=== PATIENT | female | born 1945 | race Caucasian/White ===

== ENCOUNTER 2016-02-25 13:24 | Inpatient (IN) | payer MEDICARE ==
[2016-02-25] MEDS ORDERED: ASPIRIN 81 MG TABLET, CHEWABLE PO ONE (13:35)
--- NOTE | 2016-02-25 13:37 | ER Document Report ---
ED Medical Screen (RME) - General Chief Complaint: Breathing Difficulty Stated Complaint: ABNORMAL LABS Time seen by provider: 13:33 Mode of Arrival: Ambulatory Information source: Patient Notes: 70 yo female presents to ed for abnormal labs and elevated bp and chest congestion with wheezing. She also has edema in both legs TRAVEL OUTSIDE OF THE [place] IN LAST 30 DAYS: No - HPI Onset: This morning Onset/Duration: Gradual Quality of pain: No pain Severity: None Pain Level: Denies Associated Symptoms: Leg swelling, Shortness of breath, Other - wheezing congestion Exacerbated by: Denies Relieved by: Denies Similar symptoms previously: Yes Recently seen / treated by doctor: Yes - Related Data Smoking: Non-smoker, Quit greater than 1 year Frequency of alcohol use: None Drug Abuse: None Allergies/Adverse Reactions: Sulfa (Sulfonamide Antibiotics) Allergy (Intermediate, Verified 05/08/13 10:53) Hives Past Medical History - Past Medical History Cardiac Medical History: Reports: Hx Hypertension Denies: Hx Heart Attack Pulmonary Medical History: Reports: Hx Asthma, Hx COPD Neurological Medical History: Reports: Hx Cerebrovascular Accident - X 3 RESIDULE EFFECTS RESOLVED, DIFFICULTY WALKING. Denies: Hx Seizures Endocrine Medical History: Reports: Hx Diabetes Mellitus Type 2 - with neuropathy GI Medical History: Denies: Hx Hepatitis, Hx Hiatal Hernia, Hx Ulcer Musculoskeltal Medical History: Reports Hx Arthritis Infectious Medical History: Denies: Hx Hepatitis Past Surgical History: Reports: Hx Cholecystectomy, Hx Hysterectomy, Hx Tubal Ligation. Denies: Hx Mastectomy, Hx Open Heart Surgery, Hx Pacemaker - Immunizations Hx Diphtheria, Pertussis, Tetanus Vaccination: No
--- NOTE | 2016-02-25 13:46 | EKG REPORT ---
SEVERITY:- ABNORMAL ECG - SINUS TACHYCARDIA ATRIAL PREMATURE COMPLEX NONSPECIFIC REPOL ABNORMALITY, DIFFUSE LEADS : Confirmed by: Jere Ryan 25-Feb-2016 13:21:57
[2016-02-25 14:01] LABS: ABSOLUTE BASOPHILS # (AUTO) 0.1 10^3/uL (0.0-0.2); ABSOLUTE EOSINOPHILS # (AUTO) 0.2 10^3/uL (0.0-0.6); ABSOLUTE LYMPHOCYTES (AUTO) 1.4 10^3/uL (0.5-4.7); ABSOLUTE MONOCYTES (AUTO) 0.4 10^3/uL (0.1-1.4); ABSOLUTE NEUT (AUTO) 5.5 10^3/uL (1.7-8.2); BASOPHILS % (AUTO) 0.9 % (0-2); EOSINOPHILS % (AUTO) 2.3 % (0-6); HEMATOCRIT 34.9 % (36.0-47.0); HEMOGLOBIN 11.8 g/dL (12.0-15.5); HGB HCT DIFFERENCE 0.5; MEAN CORPUSCULAR HEMOGLOBIN 29.8 pg (27.0-33.4); MEAN CORPUSCULAR HGB CONC 33.8 g/dL (32.0-36.0); MEAN CORPUSCULAR VOLUME 88 fl (80-97); MONOCYTES % (AUTO) 5.8 % (3-13); RED BLOOD COUNT 3.95 10^6/uL (3.72-5.28); RED CELL DISTRIBUTION WIDTH 15.1 % (11.5-14.0); WHITE BLOOD COUNT 7.6 10^3/uL (4.0-10.5)
[2016-02-25 14:20] LABS: ALANINE AMINOTRANSFERASE 40 U/L (9-52); ALBUMIN 3.7 g/dL (3.5-5.0); ALKALINE PHOSPHATASE 139 U/L (38-126); ANION GAP 10 (5-19); ASPARTATE AMINO TRANSFERASE 27 U/L (14-36); BILIRUBIN,TOTAL 0.5 mg/dL (0.2-1.3); BLOOD UREA NITROGEN 13 mg/dL (7-20); CALCIUM 9.2 mg/dL (8.4-10.2); CARBON DIOXIDE 25 mmol/L (22-30); CHLORIDE 107 mmol/L (98-107); CREATINE KINASE 202 U/L (30-135); CREATININE RESULT 1.11 mg/dL (0.52-1.25); GLUCOSE 190 mg/dL (75-110); MAGNESIUM 2.1 mg/dL (1.6-2.3); POTASSIUM 4.8 mmol/L (3.6-5.0)
[2016-02-25 14:32] LABS: CREATINE KINASE MB 0.99 ng/mL (<4.55)
[2016-02-25 14:38] LABS: TROPONIN I 0.046 ng/mL
[2016-02-25] MEDS ORDERED: LISINOPRIL 10 MG TABLET PO ONE (14:52)
--- NOTE | 2016-02-25 16:10 | ER Document Report ---
ED General - General Chief Complaint: Breathing Difficulty Stated Complaint: ABNORMAL LABS Mode of Arrival: Ambulatory Notes: The patient is a 70-year-old female presents from her primary care physician after her blood pressure was 190s over 90s. She had an EKG performed and it was concerning and she was sent to the ER. She is only having mild shortness of breath with a wet cough and mild B/L LE swelling. She has never been diagnosed with hypertension. She denies chest pain, nausea, vomiting, fevers, cough, sputum, rash, back pain, abdominal pain or headache. TRAVEL OUTSIDE OF THE [place] IN LAST 30 DAYS: No - Related Data Allergies/Adverse Reactions: Sulfa (Sulfonamide Antibiotics) Allergy (Intermediate, Verified 05/08/13 10:53) Hives Past Medical History - General Information source: Patient - Social History Smoking Status: Never Smoker Frequency of alcohol use: None Drug Abuse: None Family History: Reviewed & Not Pertinent Patient has suicidal ideation: No Patient has homicidal ideation: No - Past Medical History Cardiac Medical History: Reports: Hx Hypertension Denies: Hx Heart Attack Pulmonary Medical History: Reports: Hx Asthma, Hx COPD Neurological Medical History: Reports: Hx Cerebrovascular Accident - X 3 RESIDULE EFFECTS RESOLVED, DIFFICULTY WALKING. Denies: Hx Seizures Endocrine Medical History: Reports: Hx Diabetes Mellitus Type 2 - with neuropathy GI Medical History: Denies: Hx Hepatitis, Hx Hiatal Hernia, Hx Ulcer Musculoskeltal Medical History: Reports Hx Arthritis Infectious Medical History: Denies: Hx Hepatitis Past Surgical History: Reports: Hx Cholecystectomy, Hx Hysterectomy, Hx Tubal Ligation. Denies: Hx Mastectomy, Hx Open Heart Surgery, Hx Pacemaker - Immunizations Hx Diphtheria, Pertussis, Tetanus Vaccination: No Review of Systems - Review of Systems Notes: REVIEW OF SYSTEMS: CONSTITUTIONAL: Denies fever, chills, or sweats. Denies recent illness. EENT: Denies eye, ear, throat, or mouth pain or symptoms. Denies nasal or sinus congestion. CARDIOVASCULAR: Denies chest pain, syncope. RESPIRATORY: Denies cough, cold, or chest congestion. +SOB. Denies difficulty breathing, or wheezing. GASTROINTESTINAL: Denies abdominal pain. Denies nausea, vomiting, or diarrhea. Denies constipation. GENITOURINARY: Denies difficulty urinating, painful urination, burning, frequency, or blood in urine. MUSCULOSKELETAL: Denies neck or back pain or joint pain. +B/L LE edema SKIN: Denies rash or skin lesions. HEMATOLOGIC: Denies easy bruising or bleeding. LYMPHATIC: Denies swollen, enlarged glands. NEUROLOGICAL: Denies altered mental status or loss of consciousness. Denies headache. Denies weakness or paralysis or loss of use of either side. Denies problems with gait or speech. Denies sensory or motor loss. PSYCHIATRIC: Denies anxiety or stress or depression. ALL OTHER SYSTEMS REVIEWED AND NEGATIVE. Physical Exam - Vital signs Vitals: Temp Pulse Resp BP Pulse Ox 97.9 F 104 H 18 217/106 H 96 02/25/16 13:31 02/25/16 13:31 02/25/16 13:31 02/25/16 13:31 02/25/16 13:31 - Notes Notes: PHYSICAL EXAMINATION: GENERAL: Well-appearing, well-nourished and in no acute distress. HEAD: Atraumatic, normocephalic. EYES: Pupils equal round and reactive to light, extraocular movements intact, sclera anicteric, conjunctiva are normal. ENT: nares patent, oropharynx clear without exudates. Moist mucous membranes. NECK: Normal range of motion, supple without lymphadenopathy LUNGS: Mild rhonchi. No increased work of breathing. HEART: Tachycardia. No peripheral edema. ABDOMEN: Soft, nontender, normoactive bowel sounds. No guarding, no rebound. No masses appreciated. EXTREMITIES: Normal range of motion. Mild B/L LE edema. No cyanosis. NEUROLOGICAL: Cranial nerves grossly intact. Normal speech, normal gait. Normal sensory, motor, and reflex exams. PSYCH: Normal mood, normal affect. SKIN: Warm, Dry, normal turgor, no rashes or lesions noted. Course - Re-evaluation Re-evalutation: Patient without chest pain. EKG does not show acute ischemia. HEART score 2. Patient has tachycardia and is low to moderate risk per well's. D-dimer is elevated and CTA chest obtained. 02/25/16 17:31 CTA does not show evidence of pulmonary embolism, but does show evidence of pulmonary edema. Patient has no history of hypertension or CHF. Will provide IV Lasix and admit as Inpatient for further evaluation and treatment of new onset pulmonary edema. Spoke to Dr. Polanco and she has accepted patient at 17:30. - Vital Signs Vital signs: Temp Pulse Resp BP Pulse Ox 97.9 F 104 H 27 H 217/106 H 95 02/25/16 13:31 02/25/16 13:31 02/25/16 15:03 02/25/16 13:31 02/25/16 15:03 - Laboratory Result Diagrams: 02/25/16 13:40 02/25/16 13:40 Laboratory results interpreted by me: 02/25/16 02/25/16 02/25/16 13:40 13:40 13:40 Hgb 11.8 L Hct 34.9 L RDW 15.1 H D-Dimer 1.24 H Est GFR ( Amer) 59 L Est GFR (Non-Af Amer) 49 L Glucose 190 H Alkaline Phosphatase 139 H Creatine Kinase 202 H - Diagnostic Test Radiology reviewed: Image reviewed Radiology results interpreted by me: CTA: Evidence of pulmonary edema. No PE. - EKG Interpretation by Me EKG shows normal: Sinus rhythm, Intervals, QRS Complexes, ST-T Waves Rate: Tachycardia Rhythm: NSR Critical Care Note - Critical Care Note Total time excluding time spent on procedures (mins): 40 Discharge - Discharge Clinical Impression: Shortness of breath Pulmonary edema Qualifiers: Chronicity: acute Qualified Code(s): J81.0 - Acute pulmonary edema Condition: Stable Disposition: ADMITTED INPATIENT Admitting Provider: Hospitalist - [facility] Admitted: Telemetry
[2016-02-25] MEDS ORDERED: FUROSEMIDE INJ/PF 40 MG/4 ML SDV IV ONE (17:28)
[2016-02-25] MEDS ORDERED: DEXTROSE 50%-WATER 25 GM/50 ML DISP.SYRIN IV PRN ×2 (18:27)
[2016-02-25] MEDS ORDERED: GLUCAGON,HUMAN RECOMB 1 MG INJ IM PRN (18:27)
[2016-02-25] MEDS ORDERED: DEXTROSE 40% GEL 15 GM TUBE PO PRN ×2 (18:27)
[2016-02-25] MEDS ORDERED: CARVEDILOL 6.25 MG TABLET ONE (18:42)
--- NOTE | 2016-02-25 18:55 | PDOC H&P ---
History of Present Illness Admission Date/PCP: 02/25/2016 [facility] History of Present Illness: VAMSHI LYN is a 70 year old female who was sent from Urgent Care for evaluation of an abnormal EKG and Hypertension Patient gave a history of increasing dyspnea on exertion , pedal edema ; no crushing chest pains she also gives a history of intermittent claudication both lower extremities when she walks 300 feet In ED on arival BP was 217/106, a chest xray was consistent with CHF and bilateral effusions; She was admitted with a diagnosis of new onset CHF and accelerated HTN under Hospitalist's service Past Medical History Cardiac Medical History: Reports: Hypertension Denies: Myocardial Infarction Pulmonary Medical History: Reports: Asthma, Chronic Obstructive Pulmonary Disease (COPD) Neurological Medical History: Denies: Seizures Endocrine Medical History: Reports: Diabetes Mellitus Type 2 - with neuropathy GI Medical History: Denies: Hepatitis, Hiatal Hernia Musculoskeltal Medical History: Reports: Arthritis Hematology: Denies: Anemia, Sickle Cell Disease Past Surgical History Past Surgical History: Reports: Cholecystectomy, Hysterectomy, Tubal Ligation, Other - cataract surgery Denies: Amputation, Mastectomy, Pacemaker Social History Information Source: Patient Lives with: Family Smoking Status: Never Smoker Frequency of Alcohol Use: None Drugs: None Hx Prescription Drug Abuse: No - Advance Directive Resuscitation Status: Full Code Surrogate healthcare decision maker:: Simon Lyn Family History Parental Family History Reviewed: Yes - father mother heart disease Children Family History Reviewed: Yes - 2 sons in good health Sibling(s) Family History Reviewed.: Yes - brother unknown cause Medication/Allergy Home Medications: Gabapentin [Neurontin 300 Mg Capsule] 600 mg PO TID 06/29/12 Glipizide [Glucotrol Xl] 10 mg PO BID 06/29/12 Naproxen 500 mg PO BID 02/05/14 Naproxen [Naprosyn 250 mg Tablet] 500 mg PO DAILY PRN #30 tablet 02/05/14 Omeprazole [Prilosec] 20 mg PO DAILY #30 capsule. 02/05/14 Tramadol HCl [Ultram 50 mg Tablet] 50 mg PO TID 02/05/14 Diazepam [Valium 5 Mg Tablet] 5 mg PO Q8HP PRN #20 tablet 09/14/15 Diclofenac Sodium [Voltaren] 75 mg PO BIDP PRN #20 tablet. 09/14/15 Docusate Sodium [Colace 100 mg Capsule] 100 mg PO BID #60 capsule 12/27/15 Lansoprazole 30 mg PO DAILY #30 capsule. 12/27/15 Sennosides [Senna] 8.6 mg PO QHS #30 tablet 12/27/15 Sucralfate [Carafate 1 gm Tablet] 1 gm PO ACHS #30 tablet 12/27/15 Allergies/Adverse Reactions: Sulfa (Sulfonamide Antibiotics) Allergy (Intermediate, Verified 05/08/13 10:53) Hives Review of Systems Constitutional: ABSENT: chills, fever(s), headache(s), weight gain, weight loss Eyes: ABSENT: visual disturbances Ears: ABSENT: hearing changes Cardiovascular: PRESENT: chest pain - under right breast at times non exertional. ABSENT: dyspnea on exertion, edema, orthropnea, palpitations Respiratory: PRESENT: as per HPI, dyspnea. ABSENT: cough, hemoptysis, sputum Gastrointestinal: ABSENT: abdominal pain, constipation, diarrhea, hematemesis, hematochezia, nausea, vomiting Genitourinary: ABSENT: dysuria, hematuria Musculoskeletal: PRESENT: other - pain legs(calves ) if she ambulates 300 feet cramps resolve at rest. ABSENT: joint swelling Integumentary: ABSENT: rash, wounds Neurological: ABSENT: abnormal gait, abnormal speech, confusion, dizziness, focal weakness, syncope Psychiatric: ABSENT: anxiety, depression, homidical ideation, suicidal ideation Endocrine: ABSENT: cold intolerance, heat intolerance, polydipsia, polyuria Hematologic/Lymphatic: ABSENT: easy bleeding, easy bruising Physical Exam Vital Signs: Temp Pulse Resp BP Pulse Ox 97.9 F 104 H 23 H 161/100 H 99 02/25/16 13:31 02/25/16 13:31 02/25/16 17:23 02/25/16 17:23 02/25/16 17:23 Intake & Output 02/24/16 02/25/16 02/26/16 00:59 00:59 00:59 Weight 69.717 kg General appearance: PRESENT: no acute distress, well-developed, well-nourished Head exam: PRESENT: atraumatic, normocephalic Eye exam: PRESENT: conjunctiva pink, EOMI, PERRLA. ABSENT: scleral icterus Ear exam: PRESENT: normal external ear exam Mouth exam: PRESENT: moist, tongue midline Neck exam: ABSENT: carotid bruit, JVD, lymphadenopathy, thyromegaly Respiratory exam: PRESENT: clear to auscultation gita. ABSENT: rales, rhonchi, wheezes Cardiovascular exam: PRESENT: RRR. ABSENT: diastolic murmur, rubs, systolic murmur Pulses: PRESENT: normal dorsalis pedis pul Vascular exam: PRESENT: normal capillary refill GI/Abdominal exam: PRESENT: normal bowel sounds, soft. ABSENT: distended, guarding, mass, organolmegaly, rebound, tenderness Rectal exam: PRESENT: deferred Extremities exam: PRESENT: full ROM. ABSENT: calf tenderness, clubbing, pedal edema Neurological exam: PRESENT: alert, awake, oriented to person, oriented to place , oriented to time, oriented to situation, CN II-XII grossly intact. ABSENT: motor sensory deficit Psychiatric exam: PRESENT: appropriate affect, normal mood. ABSENT: homicidal ideation, suicidal ideation Skin exam: PRESENT: dry, intact, warm. ABSENT: cyanosis, rash Results Laboratory Results: 02/25/16 13:40 02/25/16 13:40 02/25/16 02/25/16 13:40 13:40 WBC 7.6 RBC 3.95 Hgb 11.8 L Hct 34.9 L MCV 88 MCH 29.8 MCHC 33.8 RDW 15.1 H Plt Count 296 Seg Neutrophils % 73.0 Lymphocytes % 18.0 Monocytes % 5.8 Eosinophils % 2.3 Basophils % 0.9 Absolute Neutrophils 5.5 Absolute Lymphocytes 1.4 Absolute Monocytes 0.4 Absolute Eosinophils 0.2 Absolute Basophils 0.1 Sodium 142.0 Potassium 4.8 Chloride 107 Carbon Dioxide 25 Anion Gap 10 BUN 13 Creatinine 1.11 Est GFR ( Amer) 59 L Est GFR (Non-Af Amer) 49 L Glucose 190 H Calcium 9.2 Magnesium 2.1 Total Bilirubin 0.5 AST 27 ALT 40 Alkaline Phosphatase 139 H Total Protein 7.0 Albumin 3.7 02/25/16 02/25/16 02/25/16 13:40 13:40 16:28 Creatine Kinase 202 H CK-MB (CK-2) 0.99 Troponin I 0.046 0.045 EKG Comments: sinus tachycardia ST-T changes on precordial leads no previous EKG to compare with Impressions: Chest X-Ray 02/25/16 13:35 IMPRESSION: There is some blunting of the right costophrenic angle suggesting a tiny pleural effusion. Visualized lung leija are otherwise clear. Other findings as noted above Chest/Abdomen CTA 02/25/16 16:09 IMPRESSION: Bilateral pleural effusions and mild interstitial prominence, suggest pulmonary edema. NO PULMONARY EMBOLI. Assessment & Plan - Diagnosis (1) CHF (congestive heart failure) Qualifiers: Congestive heart failure type: unspecified congestive heart failure type Is this a current diagnosis for this admission?: YesPlan: initiate lasix coreg ASA lipitor echo in am (2) Accelerated essential hypertension Is this a current diagnosis for this admission?: YesPlan: reevaluate BP in am BP improved with diuresis (3) Claudication of both lower extremities Is this a current diagnosis for this admission?: YesPlan: likely PVD arterial doppler lower extrmities ordered ASA (4) Abnormal EKG Is this a current diagnosis for this admission?: YesPlan: initial troponin intermediate range serial troponins and EKG (5) Diabetes Qualifiers: Diabetes mellitus type: type 2 Diabetes mellitus complication status: with unspecified complications Diabetes mellitus custodial insulin use: without terminal operations manager use Qualified Code(s): E11.8 - Type 2 diabetes mellitus with unspecified complications Is this a current diagnosis for this admission?: YesPlan: obtain Hemoglobin A1C accuchecks TERESO HS lispro coverage - Time Time Spent: Greater than 70 Minutes
[2016-02-25] MEDS ORDERED: CARVEDILOL 6.25 MG TABLET PO ONE (19:00)
[2016-02-25] MEDS ORDERED: ATORVASTATIN CALCIUM 40 MG TABLET PO SCH (22:00)
[2016-02-25] MEDS: CARVEDILOL 6.25 MG TABLET PO SCH (22:25)
[2016-02-25] MEDS: INSULIN LISPRO 100 UNIT/ML 3 ML VIAL SUBCUT PRN (22:26)
[2016-02-25] MEDS: FAMOTIDINE INJ/PF 20 MG/2 ML SDV IV SCH (22:27)
[2016-02-25] MEDS: FUROSEMIDE INJ/PF 40 MG/4 ML SDV IV SCH (22:27)
[2016-02-26] MEDS: INSULIN LISPRO 100 UNIT/ML 3 ML VIAL SUBCUT PRN ×2 (07:48→11:25)
[2016-02-26 07:50] LABS: ABSOLUTE EOSINOPHILS # (AUTO) 0.1 10^3/uL (0.0-0.6); ABSOLUTE LYMPHOCYTES (AUTO) 1.3 10^3/uL (0.5-4.7); ABSOLUTE MONOCYTES (AUTO) 0.5 10^3/uL (0.1-1.4); ABSOLUTE NEUT (AUTO) 5.5 10^3/uL (1.7-8.2); BASOPHILS % (AUTO) 0.6 % (0-2); EOSINOPHILS % (AUTO) 0.9 % (0-6); HEMATOCRIT 34.6 % (36.0-47.0); HEMOGLOBIN 11.4 g/dL (12.0-15.5); HGB HCT DIFFERENCE -0.4; MEAN CORPUSCULAR HEMOGLOBIN 28.9 pg (27.0-33.4); MEAN CORPUSCULAR HGB CONC 33.1 g/dL (32.0-36.0); MEAN CORPUSCULAR VOLUME 87 fl (80-97); MONOCYTES % (AUTO) 6.3 % (3-13); RED BLOOD COUNT 3.96 10^6/uL (3.72-5.28); RED CELL DISTRIBUTION WIDTH 14.5 % (11.5-14.0); SEGMENTED NEUTROPHILS % (AUTO) 74.2 % (42-78); WHITE BLOOD COUNT 7.4 10^3/uL (4.0-10.5)
[2016-02-26 08:00] LABS: ALANINE AMINOTRANSFERASE 32 U/L (9-52); ALBUMIN 3.6 g/dL (3.5-5.0); ALKALINE PHOSPHATASE 132 U/L (38-126); ANION GAP 14 (5-19); ASPARTATE AMINO TRANSFERASE 28 U/L (14-36); BILIRUBIN,TOTAL 0.8 mg/dL (0.2-1.3); BLOOD UREA NITROGEN 17 mg/dL (7-20); CALCIUM 9.4 mg/dL (8.4-10.2); CARBON DIOXIDE 22 mmol/L (22-30); CHLORIDE 107 mmol/L (98-107); CHOLESTEROL 321.02 mg/dL (0-200); CREATININE RESULT 1.34 mg/dL (0.52-1.25); Direct HDL 64 mg/dL (>40); GLUCOSE 142 mg/dL (75-110); POTASSIUM 4.4 mmol/L (3.6-5.0); SODIUM 142.7 mmol/L (137-145); TRIGLYCERIDES 135 mg/dL (<150)
[2016-02-26] MEDS ORDERED: ENOXAPARIN SODIUM INJ 40 MG/0.4 ML DISP.SYRIN SUBCUT SCH (08:00)
[2016-02-26 08:21] LABS: DIRECT LDL 247 mg/dL (<100)
[2016-02-26] MEDS: FAMOTIDINE INJ/PF 20 MG/2 ML SDV IV SCH (09:14)
[2016-02-26] MEDS: FUROSEMIDE INJ/PF 40 MG/4 ML SDV IV SCH (09:15)
[2016-02-26] MEDS: CARVEDILOL 6.25 MG TABLET PO SCH (09:15)
[2016-02-26] MEDS ORDERED: ASPIRIN 325 MG TABLET, ENT COATED PO SCH (10:00)
--- NOTE | 2016-02-26 10:19 | EKG REPORT ---
SEVERITY:- ABNORMAL ECG - SINUS RHYTHM ANTERIOR INFARCT, OLD BORDERLINE PROLONGED QT INTERVAL : Confirmed by: Jere Ryan 26-Feb-2016 10:18:28
--- NOTE | 2016-02-26 12:52 | XCELERA REPORT ---
[address] [address] Lower Extremity Arterial Evaluation Name: VAMSHI DOUGHERTY Age: 70 yrs Gender: Female : 1945 Patient Status: Inpatient Patient Location: [id number]\S\314\S\A Study Date: 02/26/2016 09:55 AM Procedure: A color flow and duplex scan of the lower extremity arteries was performed bilaterally with velocity and waveform anaylsis. Ankle brachial indicies performed. 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 Biphasic in the Infrageniculate vessels. The ankle-brachial index is not obtainable, non compressible. 20-49 % stenosis is noted at the Infrageniculate level. Left Side Arterial Evaluation Normal velocity, waveform and triphasic flow are present, from the Common Femoral artery down to the Popliteal artery. Monophasic in the Infrageniculate vessels. Occluded Posterior Tibial artery The ankle-brachial index is not obtainable, non compressible. 50-99 % stenosis is noted at the Infrageniculate level. sequential disease as noted. Interpretation Summary Moderate hemodynamically significant lesions in the right lower extremity only, on duplex imaging, at rest. Severe hemodynamically significant lesions in the left lower extremity only, on duplex imaging, at rest. : IRVING RODRIGUEZ > Srinivasa Razo
--- NOTE | 2016-02-26 13:22 | XCELERA REPORT ---
[address] [address] Transthoracic Echocardiogram Report Name: VAMSHI DOUGHERTY Age: 70 yrs Gender: Female : 1945 Patient Status: Inpatient Patient Location: 3W\S\314\[id number]\A Study Date: 02/26/2016 09:28 AM Height: 63 in Weight: 152 lb BSA: 1.7 m2 Procedure: A two-dimensional transthoracic echocardiogram with color flow and Doppler was performed. The study was technically adequate with some images being suboptimal in quality. Reason For Study: SOB History: Shortness of breath. Ordering Physician: IRVING RODRIGUEZ Performed By: Aruna Feliciano Interpretation Summary The left ventricle is normal in size. There is normal left ventricular wall thickness. LV EF is 60% Left ventricular systolic function is normal. Doppler measurements suggest impaired left ventricular relaxation, which is associated with grade I/IV or mild diastolic dysfunction The left ventricular wall motion is normal. There is no thrombus. The right ventricle is normal in size and function. The left atrial size is normal. There is no evidence of mitral valve prolapse. There is no mitral valve stenosis. There is a mild amount of mitral regurgitation There is no aortic valve stenosis There is no LVOT obstruction. No aortic regurgitation is present. There is no tricuspid stenosis. There is a trace to mild amount of tricuspid regurgitation There is mild pulmonary hypertension by echo RVSP is 36 mm of Hg , with RA mean of 5. There is no pericardial effusion. MMode/2D Measurements \T\ Calculations RVDd: 2.3 cm LVIDd: 4.4 cm FS: 26.6 % Ao root diam: 2.4 cm IVSd: 1.1 cm LVIDs: 3.2 cm EDV(Teich): 85.5 ml LVPWd: 1.1 cm ESV(Teich): 40.8 ml Ao root area: 4.5 cm2 EF(Teich): 52.3 % LA dimension: 3.5 cm Doppler Measurements \T\ Calculations MV E max mansi: MV P1/2t max mansi: Ao V2 max: LV V1 max P.4 cm/sec 83.4 cm/sec 126.1 cm/sec 4.2 mmHg MV A max mansi: MV P1/2t: 48.8 msec Ao max PG: LV V1 max: 108.6 cm/sec 6.4 mmHg 102.7 cm/sec MV E/A: 0.78 MVA(P1/2t): 4.5 cm2 MV dec slope: 500.4 cm/sec2 MV dec time: 0.15 sec PA V2 max: TR max mansi: 109.1 cm/sec 278.3 cm/sec PA max P.8 mmHgTR max P.0 mmHg Left Ventricle The left ventricle is normal in size. There is normal left ventricular wall thickness. LV EF is 60%. Left ventricular systolic function is normal. Doppler measurements suggest impaired left ventricular relaxation, which is associated with grade I/IV or mild diastolic dysfunction. The left ventricular wall motion is normal. There is no thrombus. There is no ventricular septal defect visualized. Right Ventricle The right ventricle is normal in size and function. Atria The right atrium is normal. The left atrial size is normal. The interatrial septum is intact with no evidence for an atrial septal defect. Mitral Valve There is no evidence of mitral valve prolapse. There is no vegetation seen on the mitral valve. There is no mitral valve stenosis. There is a mild amount of mitral regurgitation. Aortic Valve The aortic valve is trileaflet. The aortic valve opens well. There is no aortic valvular vegetation. There is no aortic valve stenosis. There is no LVOT obstruction. No aortic regurgitation is present. Tricuspid Valve There is no tricuspid stenosis. There is a trace to mild amount of tricuspid regurgitation. There is mild pulmonary hypertension by echo. RVSP is 36 mm of Hg , with RA mean of 5. Pulmonic Valve There is no pulmonic valvular stenosis. There is no pulmonic valvular regurgitation. Great Vessels The aortic root is normal size. Effusions There is no pericardial effusion. : IRVING RODRIGUEZ > Natasha Holcomb
[2016-02-26] MEDS ORDERED: TRAMADOL HCL 50 MG TABLET PO PRN (13:45)
[2016-02-26] MEDS ORDERED: ALBUTEROL SULFATE HFA (90 MCG/PUFF) 200 PUFF/8.5 GM MDI IH PRN (14:59)
[2016-02-26] MEDS ORDERED: CLOPIDOGREL BISULFATE 75 MG TABLET PO ONE (15:00)
[2016-02-26] MEDS ORDERED: FUROSEMIDE INJ/PF 20 MG/2 ML SDV IV ONE (15:00)
[2016-02-26 15:51] VITALS: BP 133/82
--- NOTE | 2016-02-26 15:58 | PDOC DISCHARGE SUMMARY ---
General - Admit/Disc Date/PCP Admission Date/Primary Care Provider: 02/25/16 18:13 PMD at [facility] Discharge Date: 02/26/16 - Discharge Diagnosis (1) CHF (congestive heart failure) Is this a current diagnosis for this admission?: YesSummary: CXR showed fluid overload CTA chest : no PE small pleural effusions echo showed preserved LVF mild diastolic dysfunction ; mild pulmonary hypertension Patient was treated with lasix IV , lisinopril, coreg (2) Accelerated essential hypertension Is this a current diagnosis for this admission?: YesSummary: adolfo presented with a BP of 217/106 she responded to lasix, lisinopril , coreg at discharge BP is 160/90 (3) Claudication of both lower extremities Is this a current diagnosis for this admission?: YesSummary: claudication both lower extremities after walking 300 feet arterial doppler showed severe PVD 20-49% stenosis on Right, 50-69% stenosis on Left paatient was discharged on plavix and lipitor and referred to Outpatient Vascular Surgeon (4) Abnormal EKG Is this a current diagnosis for this admission?: YesSummary: EKG with ST-T changes precaordiallaeds troponins intermediate range outpatient stress test recommended patient was discharged on lipitor and plavix (5) Diabetes Is this a current diagnosis for this admission?: YesSummary: hemoglobin A1C was 6 patient was discharged on prior med regimen (6) Hyperlipidemia Is this a current diagnosis for this admission?: Yes (7) COPD (chronic obstructive pulmonary disease) with acute bronchitis Is this a current diagnosis for this admission?: YesSummary: mild no purulent sputum added albuterol inhaler to med list - Additional Information Resuscitation Status: Do Not Resuscitate Discharge Diet: Cardiac, Diabetic Home Medications: Gabapentin [Neurontin 300 Mg Capsule] 800 mg PO DAILY 06/29/12 Glipizide [Glucotrol Xl] 10 mg PO BID 06/29/12 Tramadol HCl [Ultram 50 mg Tablet] 50 mg PO TID 02/05/14 Albuterol Sulfate [Proair HFA Inhalation Aerosol 8.5 gm MDI] 2 puff IH Q4HP PRN #1 hfa.aer.ad 02/26/16 Atorvastatin Calcium [Lipitor 40 mg Tablet] 40 mg PO QHS #30 tablet 02/26/16 Carvedilol [Coreg 12.5 mg Tablet] 12.5 mg PO Q12 #60 tablet 02/26/16 Clopidogrel Bisulfate [Plavix 75 mg Tablet] 75 mg PO DAILY #30 tablet 02/26/16 Furosemide [Lasix 20 mg Tablet] 20 mg PO QAM #30 tablet 02/26/16 Lisinopril [Prinivil] 20 mg PO DAILY #30 tablet 02/26/16 Sitagliptin Phos/Metformin HCl [Janumet 50-1,000 mg Tablet] 50 mg PO DAILY 02/25 History of Present Illness Patient complains of: shortness of breath History of Present Illness: VAMSHI DOUGHERTY is a 70 year old female who was sent from Urgent Care for evaluation of an abnormal EKG and Hypertension Patient gave a history of increasing dyspnea on exertion , pedal edema ; no crushing chest pains she also gives a history of intermittent claudication both lower extremities when she walks 300 feet In ED on arival BP was 217/106, a chest xray was consistent with CHF and bilateral effusions; She was admitted with a diagnosis of new onset CHF and accelerated HTN under Hospitalist's service Hospital Course Hospital Course: see above Physical Exam Vital Signs: Temp Pulse Resp BP Pulse Ox 98.1 F 92 20 160/90 H 98 02/26/16 11:31 02/26/16 14:00 02/26/16 11:31 02/26/16 11:31 02/26/16 11:31 Intake & Output 02/25/16 02/26/16 02/27/16 00:59 00:59 00:59 Intake Total 636 Balance 636 Weight 69.3 kg 69.3 kg General appearance: PRESENT: no acute distress, well-developed, well-nourished Head exam: PRESENT: atraumatic, normocephalic Eye exam: PRESENT: conjunctiva pink, EOMI, PERRLA. ABSENT: scleral icterus Ear exam: PRESENT: normal external ear exam Mouth exam: PRESENT: moist, tongue midline Neck exam: ABSENT: carotid bruit, JVD, lymphadenopathy, thyromegaly Respiratory exam: PRESENT: clear to auscultation gita. ABSENT: rales, rhonchi, wheezes Cardiovascular exam: PRESENT: RRR. ABSENT: diastolic murmur, rubs, systolic murmur Pulses: PRESENT: normal dorsalis pedis pul Vascular exam: PRESENT: normal capillary refill GI/Abdominal exam: PRESENT: normal bowel sounds, soft. ABSENT: distended, guarding, mass, organolmegaly, rebound, tenderness Rectal exam: PRESENT: deferred Extremities exam: PRESENT: full ROM. ABSENT: calf tenderness, clubbing, pedal edema Neurological exam: PRESENT: alert, awake, oriented to person, oriented to place , oriented to time, oriented to situation, CN II-XII grossly intact. ABSENT: motor sensory deficit Psychiatric exam: PRESENT: appropriate affect, normal mood. ABSENT: homicidal ideation, suicidal ideation Skin exam: PRESENT: dry, intact, warm. ABSENT: cyanosis, rash Results Laboratory Results: 02/26/16 06:53 02/26/16 06:53 02/26/16 02/26/16 02/26/16 06:53 06:53 06:53 WBC 7.4 RBC 3.96 Hgb 11.4 L Hct 34.6 L MCV 87 MCH 28.9 MCHC 33.1 RDW 14.5 H Plt Count 300 Seg Neutrophils % 74.2 Lymphocytes % 18.0 Monocytes % 6.3 Eosinophils % 0.9 Basophils % 0.6 Absolute Neutrophils 5.5 Absolute Lymphocytes 1.3 Absolute Monocytes 0.5 Absolute Eosinophils 0.1 Absolute Basophils 0.0 Sodium 142.7 Potassium 4.4 Chloride 107 Carbon Dioxide 22 Anion Gap 14 BUN 17 Creatinine 1.34 H Est GFR ( Amer) 47 L Est GFR (Non-Af Amer) 39 L Glucose 142 H Calcium 9.4 Magnesium 2.0 Total Bilirubin 0.8 AST 28 ALT 32 Alkaline Phosphatase 132 H Total Protein 7.0 Albumin 3.6 Triglycerides 135 Cholesterol 321.02 H LDL Cholesterol Direct 247 H VLDL Cholesterol 27.0 HDL Cholesterol 64 TSH 0.94 02/25/16 02/26/16 02/26/16 19:53 01:58 06:53 Troponin I 0.047 0.053 NT-Pro-B Natriuret Pep 7120 H Impressions: Chest X-Ray 02/25/16 13:35 IMPRESSION: There is some blunting of the right costophrenic angle suggesting a tiny pleural effusion. Visualized lung leija are otherwise clear. Other findings as noted above Chest/Abdomen CTA 02/25/16 16:09 IMPRESSION: Bilateral pleural effusions and mild interstitial prominence, suggest pulmonary edema. NO PULMONARY EMBOLI. Plan Discharge Plan: discharge home to follow up with PMD as outpatient Time Spent: Greater than 30 Minutes
[2016-02-26] MEDS ORDERED: FUROSEMIDE INJ/PF 20 MG/2 ML SDV IV SCH (22:00)
[2016-02-27] MEDS ORDERED: LISINOPRIL 10 MG TABLET PO SCH ×2 (10:00)
[2016-02-27] MEDS ORDERED: CLOPIDOGREL BISULFATE 75 MG TABLET PO SCH (10:00)
--- NOTE | 2016-02-29 10:48 | CONSULTATION REPORT E ---
Consultation Report NAME: VAMSHI DOUGHERTY : 1945 AGE: 70Y DATE: 02/26/2016 314 A TO: JAVIER GREEN M.D. FROM: Requesting Physician REASON FOR CONSULTATION: Congestive heart failure. HISTORY: The patient is a 70-year-old female with known history of hypertension and diabetes mellitus with diabetic nephropathy and neuropathy who states that since has been having some runny nose and symptoms of upper respiratory tract infection and subsequently has been having shortness of breath with wheezing and orthopnea and cough productive of whitish sputum. Yesterday she went to primary care physician who saw that she had abnormal labs and also uncontrolled blood pressure and sent to the ER. It was reported on the chest x-ray there might be some mild prominence of flash congestive heart failure on the primary CTA. On the primary CTA, there was no pulmonary emboli seen. The patient denies any chest pain or discomfort. There is no PND. There is some mild leg edema which has now come down to trace edema after she was diuresed in the ER. She has had some mild lower extremity edema. There is no recurrent TIA or CVA symptom. PAST MEDICAL HISTORY: Positive for: 1. Hypertension. 2. History of diabetes mellitus type 2, noninsulin dependent. 3. The patient has diabetic neuropathy. The patient has also some degree of nephropathy with the patient's GFR being 36 in March 2015. 4. She has significant pain in her legs. It is not clear whether the patient has claudication because she says she always hurts in her lower extremities due to neuropathy. 5. The patient states she has had 3 episodes of CVA from which she has fully recovered except that her gait is not very steady and has to use a walker occasionally. She states that the last CVA was more than 11 years ago. She in the past has had some episodes of rapid beating of the heart but that has not recurred in a long time. She has no syncope. There is no history of ND or coronary artery disease or anginal symptoms. 6. The patient also has a history of asthma and COPD. There is no history of seizures. PAST SURGICAL HISTORY: 1. Cholecystectomy. 2. Hysterectomy. 3. Tubal ligation. FAMILY HISTORY: Negative for coronary artery disease. Positive for hypertension and diabetes. CODE STATUS: This patient is a FULL CODE. Her is her surrogate healthcare decision maker. SOCIAL HISTORY: The patient does not smoke. There is no history of ETOH abuse. MEDICATIONS: As per the MAR which is: 1. Aspirin 325 mg p.o. now and 81 mg p.o. daily. 2. Lisinopril 10 mg p.o. daily along with 20 mg of lisinopril p.o. daily, a total of 30 mg per day. 3. Plavix 75 mg p.o. daily. 4. Lasix 20 mg IM x1. 5. Albuterol sulfate 2 puffs inhalation q.4 hours p.r.n. 6. Tramadol 50 mg p.o. t.i.d. 7. Aspirin 325 mg p.o. daily. 8. Lovenox 40 mg subcutaneously. 9. Atorvastatin 40 mg p.o. daily at bedtime. 10. Coreg 6.25 mg p.o. q.12 hours. 11. Sliding scale insulin coverage of t.i.d. and at bedtime. 12. Hypoglycemic precautions with glucose 15 g p.o. p.r.n. and 30 g p.o. p.r.n. She is also on hypoglycemic precautions with Dextrose 50% at 25 g IV and 12.5 g IV p.r.n. hypoglycemia. She is on Glucagon 1 mg IM p.r.n. PHYSICAL EXAMINATION: GENERAL: On examination, the patient is well built and well nourished in no acute distress. VITAL SIGNS: She is afebrile with temperature of 98.1 degrees Fahrenheit orally. Pulse is 97 beats per minute. Blood pressure 160/90. Respirations of 20 per minute. O2 saturations are 98% on room air. HEENT: Head is atraumatic, normocephalic. Eyes: Pupils are equal, round, regular, reactive to light and accommodation. Extraocular movements are normal. There is no conjunctival pallor. There is no scleral icterus. Ears: Tympanic membranes are intact. External auditory canals are clear. Nose: There is no deviated nasal septum. There is no inflammation of the nasal mucous membranes. Mouth: Mucous membranes of the mouth are moist. Tongue is moist. There are no ulcers. There is no bleeding from the gums. Throat: There is no redness of the oropharynx. There are no exudates. SKIN: There are no skin rashes. There is no petechiae or ecchymosis. There are no skin lesions. NECK: Supple. There is no JVD. Carotids are equal; there is no bruit. There is no goiter. There is no lymphadenopathy. Trachea is central. LUNGS: There is diminished air entry and prolonged expiration. There is scattered rhonchi and wheezing present bilaterally. There are no rales or CHF. On percussion, there is hyperresonance. CARDIOVASCULAR: S1, S2 are heard. There is no S3 gallop. There is no S4 gallop. There is systolic murmur of mitral regurgitation present. There is no rub. ABDOMEN: Soft, nontender. There is no hepatosplenomegaly. Bowel sounds are well heard. EXTREMITIES: Femorals are diminished. There are no femoral bruits. Leg pulses are diminished. There is no present history of pedal edema. There is no DVT or cellulitis. There is no calf tenderness. CENTRAL NERVOUS SYSTEM: The patient is conscious, awake, alert, oriented x3 with no focal deficits. PSYCHIATRIC: The patient's judgement and insight are intact. Her affect is normal. REVIEW OF SYSTEMS: CONSTITUTIONAL: Denies any fevers, chills, or rigors. There are no sweats. She has a runny nose as mentioned earlier. EYES: No history of diplopia or amblyopia. No history of amaurosis fugax. HEAD: No history of headaches or head injury. EARS: No history of tinnitus. No history of hearing loss. No history of vertigo. NOSE: No history of hay fever. No history of nosebleeds. No history of nasal polyps. MOUTH: No histo of altered taste sensation. No ulcers in the mouth. No bleeding from the gums. THROAT: There is no odynophagia or dysphagia. There is recurrent sore throats. SKIN: There is no skin rash. There is no psoriasis. There is no skin cancer. There is pruritus. There is no yellowish discoloration of the skin. NECK: There is no painful or painless swelling of the neck. There is no goiter. LUNGS: The patient recently has been having sneezing and orthopnea and cough productive of white sputum. She has a history of asthma and COPD. There is no history of sleep apnea. No history of pulmonary embolism. No history of hemoptysis. CARDIAC: No prior history of congestive heart failure. No history of coronary artery disease. Past history of 1 episode of rapid beating of the heart that did not require any treatments by itself. The patient has no PND. She has mild pedal edema. There is no history of congestive heart failure in the past. There are no palpitations or syncope. There is no rheumatic heart fever. There is no coronary heart disease. GASTROINTESTINAL: No history of GI bleed. No history of peptic ulcer disease. No history of GI bleed. No history of jaundice. No history of fatty food intolerance. No altered bowel movements. No abdominal pain. ENDOCRINE: History of diabetes mellitus type 2 noninsulin dependent. No history of polydipsia, polyuria. No history of heat or cold intolerance. No history of thyroid disorder. There is no hirsutism. There is no excess sweating. RENAL: Looks like the patient has since March acute kidney disease stage III which she continues to have. There are no symptoms of UTI. There is no history of pyuria or dysuria. MUSCULOSKELETAL: History of osteoarthritis present. No collagen vascular disease. CENTRAL NERVOUS SYSTEM: Past history of previous CVA with no recurrence. The last one was more than 11 years ago. There is no residual effect. There is no sleep apnea. There are no headaches, migraines, or seizures. PSYCHIATRIC: There is no anxiety or depression. There is no suicidal ideation. VASCULAR: The patient had a lower extremity artery Doppler study which showed moderately significant hemodynamic lesion on the right lower extremity and severe hemodynamic lesion on the left side. It is not clear whether the patient has claudication since she has constant leg pain due to neuropathy. There is no history of DVT. HEMATOLOGIC: No history of bleeding diathesis. No history of clotting disorder. LABORATORY DATA: The patient's laboratory data shows a sodium of 142, potassium 4.6, chloride 107, CO2 is 25. The patient's BUN is 18, creatinine is 1.12, GFR is reduced at 48 due to chronic kidney disease stage III. The patient's glucose is 134. The patient's calcium is 9.2. The patient's liver function tests are normal except for mildly elevated alkaline phosphatase of 128. The patient's total protein is 7.8. Albumin is 4.1. The patient's lipase is 99.1 which is normal. The patient's white count is 7400, hemoglobin 11.4, hematocrit 34.6, platelet count is 300,000. The patient's D-dimer is 1.24. The patient's chest x-ray does not show any congestive heart failure. The patient's CTA shows no pulmonary embolism. There is some mild interstitial prominence and some pleural effusions. The chest x-ray shows some pleural effusions on both sides. Note that the patient was first seen by the hospitalist. Her blood pressure in the emergency room was 217/106. IMPRESSION: 1. Clinically, no congestive heart failure at present, most likely if at all there was it has resolved. It could be secondary to patient's accelerated hypertension. 2. Accelerated hypertension. 3. COPD acute exacerbation. 4. Diabetes mellitus type 2 noninsulin dependent. 5. Diabetic neuropathy and nephropathy. 6. CKD stage III. 7. Anemia. 8. Peripheral arterial disease. 9. History of CVA in the past with no recurrence in a long time. RECOMMENDATIONS: Would control the patient's blood pressure. Would stop the patient's Lasix. Continue her antidiabetic medication and also continue her lisinopril and her Coreg. Continue Plavix. Continue albuterol treatment. Would recommend an antibiotic prior to discharge. Continue glipizide. The patient patient of mine. The patient wants to follow up with me. Will have the patient call the office when she is ready to see me. I have asked the patient to call back in a week so that I can follow up with the patient. Note the patient needs her renal function checked again to make sure it is not going up. Will follow with you. DICTATING PHYSICIAN: JAVIER GREEN M.D. [id number] PHY#: [id number] 2017 ID: [id number] JOB#: [id number] ACCT: [id number] cc:JAVIER GREEN M.D. >
== END 2016-02-26 15:59 | disposition home or self-care (01) | DRG 291 ==
LOC: ER 13:24 → EH 18:13 → UNDOADMIN 18:48 → EH 18:48 → 3W 21:20
PROVIDERS: ADMIT Emergency Medicine; ATTEND Emergency Medicine
DX: I13.0 Hypertensive heart and chronic kidney disease with heart failure and stage 1 through stage 4 chronic kidney disease, or unspecified chronic kidney disease (principal); I50.31 Acute diastolic (congestive) heart failure; J44.0 Chronic obstructive pulmonary disease with (acute) lower respiratory infection; J44.1 Chronic obstructive pulmonary disease with (acute) exacerbation; N17.9 Acute kidney failure, unspecified; I27.2 Other secondary pulmonary hypertension; I70.213 Atherosclerosis of native arteries of extremities with intermittent claudication, bilateral legs; E78.5 Hyperlipidemia, unspecified; J20.9 Acute bronchitis, unspecified; E11.21 Type 2 diabetes mellitus with diabetic nephropathy; E11.40 Type 2 diabetes mellitus with diabetic neuropathy, unspecified; J45.909 Unspecified asthma, uncomplicated; M19.90 Unspecified osteoarthritis, unspecified site; Z66 Do not resuscitate; E11.51 Type 2 diabetes mellitus with diabetic peripheral angiopathy without gangrene; E11.22 Type 2 diabetes mellitus with diabetic chronic kidney disease; N18.3 Chronic kidney disease, stage 3 (moderate); D63.1 Anemia in chronic kidney disease; Z98.49 Cataract extraction status, unspecified eye; Z86.73 Personal history of transient ischemic attack (TIA), and cerebral infarction without residual deficits; Z79.82 Long term (current) use of aspirin; Z79.4 Long term (current) use of insulin; Z79.02 Long term (current) use of antithrombotics/antiplatelets; Z79.899 Other long term (current) drug therapy; Z90.49 Acquired absence of other specified parts of digestive tract; Z90.710 Acquired absence of both cervix and uterus; Z82.49 Family history of ischemic heart disease and other diseases of the circulatory system; Z83.3 Family history of diabetes mellitus
CPT/HCPCS: 36415; 71020; 71275; 80053; 80061; 82550; 82553; 82962; 83036; 83735; 83880; 84443; 84484; 85025; 85379; 93005; 93010; 93306; 93925; 96374; 99291; J1650; J1815; J1940; J3490; S0028

== ENCOUNTER 2016-06-20 14:47 | Observation (INO) | payer SELFPAY ==
--- NOTE | 2016-06-20 15:38 | ER Document Report ---
ED Dizziness/Weakness - General Chief Complaint: Weakness Stated Complaint: WEAKNESS Notes: Patient had an episode this afternoon when she couldn't walk or talk correctly. She's actually been having spells like this over the last week. Today, however, was different in that she had a shaking episode and slipped out of her 's arms onto the floor, although were not sure whether she actually went unconscious. While she was shaking, she was noted to be awake and not unconscious so I don't think it was a seizure. Patient says that she felt her whole body was shaking and her seems to confirm that. She's had slurring of her speech for the past couple of days as well as a headache. Patient reports that she has a history of having had 3 strokes about 12 years ago, but none since then. She's currently on aspirin daily and Plavix. TRAVEL OUTSIDE OF THE [place] IN LAST 30 DAYS: No - Related Data Allergies/Adverse Reactions: Sulfa (Sulfonamide Antibiotics) Allergy (Intermediate, Verified 06/20/16 17:24) Hives Past Medical History - Social History Smoking Status: Unknown if Ever Smoked Cigarette use (# per day): No Frequency of alcohol use: None Family History: Reviewed & Not Pertinent - Past Medical History Cardiac Medical History: Reports: Hx Hypertension Denies: Hx Heart Attack Pulmonary Medical History: Reports: Hx Asthma, Hx COPD Neurological Medical History: Reports: Hx Cerebrovascular Accident - X 3 RESIDULE EFFECTS RESOLVED, DIFFICULTY WALKING. Denies: Hx Seizures Endocrine Medical History: Reports: Hx Diabetes Mellitus Type 2 - with neuropathy GI Medical History: Denies: Hx Hepatitis, Hx Hiatal Hernia, Hx Ulcer Musculoskeltal Medical History: Reports Hx Arthritis Infectious Medical History: Denies: Hx Hepatitis Past Surgical History: Reports: Hx Cholecystectomy, Hx Hysterectomy, Hx Tubal Ligation, Other - cataract surgery - Immunizations Hx Diphtheria, Pertussis, Tetanus Vaccination: No Review of Systems - Review of Systems Notes: REVIEW OF SYSTEMS: CONSTITUTIONAL : Denies fever. EENT: Denies eye, ear, nose or mouth or throat pain or other symptoms. CARDIOVASCULAR: Denies chest pain. RESPIRATORY: Denies cough, chest congestion, or shortness of breath. GASTROINTESTINAL: Denies abdominal pain or nausea, vomiting, but has had some diarrhea. GENITOURINARY: Denies difficulty or painful urinating, urinary frequency, blood in urine. MUSCULOSKELETAL: Denies back or neck pain. Denies joint pain or swelling. Says she has carpal tunnel syndrome. SKIN: Denies rash or skin lesions. NEUROLOGICAL: Denies LOC or altered mental status. See history of present illness. Acknowledges headache. Denies sensory loss. ALL OTHER SYSTEMS REVIEWED AND NEGATIVE. Physical Exam - Vital signs Vitals: Resp 22 H 06/20/16 15:11 Interpretation: Normal - Notes Notes: PHYSICAL EXAMINATION: GENERAL: Well-appearing, in no acute distress. Vital signs essentially normal. HEAD: Atraumatic, normocephalic. EYES: Pupils equal round and reactive to light, extraocular movements intact. 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 ENT: oropharynx clear without exudates. Moist mucous membranes. NECK: Normal range of motion, supple. LUNGS: Breath sounds clear and equal bilaterally. HEART: Regular rate and rhythm without murmurs. ABDOMEN: Soft, nontender. No guarding or rebound. BACK: No tenderness throughout entire back. EXTREMITIES: Normal range of motion without pain. NEUROLOGICAL: and patient say patient's speech is slurred. However, it doesn't sound slurred, but rather, just missed pronunciation of words. Almost sounds factitial. Normal sensory, motor, and reflex exams. Awake, alert , and oriented x3. We are able to get the patient to stand up and walk around her bed. She is a slight bit unsteady on her feet, but can walk without assistance. PSYCH: Normal mood, normal affect. Anxious SKIN: Warm, dry, no rashes. Course - Re-evaluation Re-evalutation: 06/20/16 18:21 Patient's condition has improved. Her speech is much more audible and understandable. I'm not sure how much of this is real medical disease versus a functional disorder. I've contacted the hospitalist to admit the patient for further evaluation. 06/20/16 18:22 Patient's labs show some renal insufficiency with an elevated potassium and other renal function studies. A couple of her liver enzymes are very slightly elevated, as well. - Vital Signs Vital signs: Temp Pulse Resp BP Pulse Ox 12 142/88 H 97 06/20/16 17:01 06/20/16 17:01 06/20/16 17:01 - Laboratory Result Diagrams: 06/20/16 15:26 05/01/17 15:26 Laboratory results interpreted by me: 06/20/16 06/20/16 15:26 15:26 RDW 14.8 H Potassium 5.9 H Carbon Dioxide 21 L BUN 30 H Creatinine 1.89 H Est GFR ( Amer) 32 L Est GFR (Non-Af Amer) 26 L Glucose 306 H Direct Bilirubin 0.5 H AST 48 H Alkaline Phosphatase 148 H Creatine Kinase 218 H - Diagnostic Test Radiology reviewed: Image reviewed, Reports reviewed - CT scan of the patient's brain reveals findings of decreased attenuation in the inferior aspect of each hemisphere of the cerebellum. These findings could be consistent with old strokes. Otherwise, no specific findings on the CT scan. Radiology results interpreted by sc: 06/20/16 18:26 Chest x-ray shows no acute infiltrates or disease. - EKG Interpretation by De EKG shows normal: Sinus rhythm Rate: Normal Rhythm: NSR - Rate of 80 Additional EKG results interpreted by sc: 06/20/16 18:27 EKG is normal. Discharge - Discharge Clinical Impression: TIA (transient ischemic attack) Qualifiers: Transient cerebral ischemia type: unspecified Qualified Code(s): G45.9 - Transient cerebral ischemic attack, unspecified Disposition: ADMITTED OBSERVATION Admitting Provider: Hospitalist Unit Admitted: IMCU Referrals: RANJIT JUAREZ MD [Primary Care Provider] - Follow up as needed
[2016-06-20 15:39] LABS: ABSOLUTE EOSINOPHILS # (AUTO) 0.1 10^3/uL (0.0-0.6); ABSOLUTE LYMPHOCYTES (AUTO) 1.6 10^3/uL (0.5-4.7); ABSOLUTE MONOCYTES (AUTO) 0.5 10^3/uL (0.1-1.4); ABSOLUTE NEUT (AUTO) 4.7 10^3/uL (1.7-8.2); BASOPHILS % (AUTO) 0.5 % (0-2); EOSINOPHILS % (AUTO) 1.3 % (0-6); HEMATOCRIT 37.3 % (36.0-47.0); HEMOGLOBIN 12.2 g/dL (12.0-15.5); HGB HCT DIFFERENCE -0.7; LYMPHOCYTES % (AUTO) 23.3 % (13-45); MEAN CORPUSCULAR HEMOGLOBIN 28.3 pg (27.0-33.4); MEAN CORPUSCULAR HGB CONC 32.8 g/dL (32.0-36.0); MEAN CORPUSCULAR VOLUME 86 fl (80-97); MONOCYTES % (AUTO) 6.6 % (3-13); RED BLOOD COUNT 4.33 10^6/uL (3.72-5.28); RED CELL DISTRIBUTION WIDTH 14.8 % (11.5-14.0); SEGMENTED NEUTROPHILS % (AUTO) 68.3 % (42-78); WHITE BLOOD COUNT 6.9 10^3/uL (4.0-10.5)
[2016-06-20 15:45] LABS: PROTHROMBIN TIME 13.5 SEC (11.4-15.4)
[2016-06-20 15:46] LABS: PARTIAL THROMBOPLASTIN TIME 28.7 SEC (23.5-35.8)
[2016-06-20 16:00] LABS: ALANINE AMINOTRANSFERASE 31 U/L (9-52); ALBUMIN 4.1 g/dL (3.5-5.0); ALKALINE PHOSPHATASE 148 U/L (38-126); ANION GAP 14 (5-19); ASPARTATE AMINO TRANSFERASE 48 U/L (14-36); BILIRUBIN,DIRECT 0.5 mg/dL (0.0-0.4); BILIRUBIN,TOTAL 0.9 mg/dL (0.2-1.3); BLOOD UREA NITROGEN 30 mg/dL (7-20); CALCIUM 9.4 mg/dL (8.4-10.2); CARBON DIOXIDE 21 mmol/L (22-30); CHLORIDE 106 mmol/L (98-107); CREATINE KINASE 218 U/L (30-135); CREATININE RESULT 1.89 mg/dL (0.52-1.25); GLUCOSE 306 mg/dL (75-110); POTASSIUM 5.9 mmol/L (3.6-5.0); SODIUM 141.1 mmol/L (137-145); TOTAL PROTEIN 7.9 g/dL (6.3-8.2)
[2016-06-20 16:12] LABS: CREATINE KINASE MB 0.75 ng/mL (<4.55)
[2016-06-20 16:17] LABS: TROPONIN I < 0.012 ng/mL
--- NOTE | 2016-06-20 18:20 | EKG REPORT ---
SEVERITY:- ABNORMAL ECG - SINUS RHYTHM BORDERLINE R WAVE PROGRESSION, ANTERIOR LEADS NONSPECIFIC ST CHANGES, DIFFUSE. : Confirmed by: Shabbir Sy MD 20-Jun-2016 18:19:04
[2016-06-20] MEDS ORDERED: ACETAMINOPHEN 325 MG TABLET PO PRN (18:46)
[2016-06-20] MEDS ORDERED: IPRATROPIUM/ALBUTEROL 0.5-2.5 MG/3 ML AMPUL NEB PRN (18:46)
[2016-06-20] MEDS ORDERED: DEXTROSE 50%-WATER 25 GM/50 ML DISP.SYRIN IV PRN ×2 (18:50)
[2016-06-20] MEDS ORDERED: GLUCAGON,HUMAN RECOMB 1 MG INJ IM PRN (18:50)
[2016-06-20] MEDS ORDERED: INSULIN LISPRO 100 UNIT/ML 3 ML VIAL SUBCUT PRN (18:50)
[2016-06-20] MEDS ORDERED: DEXTROSE 40% GEL 15 GM TUBE PO PRN ×2 (18:50)
[2016-06-20] MEDS ORDERED: ALBUTEROL SULFATE HFA (90 MCG/PUFF) 200 PUFF/8.5 GM MDI IH PRN (18:51)
--- NOTE | 2016-06-20 19:08 | PDOC H&P ---
History of Present Illness Admission Date/PCP: RANJIT JUAREZ MD Patient complains of: Difficulty walking secondary to weakness. History of Present Illness: VAMSHI DOUGHERTY is a 70 year old female who presents with a two-week history of intermittent problems with imbalance. She's had problems walking and reports she walked about 15 feet and begins to feel lightheaded and wobbly. She has actually stopped the ground and lost consciousness and had slurred speech at that time. The patient denies having any seizure activity. These have been witnessed by her who is at the bedside. She has a history of having CVA in the past however the time my exam I checked orthostatic blood pressures and her blood pressure went from 115 systolic lying down to 62 standing up. This did reproduce some of her symptoms. She is on multiple antihypertensives and she is also diabetic and has no evidence for autonomic insufficiency in the form of peripheral neuropathy. Patient's head CT shows no acute event. 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 Neurological Medical History: Denies: Seizures Endocrine Medical History: Reports: Diabetes Mellitus Type 2 - with neuropathy Renal/ Medical History: Reports: None Malignancy Medical History: Reports: None GI Medical History: Reports: None Musculoskeltal Medical History: Reports: Arthritis Skin Medical History: Reports: None Psychiatric Medical History: Reports: None Hematology: Denies: Anemia Past Surgical History Past Surgical History: Reports: Cholecystectomy, Hysterectomy, Tubal Ligation, Other - cataract surgery Social History Information Source: Patient Lives with: Spouse/Significant other Smoking Status: Never Smoker Frequency of Alcohol Use: None Hx Recreational Drug Use: No Drugs: None Hx Prescription Drug Abuse: No - Advance Directive Resuscitation Status: Full Code Surrogate healthcare decision maker:: Her Family History Family History: Mother at age 73 with coronary artery disease. Father at age 53 with coronary artery disease. Parental Family History Reviewed: Yes Children Family History Reviewed: No Sibling(s) Family History Reviewed.: No Medication/Allergy Home Medications: Gabapentin [Neurontin 300 mg Capsule] 800 mg PO DAILY 06/29/12 Glipizide [Glucotrol Xl] 10 mg PO BID 06/29/12 Tramadol HCl [Ultram 50 mg Tablet] 50 mg PO TID 02/05/14 Albuterol Sulfate [Proair HFA Inhalation Aerosol 8.5 gm MDI] 2 puff IH Q4HP PRN #1 hfa.aer.ad 02/26/16 Atorvastatin Calcium [Lipitor 40 mg Tablet] 40 mg PO QHS #30 tablet 02/26/16 Carvedilol [Coreg 12.5 mg Tablet] 12.5 mg PO Q12 #60 tablet 02/26/16 Clopidogrel Bisulfate [Plavix 75 mg Tablet] 75 mg PO DAILY #30 tablet 02/26/16 Furosemide [Lasix 20 mg Tablet] 20 mg PO QAM #30 tablet 02/26/16 Lisinopril [Prinivil] 20 mg PO DAILY #30 tablet 02/26/16 Sitagliptin Phos/Metformin HCl [Janumet 50-1,000 mg Tablet] 50 mg PO DAILY 02/25 Allergies/Adverse Reactions: Sulfa (Sulfonamide Antibiotics) Allergy (Intermediate, Verified 06/20/16 17:24) Hives Review of Systems Constitutional: ABSENT: chills, fever(s), headache(s), weight gain, weight loss Eyes: ABSENT: visual disturbances Cardiovascular: ABSENT: chest pain, dyspnea on exertion, edema, orthropnea, palpitations Respiratory: ABSENT: cough, hemoptysis Gastrointestinal: ABSENT: abdominal pain, constipation, diarrhea, hematemesis, hematochezia, nausea, vomiting Genitourinary: ABSENT: dysuria, hematuria Musculoskeletal: ABSENT: joint swelling Integumentary: ABSENT: rash, wounds Neurological: PRESENT: abnormal speech, dizziness, lack of coordination, syncope - Patient has felt dizziness had some near syncopal episodes.. ABSENT: focal weakness Psychiatric: ABSENT: anxiety, depression Endocrine: ABSENT: cold intolerance, heat intolerance, polydipsia, polyuria Physical Exam Vital Signs: Temp Pulse Resp BP Pulse Ox 12 142/88 H 97 06/20/16 17:01 06/20/16 17:01 06/20/16 17:01 General appearance: PRESENT: no acute distress, well-developed, well-nourished Head exam: PRESENT: atraumatic, normocephalic Eye exam: PRESENT: conjunctiva pink, EOMI, PERRLA. ABSENT: scleral icterus Ear exam: PRESENT: normal external ear exam Mouth exam: PRESENT: moist, tongue midline Neck exam: ABSENT: carotid bruit, JVD, lymphadenopathy, thyromegaly Respiratory exam: PRESENT: clear to auscultation gita. ABSENT: rales, rhonchi, wheezes Cardiovascular exam: PRESENT: RRR. ABSENT: diastolic murmur, rubs, systolic murmur Pulses: PRESENT: normal dorsalis pedis pul Vascular exam: PRESENT: normal capillary refill GI/Abdominal exam: PRESENT: normal bowel sounds, soft. ABSENT: distended, guarding, mass, organolmegaly, rebound, tenderness Rectal exam: PRESENT: deferred Extremities exam: ABSENT: calf tenderness, clubbing, pedal edema Neurological exam: PRESENT: alert, awake, oriented to person, oriented to place , oriented to time, oriented to situation, CN II-XII grossly intact. ABSENT: motor sensory deficit Psychiatric exam: PRESENT: appropriate affect, normal mood Skin exam: PRESENT: dry, intact, warm. ABSENT: cyanosis, rash Results Laboratory Results: 06/20/16 15:26 06/20/16 15:26 06/20/16 06/20/16 15:26 15:26 WBC 6.9 RBC 4.33 Hgb 12.2 Hct 37.3 MCV 86 MCH 28.3 MCHC 32.8 RDW 14.8 H Plt Count 225 Seg Neutrophils % 68.3 Lymphocytes % 23.3 Monocytes % 6.6 Eosinophils % 1.3 Basophils % 0.5 Absolute Neutrophils 4.7 Absolute Lymphocytes 1.6 Absolute Monocytes 0.5 Absolute Eosinophils 0.1 Absolute Basophils 0.0 Sodium 141.1 Potassium 5.9 H Chloride 106 Carbon Dioxide 21 L Anion Gap 14 BUN 30 H Creatinine 1.89 H Est GFR ( Amer) 32 L Est GFR (Non-Af Amer) 26 L Glucose 306 H Calcium 9.4 Total Bilirubin 0.9 AST 48 H ALT 31 Alkaline Phosphatase 148 H Total Protein 7.9 Albumin 4.1 06/20/16 06/20/16 15:26 15:26 Creatine Kinase 218 H CK-MB (CK-2) 0.75 Troponin I < 0.012 Impressions: Chest X-Ray 06/20/16 14:49 IMPRESSION: Chronic lung changes with no acute cardiopulmonary disease. Head CT 06/20/16 14:49 IMPRESSION: 1. There is no hemorrhage. 2. There is no evidence of acute cerebral stroke. 3. There are areas of decreased attenuation each cerebellar hemisphere suggesting the possibility of prior infarcts. Clinical and historical correlation recommended. MRI is recommended. Assessment & Plan - Diagnosis (1) Orthostatic hypotension Is this a current diagnosis for this admission?: YesPlan: The patient was initially thought to possibly have a TIA given her problems with balance. I checked her blood pressures and her systolic went from 1:15 down to 60 when standing. She is on multiple agents including lisinopril, Norvasc, Coreg. I have held all of her antihypertensives and would consider starting back on her Coreg if orthostatics improved. Patient most likely has autonomic insufficiency given her history of diabetes. (2) Accelerated essential hypertension Is this a current diagnosis for this admission?: YesPlan: The patient needs to have standing blood pressures and she is instructed to always get this checked standing when she is an outpatient. (3) CHF (congestive heart failure) Qualifiers: Congestive heart failure type: unspecified congestive heart failure type Is this a current diagnosis for this admission?: YesPlan: Patient has a history of diastolic dysfunction related to uncontrolled hypertension previously. She is euvolemic. (4) Claudication of both lower extremities Is this a current diagnosis for this admission?: YesPlan: Patient has a history of peripheral last disease has minimal claudication symptoms. Her difficulty walking most likely his blood pressure related and is not related to claudication. 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 (6) Hyperlipidemia Is this a current diagnosis for this admission?: Yes - Time Time Spent: 50 to 70 Minutes - Inpatient Certification Medical Necessity: Need Close Monitoring Due to Risk of Patient Decompensation - Plan Summary Plan Summary: Patient has orthostatic hypotension does not have any evidence for TIA or CVA. We'll hold off on giving IV fluids now she is on multiple blood pressure medications. She does have a history of diastolic dysfunction. Would restart Coreg of her blood pressure will tolerate it.
[2016-06-20] MEDS: ATORVASTATIN CALCIUM 40 MG TABLET PO SCH (23:23)
[2016-06-20] MEDS: CARVEDILOL 12.5 MG TABLET PO SCH (23:23)
[2016-06-21 07:31] LABS: HEMOGLOBIN 11.4 g/dL (12.0-15.5); HGB HCT DIFFERENCE 0.2; MEAN CORPUSCULAR HEMOGLOBIN 28.6 pg (27.0-33.4); MEAN CORPUSCULAR HGB CONC 33.6 g/dL (32.0-36.0); MEAN CORPUSCULAR VOLUME 85 fl (80-97); RED BLOOD COUNT 3.98 10^6/uL (3.72-5.28); RED CELL DISTRIBUTION WIDTH 15.1 % (11.5-14.0); WHITE BLOOD COUNT 8.6 10^3/uL (4.0-10.5)
[2016-06-21 07:53] LABS: ANION GAP 12 (5-19); BLOOD UREA NITROGEN 31 mg/dL (7-20); CALCIUM 9.2 mg/dL (8.4-10.2); CARBON DIOXIDE 21 mmol/L (22-30); CHLORIDE 112 mmol/L (98-107); CREATININE RESULT 1.83 mg/dL (0.52-1.25); GLUCOSE 83 mg/dL (75-110); POTASSIUM 5.1 mmol/L (3.6-5.0); SODIUM 145.3 mmol/L (137-145)
[2016-06-21] MEDS ORDERED: ENOXAPARIN SODIUM INJ 40 MG/0.4 ML DISP.SYRIN SUBCUT SCH (08:00)
[2016-06-21] MEDS: CLOPIDOGREL BISULFATE 75 MG TABLET PO SCH (09:17)
[2016-06-21] MEDS: ENOXAPARIN SODIUM INJ 30 MG/0.3 ML DISP.SYRIN SUBCUT SCH (09:18)
[2016-06-21] MEDS ORDERED: SODIUM POLYSTYRENE SULFONATE 15 GM/60 ML PO ONE (11:01)
[2016-06-21] MEDS ORDERED: TRAMADOL HCL 50 MG TABLET PO PRN (11:02)
--- NOTE | 2016-06-21 11:07 | PDOC PROGRESS REPORT ---
Subjective Progress Note for:: 06/21/16 Physical Exam Vital Signs: Temp Pulse Resp BP Pulse Ox 97.8 F 77 20 79/35 L 100 06/21/16 08:24 06/21/16 08:24 06/21/16 08:24 06/21/16 08:28 06/21/16 08:24 Intake & Output 06/20/16 06/21/16 06/22/16 06:59 06:59 06:59 Intake Total 20 Balance 20 Weight 65.6 kg General appearance: PRESENT: no acute distress, cooperative Head exam: PRESENT: normocephalic Eye exam: PRESENT: EOMI Mouth exam: PRESENT: moist, neck supple Neck exam: ABSENT: JVD Respiratory exam: PRESENT: clear to auscultation gita. ABSENT: rhonchi, wheezes Cardiovascular exam: PRESENT: RRR. ABSENT: gallop GI/Abdominal exam: PRESENT: normal bowel sounds, soft. ABSENT: distended, tenderness Extremities exam: ABSENT: pedal edema Neurological exam: PRESENT: alert, awake, oriented to situation Skin exam: PRESENT: dry, warm. ABSENT: cyanosis Results Laboratory Results: 06/21/16 06:57 06/21/16 06:57 06/20/16 06/21/16 06/21/16 22:38 06:57 06:57 WBC 8.6 RBC 3.98 Hgb 11.4 L Hct 34.0 L MCV 85 MCH 28.6 MCHC 33.6 RDW 15.1 H Plt Count 209 Sodium 145.3 H Potassium 5.5 H 5.1 H Chloride 112 H Carbon Dioxide 21 L Anion Gap 12 BUN 31 H Creatinine 1.83 H Est GFR ( Amer) 33 L Est GFR (Non-Af Amer) 27 L Glucose 83 Calcium 9.2 Magnesium 2.0 Impressions: Chest X-Ray 06/20/16 14:49 IMPRESSION: Chronic lung changes with no acute cardiopulmonary disease. Head CT 06/20/16 14:49 IMPRESSION: 1. There is no hemorrhage. 2. There is no evidence of acute cerebral stroke. 3. There are areas of decreased attenuation each cerebellar hemisphere suggesting the possibility of prior infarcts. Clinical and historical correlation recommended. MRI is recommended. Assessment & Plan - Diagnosis (1) Acute renal failure Qualifiers: Acute renal failure type: unspecified Qualified Code(s): N17.9 - Acute kidney failure, unspecified Is this a current diagnosis for this admission?: Yes (2) Hyperkalemia Is this a current diagnosis for this admission?: Yes (3) Orthostatic hypotension Is this a current diagnosis for this admission?: Yes (4) Accelerated essential hypertension Is this a current diagnosis for this admission?: Yes (5) CHF (congestive heart failure) Qualifiers: Congestive heart failure type: unspecified congestive heart failure type Congestive heart failure chronicity: chronic Qualified Code(s): I50.9 - Heart failure, unspecified Is this a current diagnosis for this admission?: Yes (6) COPD (chronic obstructive pulmonary disease) with acute bronchitis Is this a current diagnosis for this admission?: Yes (7) Diabetes Qualifiers: Diabetes mellitus type: type 2 Diabetes mellitus complication status: with unspecified complications Diabetes mellitus superintendent terminal insulin use: without superintendent terminal use Qualified Code(s): E11.8 - Type 2 diabetes mellitus with unspecified complications; Z79.4 - senior care (current) use of insulin Is this a current diagnosis for this admission?: Yes (8) Hyperlipidemia Qualifiers: Hyperlipidemia type: unspecified Qualified Code(s): E78.5 - Hyperlipidemia, unspecified Is this a current diagnosis for this admission?: Yes (9) History of stroke Is this a current diagnosis for this admission?: Yes - Time Time Spent with patient: 25-34 minutes - Plan Summary Plan Summary: We will re-start hydrating the patient. We will continue Coreg and hold other antihypertensive medication at this time. Give Kayexalate. Recheck potassium and creatinine in the morning. Begin physical therapy.
[2016-06-21] MEDS: 1/2 NORMAL SALINE 1,000 ML IV PRN ×2 (11:29→20:57)
[2016-06-21] MEDS: CARVEDILOL 12.5 MG TABLET PO SCH ×2 (11:30→21:32)
[2016-06-21] MEDS: GABAPENTIN 400 MG CAPSULE PO SCH ×2 (13:29→21:32)
[2016-06-21] MEDS: ATORVASTATIN CALCIUM 40 MG TABLET PO SCH (21:32)
[2016-06-22] MEDS: GABAPENTIN 400 MG CAPSULE PO SCH (05:23)
[2016-06-22 05:52] LABS: ANION GAP 15 (5-19); BLOOD UREA NITROGEN 25 mg/dL (7-20); CARBON DIOXIDE 20 mmol/L (22-30); CHLORIDE 110 mmol/L (98-107); CREATININE RESULT 1.48 mg/dL (0.52-1.25); GLUCOSE 122 mg/dL (75-110); SODIUM 144.8 mmol/L (137-145)
[2016-06-22 08:42] VITALS: BP 102/62
[2016-06-22] MEDS: CLOPIDOGREL BISULFATE 75 MG TABLET PO SCH (09:05)
[2016-06-22] MEDS: CARVEDILOL 12.5 MG TABLET PO SCH (09:05)
[2016-06-22] MEDS: ENOXAPARIN SODIUM INJ 30 MG/0.3 ML DISP.SYRIN SUBCUT SCH (09:05)
[2016-06-22] MEDS: 1/2 NORMAL SALINE 1,000 ML IV PRN (09:05)
--- NOTE | 2016-06-22 11:39 | PDOC DISCHARGE SUMMARY ---
General - Admit/Disc Date/PCP Admission Date/Primary Care Provider: 06/20/16 18:46 RANJIT JUAREZ MD Discharge Date: 06/22/16 - Discharge Diagnosis (1) Acute renal failure Is this a current diagnosis for this admission?: Yes (2) Hyperkalemia Is this a current diagnosis for this admission?: Yes (3) Orthostatic hypotension Is this a current diagnosis for this admission?: Yes (4) Accelerated essential hypertension Is this a current diagnosis for this admission?: Yes (5) CHF (congestive heart failure) Is this a current diagnosis for this admission?: Yes (6) COPD (chronic obstructive pulmonary disease) with acute bronchitis Is this a current diagnosis for this admission?: Yes (7) Diabetes Is this a current diagnosis for this admission?: Yes (8) Hyperlipidemia Is this a current diagnosis for this admission?: Yes (9) History of stroke Is this a current diagnosis for this admission?: Yes - Additional Information Resuscitation Status: Full Code Discharge Diet: Diabetic - low-fat, no concentrated sweets Discharge Activity: Activity As Tolerated, Balance Activity w/Rest, Slowly Increase Activity Home Medications: Albuterol Sulfate [Proair Respiclick] 1 puff IH Q4HP PRN 06/20/16 Aspirin [Aspirin EC] 81 mg PO DAILY 06/20/16 Atorvastatin Calcium [Lipitor 40 mg Tablet] 40 mg PO QHS 06/20/16 Carvedilol [Coreg 25 mg Tablet] 25 mg PO Q12 06/20/16 Clopidogrel Bisulfate [Plavix 75 mg Tablet] 75 mg PO DAILY 06/20/16 Gabapentin [Neurontin] 800 mg PO Q8 06/20/16 Glipizide [Glucotrol 10 mg Tablet] 10 mg PO Q12 06/20/16 Meclizine HCl [Antivert 25 mg Tablet] 25 mg PO Q8HP PRN 06/20/16 Nitroglycerin [Nitrostat 0.4 mg (1/150 Gr) Tabs 25/Bottle] 1 tab SL Q5MP PRN MDD 3 TABS 06/20/16 Tramadol HCl [Ultram 50 mg Tablet] 50 mg PO Q8HP PRN 06/20/16 Midodrine HCl [Proamatine 5 Mg Tablet] 5 mg PO TID #90 tablet 06/22/16 Additional Information: 1. Wear compression stockings. Increase oral fluid intake. History of Present Illness Patient complains of: Syncopal episode History of Present Illness: VAMSHI DOUGHERTY is a 70 year old female, with history of diabetes and hypertension as well as CHF and COPD brought to the hospital because of lightheadedness and dizziness especially on standing. It was reported likewise that on ambulation the patient was having imbalance and feeling like passing out. The patient presents with the emergency room, found to be orthostatic with an elevated creatinine. Patient reports this occurred when she was started on cardiac medications and was recently decreased but the symptoms persist. She was referred for admission for questionable TIA symptoms. For details please refer to history and physical examination performed by the admitting physician. Hospital Course Hospital Course: The patient was admitted to the stepdown unit. The patient was found to be orthostatic. Her antihypertensive medications were held including diuretics, MONIQUE inhibitor, and calcium channel cece. She was maintained on her beta cece Coreg. Patient was found to have elevated potassium and likewise elevated creatinine. Her potassium eventually normalized with Kayexalate, and creatinine improved with hydration. Despite holding her medications and creatinine improving she remains orthostatic. She however felt significantly improved compared to her baseline admission in terms of weakness. She was to be discharged and continue hydration at home. Patient likely has underlying autonomic neuropathy, she was educated about positional maneuvers, wearing compression stockings, and likewise trial of midodrine see if her symptoms would improve. She was advised to hold her Norvasc and diuretics, as well as the MONIQUE inhibitor pending reevaluation outpatient by her primary care physician or radio dispatcher. The rest of the hospital stay is unremarkable. vacation planner was consulted for home health services as well. Physical Exam Vital Signs: Temp Pulse Resp BP Pulse Ox 97.8 F 73 18 185/85 H 100 06/22/16 07:47 06/22/16 07:47 06/22/16 07:47 06/22/16 07:47 06/22/16 07:47 Intake & Output 06/21/16 06/22/16 06/23/16 06:59 06:59 06:59 Intake Total 20 3690 Balance 20 3690 Weight 65.6 kg 66.9 kg General appearance: PRESENT: no acute distress, cooperative Eye exam: PRESENT: EOMI Mouth exam: PRESENT: moist, neck supple Neck exam: ABSENT: JVD Respiratory exam: PRESENT: clear to auscultation gita. ABSENT: rhonchi, wheezes Cardiovascular exam: PRESENT: RRR. ABSENT: gallop GI/Abdominal exam: PRESENT: normal bowel sounds, soft. ABSENT: distended, tenderness Extremities exam: ABSENT: pedal edema Neurological exam: PRESENT: alert, awake, oriented to person, oriented to place , oriented to time, oriented to situation Skin exam: PRESENT: dry, warm. ABSENT: cyanosis Results Laboratory Results: 06/21/16 06:57 06/22/16 04:20 06/22/16 04:20 Sodium 144.8 Potassium 4.0 D Chloride 110 H Carbon Dioxide 20 L Anion Gap 15 BUN 25 H Creatinine 1.48 H Est GFR ( Amer) 42 L Est GFR (Non-Af Amer) 35 L Glucose 122 H Calcium 9.0 Impressions: Chest X-Ray 06/20/16 14:49 IMPRESSION: Chronic lung changes with no acute cardiopulmonary disease. Head CT 06/20/16 14:49 IMPRESSION: 1. There is no hemorrhage. 2. There is no evidence of acute cerebral stroke. 3. There are areas of decreased attenuation each cerebellar hemisphere suggesting the possibility of prior infarcts. Clinical and historical correlation recommended. MRI is recommended. Qualifiers PATEINT BEING DISCHARGED WITH ANY OF THE FOLLOWING DIAGNOSIS?: No Plan Discharge Plan: Follow-up with primary care physician in one week. Follow-up with primary radio dispatcher in 3-5 days. Time Spent: Less than 30 Minutes
[2016-06-22] MEDS ORDERED: CARVEDILOL 12.5 MG TABLET PO SCH (22:00)
== END 2016-06-22 13:31 | disposition home health service (06) ==
LOC: ER 14:47 → EH 18:46 → 3N 06-21 01:30
PROVIDERS: ADMIT Internal Medicine; ATTEND Internal Medicine
DX: N17.9 Acute kidney failure, unspecified (principal); E87.5 Hyperkalemia; I95.1 Orthostatic hypotension; I11.0 Hypertensive heart disease with heart failure; I50.9 Heart failure, unspecified; J44.9 Chronic obstructive pulmonary disease, unspecified; J20.9 Acute bronchitis, unspecified; E11.8 Type 2 diabetes mellitus with unspecified complications; E78.5 Hyperlipidemia, unspecified; I73.9 Peripheral vascular disease, unspecified; I69.398 Other sequelae of cerebral infarction; R26.2 Difficulty in walking, not elsewhere classified; R51 Headache; H54.40 Blindness, one eye, unspecified eye; R47.89 Other speech disturbances; R74.8 Abnormal levels of other serum enzymes; R19.7 Diarrhea, unspecified; G56.00 Carpal tunnel syndrome, unspecified upper limb; Z79.82 Long term (current) use of aspirin; Z79.02 Long term (current) use of antithrombotics/antiplatelets; Z79.84 Long term (current) use of oral hypoglycemic drugs; Z79.899 Other long term (current) drug therapy; Z90.49 Acquired absence of other specified parts of digestive tract; Z82.49 Family history of ischemic heart disease and other diseases of the circulatory system
CPT/HCPCS: 93005; 99285; 36415 ×3; 82553; 82962 ×2; 82550; 83735; 84132; 85025; 85027; 85610; 85730; 80048 ×2; 80053; 84484; 71010; 70450; 93010; G0378 ×4; J1815; J3490; J1650 ×2

== ENCOUNTER 2016-07-10 20:51 | Emergency (ER) | payer SELFPAY ==
[2016-07-10] MEDS ORDERED: MAG HYDROX/AL HYDROX/SIMETH SUSP 30 ML UDCUP PO ONE (21:33)
[2016-07-10] MEDS ORDERED: METOCLOPRAMIDE HCL ORAL SOLN 10 MG/10 ML UDCUP PO ONE (21:33)
[2016-07-10] MEDS ORDERED: LIDOCAINE 2% VISCOUS SOLN 20 ML UDCUP PO ONE (21:33)
[2016-07-10 21:46] LABS: ALANINE AMINOTRANSFERASE 31 U/L (9-52); ALBUMIN 3.2 g/dL (3.5-5.0); ALKALINE PHOSPHATASE 132 U/L (38-126); ANION GAP 10 (5-19); ASPARTATE AMINO TRANSFERASE 22 U/L (14-36); BILIRUBIN,DIRECT 0.3 mg/dL (0.0-0.4); BILIRUBIN,TOTAL 0.5 mg/dL (0.2-1.3); BLOOD UREA NITROGEN 21 mg/dL (7-20); CALCIUM 8.8 mg/dL (8.4-10.2); CARBON DIOXIDE 19 mmol/L (22-30); CHLORIDE 111 mmol/L (98-107); CREATINE KINASE 213 U/L (30-135); CREATININE RESULT 1.63 mg/dL (0.52-1.25); GLUCOSE 167 mg/dL (75-110); POTASSIUM 4.4 mmol/L (3.6-5.0); SODIUM 140.3 mmol/L (137-145); TOTAL PROTEIN 6.3 g/dL (6.3-8.2)
--- NOTE | 2016-07-10 21:55 | ER Document Report ---
ED General - General Chief Complaint: Chest Pain Stated Complaint: CHEST PAIN Time Seen by Provider: 07/10/16 21:14 Mode of Arrival: Medic Information source: Patient TRAVEL OUTSIDE OF THE [place] IN LAST 30 DAYS: No - HPI Patient complains to provider of: chest pain Onset: This afternoon Onset/Duration: Persistent Quality of pain: Achy, Pressure Severity: Moderate Pain Level: 3 Associated symptoms: Chest pain, Shortness of breath Exacerbated by: Denies Relieved by: Denies Notes: Patient is a 70-year-old female with a history of CVA, CHF, hypertension, PVD, COPD, diabetes, who presents to the emergency room complaining of chest pain, she also complains of shortness of breath, however reports a history of COPD with intermittent shortness of breath previously, she reports she has been having some diarrhea, no nausea or vomiting, no fever or chills, denies any dysuria or hematuria, no sick contacts, no history of coronary artery disease - Related Data Allergies/Adverse Reactions: Sulfa (Sulfonamide Antibiotics) Allergy (Intermediate, Verified 06/20/16 17:24) Sheliaes Past Medical History - General Information source: Patient - Social History Smoking Status: Former Smoker Family History: Reviewed & Not Pertinent - Past Medical History Cardiac Medical History: Reports: Hx Congestive Heart Failure, Hx Hypertension, Hx Peripheral Vascular Disease Denies: Hx Heart Attack Pulmonary Medical History: Reports: Hx Asthma, Hx COPD Neurological Medical History: Reports: Hx Cerebrovascular Accident - X 3 RESIDULE EFFECTS RESOLVED, DIFFICULTY WALKING. Denies: Hx Seizures Endocrine Medical History: Reports: Hx Diabetes Mellitus Type 2 - with neuropathy GI Medical History: Denies: Hx Hepatitis, Hx Hiatal Hernia, Hx Ulcer Musculoskeltal Medical History: Reports Hx Arthritis Infectious Medical History: Denies: Hx Hepatitis Past Surgical History: Reports: Hx Cholecystectomy, Hx Hysterectomy, Hx Tubal Ligation, Other - cataract surgery - Immunizations Hx Diphtheria, Pertussis, Tetanus Vaccination: No Review of Systems - Review of Systems Constitutional: No symptoms reported EENT: No symptoms reported Cardiovascular: See HPI Respiratory: See HPI Gastrointestinal: See HPI Genitourinary: No symptoms reported Female Genitourinary: No symptoms reported Musculoskeletal: No symptoms reported Skin: No symptoms reported Hematologic/Lymphatic: No symptoms reported Neurological/Psychological: No symptoms reported -: Yes All other systems reviewed and negative Physical Exam - Vital signs Vitals: Resp BP 22 H 150/105 H 05/21/17 21:38 07/10/16 21:38 Interpretation: Normal - General General appearance: Appears well, Alert - HEENT Head: Normocephalic, Atraumatic Eyes: Normal Pupils: PERRL - Respiratory Respiratory status: No respiratory distress Chest status: Nontender Breath sounds: Wheezing Chest palpation: Normal - Cardiovascular Rhythm: Regular Heart sounds: Normal auscultation Murmur: No - Abdominal Inspection: Normal Distension: No distension Bowel sounds: Normal Tenderness: Tender - epigastric Organomegaly: No organomegaly - Back Back: Normal, Nontender - Extremities General upper extremity: Normal inspection, Nontender, Normal color, Normal ROM , Normal temperature General lower extremity: Normal inspection, Nontender, Normal color, Normal ROM , Normal temperature, Normal weight bearing. No: Armando's sign - Neurological Neuro grossly intact: Yes Cognition: Normal Orientation: AAOx4 [place] Coma Scale Eye Opening: Spontaneous [place] Coma Scale Verbal: Oriented Joel Coma Scale Motor: Obeys Commands Joel Coma Scale Total: 15 Speech: Normal Motor strength normal: LUE, RUE, LLE, RLE Sensory: Normal - Psychological Associated symptoms: Normal affect, Normal mood - Skin Skin Temperature: Warm Skin Moisture: Dry Skin Color: Normal Course - Re-evaluation Re-evalutation: 07/10/16 22:34 Patient with chest pain that started today associated with shortness of breath, multiple medical problems which are risk factors for heart disease, although she has no known coronary artery disease, patient with a troponin of 1.2, on reevaluation her chest pain is completely resolved, however she requires a higher level of care for likely NSTEMI, for [facility] was contacted for a patient Was discussed with cable respooler, Dr. Lowry, who graciously accepted patient for transfer, she requested that patient either receive Lovenox early placed on a heparin drip, patient does have an elevated creatinine, therefore a heparin drip will be started as opposed to lovenox 07/11/16 01:23 Patient is resting comfortably, she received a second dose of morphine and the IV heparin drip is now running, ambulance crew was in the emergency room to transport [facility] for higher level of care, care of a cable respooler, patient vital signs are stable, she is currently pain-free and stable for transport - Vital Signs Vital signs: Temp Pulse Resp BP Pulse Ox 98.2 F 23 H 131/91 H 96 07/10/16 22:01 07/10/16 22:01 07/10/16 22:01 07/10/16 22:01 - Laboratory Result Diagrams: 07/10/16 22:47 07/10/16 21:15 Laboratory results interpreted by me: 07/10/16 07/10/16 07/10/16 21:15 21:15 21:15 RBC Hgb Hct RDW APTT Chloride 111 H Carbon Dioxide 19 L BUN 21 H Creatinine 1.63 H Est GFR ( Amer) 38 L Est GFR (Non-Af Amer) 31 L Glucose 167 H Alkaline Phosphatase 132 H Creatine Kinase 213 H NT-Pro-B Natriuret Pep 51800 H Albumin 3.2 L Lipase 22.3 L 07/10/16 07/11/16 22:47 00:23 RBC 3.25 L Hgb 9.6 L Hct 28.6 L RDW 16.2 H APTT 111.1 H Chloride Carbon Dioxide BUN Creatinine Est GFR ( Amer) Est GFR (Non-Af Amer) Glucose Alkaline Phosphatase Creatine Kinase NT-Pro-B Natriuret Pep Albumin Lipase - Diagnostic Test Radiology reviewed: Image reviewed, Reports reviewed - EKG Interpretation by Me EKG shows normal: Sinus rhythm Rate: Normal Rhythm: NSR Critical Care Note - Critical Care Note Total time excluding time spent on procedures (mins): 35 Comments: Patient diagnosed with NSTEMI, and transferred to tertiary care center for higher level of care, time spent discussing this plan with patient and family members, as well as consultants at tertiary care center Discharge - Discharge Clinical Impression: NSTEMI (non-ST elevated myocardial infarction) Condition: Stable Disposition: [facility]
[2016-07-10 21:58] LABS: CREATINE KINASE MB 3.48 ng/mL (<4.55)
[2016-07-10 22:00] LABS: TROPONIN I 1.2 ng/mL
[2016-07-10] MEDS ORDERED: HEPARIN SOD (PORCINE) 1,000 UNIT/ML 10 ML VIAL IV ONE (22:31)
[2016-07-10] MEDS ORDERED: HEPARIN SODIUM,PORCINE/D5W 250 ML IV PRN (22:31)
[2016-07-10 23:05] LABS: ABSOLUTE EOSINOPHILS # (AUTO) 0.1 10^3/uL (0.0-0.6); ABSOLUTE MONOCYTES (AUTO) 0.4 10^3/uL (0.1-1.4); ABSOLUTE NEUT (AUTO) 4.7 10^3/uL (1.7-8.2); BASOPHILS % (AUTO) 0.5 % (0-2); EOSINOPHILS % (AUTO) 1.3 % (0-6); HEMATOCRIT 28.6 % (36.0-47.0); HEMOGLOBIN 9.6 g/dL (12.0-15.5); HGB HCT DIFFERENCE 0.2; LYMPHOCYTES % (AUTO) 16.3 % (13-45); MEAN CORPUSCULAR HEMOGLOBIN 29.5 pg (27.0-33.4); MEAN CORPUSCULAR HGB CONC 33.5 g/dL (32.0-36.0); MEAN CORPUSCULAR VOLUME 88 fl (80-97); MONOCYTES % (AUTO) 5.8 % (3-13); RED BLOOD COUNT 3.25 10^6/uL (3.72-5.28); RED CELL DISTRIBUTION WIDTH 16.2 % (11.5-14.0); SEGMENTED NEUTROPHILS % (AUTO) 76.1 % (42-78); WHITE BLOOD COUNT 6.2 10^3/uL (4.0-10.5)
[2016-07-11 00:36] LABS: PROTHROMBIN TIME 13.5 SEC (11.4-15.4)
[2016-07-11 00:38] LABS: PARTIAL THROMBOPLASTIN TIME 111.1 SEC (23.5-35.8)
[2016-07-11] MEDS ORDERED: MORPHINE SULFATE 10 MG/ML INJ IV ONE (00:49)
[2016-07-11 02:14] VITALS: BP 127/89
--- NOTE | 2016-07-11 08:58 | EKG REPORT ---
SEVERITY:- ABNORMAL ECG - SINUS RHYTHM CONSIDER ANTERIOR INFARCT BORDERLINE PROLONGED QT INTERVAL NONSPECIFIC ST-T CHANGES DIFFUSE : Confirmed by: Shabbir Sy MD 11-Jul-2016 08:57:30
== END 2016-07-11 01:10 | disposition short-term general hospital (02) ==
LOC: ER 20:51
DX: I21.4 Non-ST elevation (NSTEMI) myocardial infarction (principal); R07.9 Chest pain, unspecified; R06.02 Shortness of breath; R19.7 Diarrhea, unspecified; Z86.73 Personal history of transient ischemic attack (TIA), and cerebral infarction without residual deficits; I50.9 Heart failure, unspecified; I10 Essential (primary) hypertension; I73.9 Peripheral vascular disease, unspecified; J44.9 Chronic obstructive pulmonary disease, unspecified; E11.9 Type 2 diabetes mellitus without complications; Z87.891 Personal history of nicotine dependence
CPT/HCPCS: 93005; 96376; 99291; 96374; 96375; 36415; 87045; 89055; 87205; 82553; 82550; 83690; 85025; 85610; 85730; 82272; 80053; 84484; 87493 ×2; 83880; 71020; 93010; J1644 ×2; J3490; J2270

== ENCOUNTER 2017-04-03 10:56 | Emergency (ER) | payer MEDICARE ==
--- NOTE | 2017-04-03 11:29 | ER Document Report ---
ED Medical Screen (RME) - General Chief Complaint: Anemia Stated Complaint: LEG AND FEET SWELLING Time Seen by Provider: 04/03/17 11:27 Notes: pt has hx of copd/chf/ presents with leg swelling and sob TRAVEL OUTSIDE OF THE [place] IN LAST 30 DAYS: No - Related Data Allergies/Adverse Reactions: Sulfa (Sulfonamide Antibiotics) Allergy (Intermediate, Verified 06/20/16 17:24) Hives Past Medical History - Social History Chew tobacco use (# tins/day): No Frequency of alcohol use: None Drug Abuse: None - Past Medical History Cardiac Medical History: Reports: Hx Congestive Heart Failure, Hx Hypertension, Hx Peripheral Vascular Disease Denies: Hx Heart Attack Pulmonary Medical History: Reports: Hx Asthma, Hx COPD Neurological Medical History: Reports: Hx Cerebrovascular Accident - X 3 RESIDULE EFFECTS RESOLVED, DIFFICULTY WALKING. Denies: Hx Seizures Endocrine Medical History: Reports: Hx Diabetes Mellitus Type 2 - with neuropathy Renal/ Medical History: Denies: Hx Peritoneal Dialysis GI Medical History: Denies: Hx Hepatitis, Hx Hiatal Hernia, Hx Ulcer Musculoskeltal Medical History: Reports Hx Arthritis Infectious Medical History: Denies: Hx Hepatitis Past Surgical History: Reports: Hx Cholecystectomy, Hx Hysterectomy, Hx Tubal Ligation, Other - cataract surgery - Immunizations Hx Diphtheria, Pertussis, Tetanus Vaccination: No Physical Exam - Vital signs Vitals: Temp Pulse Resp BP Pulse Ox 97.8 F 80 16 141/84 H 90 L 04/03/17 11:20 04/03/17 11:20 04/03/17 11:20 04/03/17 11:20 04/03/17 11:20 Course - Vital Signs Vital signs: Temp Pulse Resp BP Pulse Ox 97.8 F 80 16 141/84 H 90 L 04/03/17 11:20 04/03/17 11:20 04/03/17 11:20 04/03/17 11:20 04/03/17 11:20
--- NOTE | 2017-04-03 12:11 | RADIOLOGY REPORT (SQ) ---
EXAM DESCRIPTION: CHEST PA/LAT COMPLETED DATE/TIME: 04/03/2017 11:40 am REASON FOR STUDY: sob COMPARISON: 07/10/2016. EXAM PARAMETERS: NUMBER OF VIEWS: two views TECHNIQUE: Digital Frontal and Lateral radiographic views of the chest acquired. RADIATION DOSE: NA LIMITATIONS: none FINDINGS: LUNGS AND PLEURA: Diffuse interstitial prominence. Streaky atelectasis in the left lung b ase. No focal infiltrates, masses or pneumothorax. Left pleural effusion. MEDIASTINUM AND HILAR STRUCTURES: No masses or contour abnormalities. HEART AND VASCULAR STRUCTURES: Heart normal size. Mild vascular congestion. BONES: No acute findings. Degenerative changes in the spine. HARDWARE: Sternotomy wires and valvular prosthesis. Clips in the upper abdomen. OTHER: No other significant finding. IMPRESSION: MILD VASCULAR CONGESTION WITH INTERSTITIAL EDEMA. LEFT PLEURAL EFFUSION. STREAKY ATELE CTASIS IN THE LEFT LUNG BASE. TECHNICAL DOCUMENTATION: JOB ID: [id number] [employer]- All Rights Reserved
[2017-04-03 12:24] LABS: ABSOLUTE EOSINOPHILS # (AUTO) 0.1 10^3/uL (0.0-0.6); ABSOLUTE LYMPHOCYTES (AUTO) 0.8 10^3/uL (0.5-4.7); ABSOLUTE MONOCYTES (AUTO) 0.4 10^3/uL (0.1-1.4); ABSOLUTE NEUT (AUTO) 8.2 10^3/uL (1.7-8.2); BASOPHILS % (AUTO) 0.5 % (0-2); EOSINOPHILS % (AUTO) 1.2 % (0-6); HEMATOCRIT 28.3 % (36.0-47.0); HEMOGLOBIN 9.1 g/dL (12.0-15.5); MEAN CORPUSCULAR HEMOGLOBIN 28.4 pg (27.0-33.4); MEAN CORPUSCULAR VOLUME 89 fl (80-97); MONOCYTES % (AUTO) 3.7 % (3-13); PLATELET COUNT 361 10^3/uL (150-450); RED BLOOD COUNT 3.19 10^6/uL (3.72-5.28); RED CELL DISTRIBUTION WIDTH 17.4 % (11.5-14.0); SEGMENTED NEUTROPHILS % (AUTO) 86.6 % (42-78); TOTAL CELLS COUNTED % (AUTO) 100 %; WHITE BLOOD COUNT 9.5 10^3/uL (4.0-10.5)
[2017-04-03 12:47] LABS: ALANINE AMINOTRANSFERASE 32 U/L (9-52); ALBUMIN 3.9 g/dL (3.5-5.0); ALKALINE PHOSPHATASE 174 U/L (38-126); ANION GAP 7 (5-19); ASPARTATE AMINO TRANSFERASE 22 U/L (14-36); BILIRUBIN,DIRECT 0.4 mg/dL (0.0-0.4); BILIRUBIN,TOTAL 0.5 mg/dL (0.2-1.3); BLOOD UREA NITROGEN 23 mg/dL (7-20); CALCIUM 9.6 mg/dL (8.4-10.2); CARBON DIOXIDE 24 mmol/L (22-30); CHLORIDE 111 mmol/L (98-107); GLUCOSE 120 mg/dL (75-110); POTASSIUM 5.7 mmol/L (3.6-5.0); SODIUM 142.3 mmol/L (137-145); TOTAL PROTEIN 7.1 g/dL (6.3-8.2)
[2017-04-03 12:55] LABS: NT PRO BNP 10700 pg/mL (5-900)
[2017-04-03 12:56] LABS: TROPONIN I < 0.012 ng/mL
[2017-04-03] MEDS ORDERED: FUROSEMIDE INJ/PF 100 MG/10 ML SDV IV ONE (14:53)
--- NOTE | 2017-04-03 15:18 | EKG REPORT ---
SEVERITY:- ABNORMAL ECG - SINUS RHYTHM PROBABLE LVH WITH SECONDARY REPOL ABNRM : Confirmed by: Jere Ryan 03-Apr-2017 15:18:00
--- NOTE | 2017-04-03 15:31 | ER Document Report ---
ED General - General Chief Complaint: Anemia Stated Complaint: LEG AND FEET SWELLING Time Seen by Provider: 04/03/17 11:27 Notes: The patient is a 71-year-old female, past medical history CHF, COPD, presents with increased leg and feet swelling bilaterally. She is having mild dyspnea on exertion, but no shortness of breath at rest. Patient is unsure if she is on a diuretic, but she does take potassium daily. She had outpatient labs done which showed a hemoglobin of 8.2 and the patient was told that she may need a blood transfusion. She denies active bleeding, fevers, nausea, vomiting, chest pain, cough, palpitations, calf tenderness or abdominal pain. TRAVEL OUTSIDE OF THE [place] IN LAST 30 DAYS: No - Related Data Allergies/Adverse Reactions: Sulfa (Sulfonamide Antibiotics) Allergy (Intermediate, Verified 06/20/16 17:24) Hives Past Medical History - General Information source: Patient - Social History Smoking Status: Never Smoker Chew tobacco use (# tins/day): No Frequency of alcohol use: None Drug Abuse: None Family History: Reviewed & Not Pertinent Patient has suicidal ideation: No Patient has homicidal ideation: No - Past Medical History Cardiac Medical History: Reports: Hx Congestive Heart Failure, Hx Hypertension, Hx Peripheral Vascular Disease Denies: Hx Heart Attack Pulmonary Medical History: Reports: Hx Asthma, Hx COPD Neurological Medical History: Reports: Hx Cerebrovascular Accident - X 3 RESIDULE EFFECTS RESOLVED, DIFFICULTY WALKING. Denies: Hx Seizures Endocrine Medical History: Reports: Hx Diabetes Mellitus Type 2 - with neuropathy Renal/ Medical History: Denies: Hx Peritoneal Dialysis GI Medical History: Denies: Hx Hepatitis, Hx Hiatal Hernia, Hx Ulcer Musculoskeltal Medical History: Reports Hx Arthritis Infectious Medical History: Denies: Hx Hepatitis Past Surgical History: Reports: Hx Cholecystectomy, Hx Hysterectomy, Hx Tubal Ligation, Other - cataract surgery - Immunizations Hx Diphtheria, Pertussis, Tetanus Vaccination: No Review of Systems - Review of Systems Notes: REVIEW OF SYSTEMS: CONSTITUTIONAL: -fevers, -chills EENT: -eye pain, -difficulty swallowing, -nasal congestion CARDIOVASCULAR: -chest pain, -syncope, +edema RESPIRATORY: -cough, -SOB GASTROINTESTINAL: -abdominal pain, -nausea, -vomiting, -diarrhea GENITOURINARY: -dysuria, -hematuria MUSCULOSKELETAL: -back pain, -neck pain SKIN: -rash or skin lesions. HEMATOLOGIC: -easy bruising or bleeding. LYMPHATIC: -swollen, enlarged glands. NEUROLOGICAL: -altered mental status or loss of consciousness, -headache, - neurologic symptoms PSYCHIATRIC: -anxiety, -depression. ALL OTHER SYSTEMS REVIEWED AND NEGATIVE. Physical Exam - Vital signs Vitals: Temp Pulse Resp BP Pulse Ox 97.8 F 80 16 141/84 H 90 L 04/03/17 11:20 04/03/17 11:20 04/03/17 11:20 04/03/17 11:20 04/03/17 11:20 - Notes Notes: PHYSICAL EXAMINATION: GENERAL: Well-appearing, well-nourished and in no acute distress. HEAD: Atraumatic, normocephalic. EYES: Pupils equal round and reactive to light, extraocular movements intact, sclera anicteric, conjunctiva are normal. ENT: nares patent, oropharynx clear without exudates. Moist mucous membranes. NECK: Normal range of motion, supple without lymphadenopathy LUNGS: No respiratory distress or increased work of breathing. Mild rales at bases. HEART: Regular rate and rhythm without murmurs ABDOMEN: Soft, nontender, normoactive bowel sounds. No guarding, no rebound. No masses appreciated. EXTREMITIES: Normal range of motion, 2+ pitting edema in B/L legs up to knees. No cyanosis. NEUROLOGICAL: Cranial nerves grossly intact. Normal speech, normal gait. Normal sensory and motor exams. PSYCH: Normal mood, normal affect. SKIN: Warm, Dry, normal turgor, no rashes or lesions noted. Course - Re-evaluation Re-evalutation: Patient appears well and is in no respiratory distress. She has bilateral edema up to her knees. Chest x-ray shows mild pulmonary edema, but patient satting above 90% (has a history of COPD). Patient's hemoglobin is 9.1 and she does not require an emergent blood transfusion at this time. Her potassium is 5.7, but there is no EKG changes. Patient takes potassium daily and instructed her to hold off on taking any exogenous potassium and to eat a low potassium diet. Patient provided a dose of IV Lasix and will send home with 3 more days of Lasix with follow-up at her primary care physician for a recheck of her mild CHF exacerbation. - Vital Signs Vital signs: Temp Pulse Resp BP Pulse Ox 97.8 F 80 16 141/84 H 90 L 02/12/18 11:20 04/03/17 11:20 04/03/17 11:20 04/03/17 11:20 04/03/17 11:20 - Laboratory Result Diagrams: 04/03/17 12:05 04/03/17 12:05 Laboratory results interpreted by me: 04/03/17 04/03/17 04/03/17 12:05 12:05 12:05 RBC 3.19 L Hgb 9.1 L Hct 28.3 L RDW 17.4 H Seg Neutrophils % 86.6 H Lymphocytes % 8.0 L Potassium 5.7 H Chloride 111 H BUN 23 H Creatinine 1.78 H Est GFR ( Amer) 34 L Est GFR (Non-Af Amer) 28 L Glucose 120 H Alkaline Phosphatase 174 H NT-Pro-B Natriuret Pep 84716 H - Diagnostic Test Radiology reviewed: Image reviewed, Reports reviewed Radiology results interpreted by me: CXR: MILD VASCULAR CONGESTION WITH INTERSTITIAL EDEMA. LEFT PLEURAL EFFUSION. STREAKY ATELECTASIS IN THE LEFT LUNG BASE. - EKG Interpretation by Me EKG shows normal: Sinus rhythm, [place], Intervals, QRS Complexes, ST-T Waves Rate: Normal Discharge - Discharge Clinical Impression: Peripheral edema, Hyperkalemia Condition: Stable Disposition: HOME, SELF-CARE Additional Instructions: Do not take your potassium pills and try to eat a low potassium diet. Take the Lasix as prescribed and follow-up with your primary care physician this week for recheck of your symptoms. Return to the ER if you have worsening shortness of breath or any other concerns. Edema, Peripheral You have swelling in your legs. This is called peripheral edema. It can be caused by "leaky capillaries," inflammation, disease of the leg veins, or excess salt and water in your body. Edema may be a sign of heart, kidney, or liver disease. A medical evaluation can determine if there is a serious underlying cause for your edema. Avoid prolonged standing. If you must sit for a long time, occasionally get up and walk around or elevate your legs. Support stockings can be helpful in limiting swelling. Often diuretic or water pills are used to remove excess salt and water from your body. Call the doctor or return if you develop increased swelling, pain, or redness, shortness of breath, chest pain, or any other significant change. Prescriptions: Furosemide [Lasix 40 mg Tablet] 40 mg PO QAM #3 tablet Forms: Elevated Blood Pressure Referrals: QUAN BERRIOS MD [ACTIVE STAFF] - Follow up as needed
[2017-04-03 16:12] VITALS: BP 134/94
== END 2017-04-03 17:08 | disposition home or self-care (01) ==
LOC: ER 10:56
DX: R60.0 Localized edema (principal); E87.5 Hyperkalemia; D64.9 Anemia, unspecified; M79.89 Other specified soft tissue disorders; I50.9 Heart failure, unspecified; J44.9 Chronic obstructive pulmonary disease, unspecified; R06.00 Dyspnea, unspecified
CPT/HCPCS: 93005; 99285; 96374; 36415; 85025; 80053; 84484; 83880; 71046; 93010; J1940

== ENCOUNTER 2017-04-08 07:51 | Emergency (ER) | payer MEDICARE ==
--- NOTE | 2017-04-08 09:41 | ER Document Report ---
ED Medical Screen (RME) - General Chief Complaint: Abnormal Lab Results Stated Complaint: ABNORMAL LABS Time Seen by Provider: 04/08/17 09:31 Mode of Arrival: Ambulatory Information source: Patient Notes: This patient presents to the emergency department saying that she was told to come for evaluation of a "low blood count." Apparently her primary care provider, a nurse practitioner in [place], ordered laboratory work through [facility] on , 2 days ago. Patient states she received a phone call yesterday telling her to be at this emergency department this morning for further evaluation and treatment. Also, she states she had an EGD done 2 days ago, and was told the results were negative. Except for fatigue, she denies any other unusual symptoms. She states she has chest pain routinely , and this has not increased recently. She denies any visible blood loss. The only laboratory values available to me at the present time are a hemogram which was done 2 days ago showing a hemoglobin of 8.0. TRAVEL OUTSIDE OF THE [place] IN LAST 30 DAYS: No - Related Data Allergies/Adverse Reactions: Sulfa (Sulfonamide Antibiotics) Allergy (Intermediate, Verified 04/08/17 07:53) Hives Past Medical History - Social History Chew tobacco use (# tins/day): No Frequency of alcohol use: None Drug Abuse: None - Past Medical History Cardiac Medical History: Reports: Hx Congestive Heart Failure, Hx Hypertension, Hx Peripheral Vascular Disease Denies: Hx Heart Attack Pulmonary Medical History: Reports: Hx Asthma, Hx COPD Neurological Medical History: Reports: Hx Cerebrovascular Accident - X 3 RESIDULE EFFECTS RESOLVED, DIFFICULTY WALKING. Denies: Hx Seizures Endocrine Medical History: Reports: Hx Diabetes Mellitus Type 2 - with neuropathy Renal/ Medical History: Denies: Hx Peritoneal Dialysis GI Medical History: Denies: Hx Hepatitis, Hx Hiatal Hernia, Hx Ulcer Musculoskeltal Medical History: Reports Hx Arthritis Infectious Medical History: Denies: Hx Hepatitis Past Surgical History: Reports: Hx Cholecystectomy, Hx Hysterectomy, Hx Tubal Ligation, Other - cataract surgery - Immunizations Hx Diphtheria, Pertussis, Tetanus Vaccination: No Physical Exam - Vital signs Vitals: Temp Pulse Resp BP Pulse Ox 98.8 F 82 16 137/66 H 90 L 04/08/17 07:58 04/08/17 07:58 04/08/17 07:58 04/08/17 07:58 04/08/17 07:58 Interpretation: Hypertensive, Hypoxic. No: Tachycardic, Tachypneic - General General appearance: Alert, Other - Pallid skin - HEENT Eyes: Pale conjunctiva Course - Vital Signs Vital signs: Temp Pulse Resp BP Pulse Ox 98.8 F 82 16 137/66 H 90 L 04/08/17 07:58 04/08/17 07:58 04/08/17 07:58 04/08/17 07:58 04/08/17 07:58
[2017-04-08 10:32] LABS: ABSOLUTE EOSINOPHILS # (AUTO) 0.2 10^3/uL (0.0-0.6); ABSOLUTE LYMPHOCYTES (AUTO) 0.9 10^3/uL (0.5-4.7); ABSOLUTE MONOCYTES (AUTO) 0.5 10^3/uL (0.1-1.4); ABSOLUTE NEUT (AUTO) 5.7 10^3/uL (1.7-8.2); ABSOLUTE RETICS # 0.067 10^6/uL (0.028-0.122); BASOPHILS % (AUTO) 0.5 % (0-2); EOSINOPHILS % (AUTO) 3.3 % (0-6); HEMATOCRIT 25.2 % (36.0-47.0); HEMOGLOBIN 8.2 g/dL (12.0-15.5); MEAN CORPUSCULAR HEMOGLOBIN 28.4 pg (27.0-33.4); MEAN CORPUSCULAR HGB CONC 32.5 g/dL (32.0-36.0); MEAN CORPUSCULAR VOLUME 87 fl (80-97); MONOCYTES % (AUTO) 6.3 % (3-13); PLATELET COUNT 315 10^3/uL (150-450); RED BLOOD COUNT 2.88 10^6/uL (3.72-5.28); RED CELL DISTRIBUTION WIDTH 17.7 % (11.5-14.0); RETICULOCYTE COUNT (AUTO) 2.34 % (0.66-2.85); SEGMENTED NEUTROPHILS % (AUTO) 77.9 % (42-78); TOTAL CELLS COUNTED % (AUTO) 100 %; WHITE BLOOD COUNT 7.4 10^3/uL (4.0-10.5)
--- NOTE | 2017-04-08 10:46 | ER Document Report ---
ED General - General Chief Complaint: Abnormal Lab Results Stated Complaint: ABNORMAL LABS Time Seen by Provider: 04/08/17 09:31 Mode of Arrival: Ambulatory Notes: Patient is here today because she was called to come back due to a low hemoglobin on an outpatient lab test on April 06. Patient has been experiencing leg swelling for the past month or so. She is also been having some shortness of breath for a few weeks. Patient was just started on home oxygen at 2 L, last week. She was seen here on April 03 and her chest x-ray showed some increased pulmonary vasculature and she had peripheral edema and was discharged with Lasix, but the patient says that has not helped and she is not urinating any more than usual. On that ED visit on the , her hemoglobin was 9.1 and as an outpatient 2 days ago, her hemoglobin was 8.0. Patient denies any blood loss noted anywhere. Also denies any dark black stools. She said that she had some diarrhea for about a month, a couple of months ago, but it was tested and was negative for blood and it was never black in color. Denies any abdominal pains. Patient has significant coronary artery disease. She had surgery 10 months ago for a "leaky valve". At that time, she also had 3 arteries that required surgery, not known whether they were stented or bypassed. She is also been told that she has significant kidney disease and has an appointment with a kidney specialist on May 05. TRAVEL OUTSIDE OF THE [place] IN LAST 30 DAYS: No - Related Data Allergies/Adverse Reactions: Sulfa (Sulfonamide Antibiotics) Allergy (Intermediate, Verified 04/08/17 07:53) Hives Past Medical History - General Information source: Patient - Social History Smoking Status: Former Smoker - Ex-smoker for 20 years Chew tobacco use (# tins/day): No Frequency of alcohol use: None Drug Abuse: None Family History: Reviewed & Not Pertinent Patient has suicidal ideation: No Patient has homicidal ideation: No - Past Medical History Cardiac Medical History: Reports: Hx Congestive Heart Failure, Hx Coronary Artery Disease, Hx Hypertension, Hx Peripheral Vascular Disease, Other - Surgery for "leaky valve" in Jun, 2016 Pulmonary Medical History: Reports: Hx Asthma, Hx COPD Neurological Medical History: Reports: Hx Cerebrovascular Accident - X 3 RESIDULE EFFECTS RESOLVED, DIFFICULTY WALKING. Denies: Hx Seizures Endocrine Medical History: Reports: Hx Diabetes Mellitus Type 2 - with neuropathy Renal/ Medical History: Reports: Hx Renal Insufficiency Musculoskeltal Medical History: Reports Hx Arthritis Infectious Medical History: Denies: Hx Hepatitis Past Surgical History: Reports: Hx Cholecystectomy, Hx Hysterectomy, Hx Tubal Ligation, Other - cataract surgery - Immunizations Hx Diphtheria, Pertussis, Tetanus Vaccination: No Review of Systems - Review of Systems Notes: REVIEW OF SYSTEMS: CONSTITUTIONAL : Denies fever. EENT: Denies eye, ear, nose or mouth or throat pain or other symptoms. CARDIOVASCULAR: Denies chest pain. Bilateral ankle swelling for over a month. RESPIRATORY: Denies cough, chest congestion, but has been experiencing shortness of breath over the past few weeks. GASTROINTESTINAL: Denies abdominal pain or nausea, vomiting. Had an episode of diarrhea a couple of months ago which lasted about a month. GENITOURINARY: Denies difficulty or painful urinating, urinary frequency, blood in urine. MUSCULOSKELETAL: Denies back or neck pain. Denies joint pain or swelling. SKIN: Denies rash or skin lesions. NEUROLOGICAL: Denies LOC or altered mental status. Denies headache. Denies sensory loss or motor deficits. ALL OTHER SYSTEMS REVIEWED AND NEGATIVE. Physical Exam - Vital signs Vitals: Temp Pulse Resp BP Pulse Ox 98.8 F 82 16 137/66 H 90 L 04/08/17 07:58 04/08/17 07:58 04/08/17 07:58 04/08/17 07:58 04/08/17 07:58 Interpretation: Hypoxic - Notes Notes: PHYSICAL EXAMINATION: GENERAL: Well-appearing, in no acute distress. Pale. O2 sat 90% on room air. HEAD: Atraumatic, normocephalic. EYES: Pupils equal round and reactive to light, extraocular movements intact. ENT: oropharynx clear without exudates. Moist mucous membranes. NECK: Normal range of motion, supple. LUNGS: Breath sounds clear and equal bilaterally. HEART: Regular rate and rhythm without murmurs. ABDOMEN: Soft, nontender. No guarding or rebound. No masses. Rectal exam with yellow appearing stool. Guaiac sent BACK: No tenderness throughout entire back. EXTREMITIES: Normal range of motion without pain. Both lower legs are edematous , +2 or +3 bilaterally. Skin tenderness from being pulled tight over the swelling. However, negative Homans bilaterally and nothing that suggest blood clots. NEUROLOGICAL: Normal speech, normal gait. Normal sensory, motor, and reflex exams. Awake, alert, and oriented x3. Cranial nerves normal. PSYCH: Normal mood, normal affect. SKIN: Warm, dry, no rashes. Course - Re-evaluation Re-evalutation: 04/08/17 12:45 Patient's hemoglobin actually has gone up to 8.2, so her level is apparently stable. She does not meet criteria for blood transfusion at this time. Her stool occult blood was negative. Renal function is essentially the same as it was a couple of days ago with a creatinine of 1.97, slightly higher. GFR is 25. Potassium is 5.7. Patient's indices and lab studies suggest that she might need to be on iron, but I will leave that for her primary care provider. Chest x-ray shows a stable chronic lung change with left pleural effusion airspace disease. Final impression is stable appearance of the chest. I encouraged the patient to keep her appointment with the renal specialist in April, as scheduled. She is to follow-up with her primary care provider in a couple of days. I am going to give her 40 mg of Lasix IV today and tell her to keep increase her current daily Lasix from 40 mg daily to 40 mg twice a day. She is to follow-up with her primary care provider Monday or Monday and have them decide about continued Lasix at the higher dose. I believe I recall the patient is on potassium I am going to tell her not to take anymore potassium. Since her level has crept upward. - Vital Signs Vital signs: Temp Pulse Resp BP Pulse Ox 98.8 F 82 17 92/72 L 87 L 04/08/17 07:58 04/08/17 07:58 04/08/17 10:06 04/08/17 10:04 04/08/17 10:06 - Laboratory Result Diagrams: 04/08/17 09:55 04/08/17 09:55 Laboratory results interpreted by me: 04/08/17 04/08/17 09:55 09:55 RBC 2.88 L Hgb 8.2 L Hct 25.2 L RDW 17.7 H Lymphocytes % 12.0 L Sodium 133.9 L Potassium 5.7 H Carbon Dioxide 21 L BUN 34 H Creatinine 1.97 H Est GFR ( Amer) 30 L Est GFR (Non-Af Amer) 25 L Iron 24.6 L Alkaline Phosphatase 153 H Discharge - Discharge Clinical Impression: Anemia, Renal insufficiency, Peripheral edema, COPD (chronic obstructive pulmonary disease) Condition: Stable Disposition: HOME, SELF-CARE Additional Instructions: Edema, Peripheral You have swelling in your legs. This is called peripheral edema. It can be caused by "leaky capillaries," inflammation, disease of the leg veins, or excess salt and water in your body. Edema may be a sign of heart, kidney, or liver disease. A medical evaluation can determine if there is a serious underlying cause for your edema. Avoid prolonged standing. If you must sit for a long time, occasionally get up and walk around or elevate your legs. Support stockings can be helpful in limiting swelling. Often diuretic or water pills are used to remove excess salt and water from your body. Call the doctor or return if you develop increased swelling, pain, or redness, shortness of breath, chest pain, or any other significant change. Chronic Obstructive Lung Disease You have chronic obstructive lung disease (COPD). The symptoms come from emphysema (damage to small airways, with trapping of air in large sacks in the lung) and chronic bronchitis (repeated infection and damage to larger airways). The cause is almost always cigarette smoking, although dust exposure, asthma, and infections contribute. You should avoid fumes, dust, and smoke (especially tobacco smoke). Your condition will flare from time to time. There is no cure, but the symptoms can be treated. Bronchodilators (asthma medicine) are often helpful. Antibiotics help when infection is present. When shortness of breath is severe, we may prescribe cortisone medication. If medicine doesn't help enough, we can arrange for you to have an oxygen tank at home. Notify your doctor at once if sputum becomes thick, foul, or bloody, if you develop a fever or chest pain, or if your shortness of breath worsens. Anemia You have been found to have a significant anemia (a lower than normal amount of red blood cells). Anemia can be due to iron deficiency, vitamin deficiency, abnormal bleeding, or internal diseases. Usually, further tests are necessary to find the exact cause of the anemia. The most common cause of anemia is iron deficiency, often brought on by blood loss. This can be treated with iron supplements. If this appears to be the most likely cause, iron tablets may be prescribed even before all tests are complete. Contact the doctor at once if you note black or tarry-looking stools, bloody vomiting, shortness of breath, chest pain, or faintness. Your hemoglobin is not low enough to require transfusion at this time. It needs to be monitored and followed. Your primary care physician may wish to prescribe you iron pills. Your potassium level is slightly elevated so do not take anymore potassium medication. Increase your Lasix to 40 mg twice a day for the next 3 days, until Monday. Follow-up with your primary care provider to determine if you need to be on this higher dose for a longer time. FOLLOW-UP CARE: If you have been referred to a physician for follow-up care, call the physician s office for an appointment as you were instructed or within the next two days. If you experience worsening or a significant change in your symptoms, notify the physician immediately or return to the Emergency Department at any time for re-evaluation. Referrals: DAMIEN VAZQUEZ NP [Primary Care Provider] - Follow up in 3-5 days
[2017-04-08 10:49] LABS: ALANINE AMINOTRANSFERASE 31 U/L (9-52); ALBUMIN 3.7 g/dL (3.5-5.0); ALKALINE PHOSPHATASE 153 U/L (38-126); ANION GAP 9 (5-19); ASPARTATE AMINO TRANSFERASE 29 U/L (14-36); BILIRUBIN,DIRECT 0.4 mg/dL (0.0-0.4); BILIRUBIN,TOTAL 0.4 mg/dL (0.2-1.3); BLOOD UREA NITROGEN 34 mg/dL (7-20); CALCIUM 9.1 mg/dL (8.4-10.2); CARBON DIOXIDE 21 mmol/L (22-30); CHLORIDE 104 mmol/L (98-107); GLUCOSE 100 mg/dL (75-110); IRON(TIBC) 24.6 ug/dL (37-170); POTASSIUM 5.7 mmol/L (3.6-5.0); SODIUM 133.9 mmol/L (137-145); TOTAL PROTEIN 6.7 g/dL (6.3-8.2)
--- NOTE | 2017-04-08 11:30 | RADIOLOGY REPORT (SQ) ---
EXAM DESCRIPTION: CHEST PA/LAT COMPLETED DATE/TIME: 04/08/2017 11:23 am REASON FOR STUDY: Shortness of breath, peripheral edema, anemia COMPARISON: 04/03/2017 EXAM PARAMETERS: NUMBER OF VIEWS: two views TECHNIQUE: Digital Frontal and Lateral radiographic views of the chest acquired. RADIATION DOSE: NA LIMITATIONS: none FINDINGS: LUNGS AND PLEURA: Stable chronic lung change with left pleural effusion airspace disease. No new opacities. No pneumothorax. MEDIASTINUM AND HILAR STRUCTURES: No masses or contour abnormalities. HEART AND VASCULAR STRUCTURES: Stable. BONES: No acute findings. HARDWARE: Stable. OTHER: No other significant finding. IMPRESSION: STABLE APPEARANCE OF THE CHEST WITH SMALL LEFT PLEURAL EFFUSION AND AIRSPACE DISEASE. TECHNICAL DOCUMENTATION: JOB ID: [id number] [employer]- All Rights Reserved
[2017-04-08] MEDS ORDERED: FUROSEMIDE INJ/PF 40 MG/4 ML SDV IV ONE (12:01)
[2017-04-08 13:15] VITALS: BP 127/68
== END 2017-04-08 13:13 | disposition home or self-care (01) ==
LOC: ER 07:51
DX: D64.9 Anemia, unspecified (principal); N28.9 Disorder of kidney and ureter, unspecified; R60.9 Edema, unspecified; J44.9 Chronic obstructive pulmonary disease, unspecified; I50.9 Heart failure, unspecified; I25.10 Atherosclerotic heart disease of native coronary artery without angina pectoris; I11.0 Hypertensive heart disease with heart failure; I69.993 Ataxia following unspecified cerebrovascular disease; E11.9 Type 2 diabetes mellitus without complications; Z90.49 Acquired absence of other specified parts of digestive tract; Z90.710 Acquired absence of both cervix and uterus; Z88.2 Allergy status to sulfonamides; Z87.891 Personal history of nicotine dependence
CPT/HCPCS: 99284; 96374; 36415; 82607; 82728; 82746; 83540; 83550; 85025; 82272; 85045; 80053; 84466; 71046; J1940

== ENCOUNTER 2017-04-14 08:30 | Outpatient (CLI) | payer MEDICARE ==
[~2017-04-14 08:30] MED LIST: ACETAMINOPHEN 325 MG TABLET PO PRN; DIPHENHYDRAMINE HCL 25 MG CAPSULE PO PRN
[2017-04-14 08:48] LABS: HEMATOCRIT 23.4 % (36.0-47.0); MEAN CORPUSCULAR HEMOGLOBIN 27.9 pg (27.0-33.4); MEAN CORPUSCULAR HGB CONC 32.6 g/dL (32.0-36.0); MEAN CORPUSCULAR VOLUME 86 fl (80-97); PLATELET COUNT 316 10^3/uL (150-450); RED BLOOD COUNT 2.74 10^6/uL (3.72-5.28); RED CELL DISTRIBUTION WIDTH 17.4 % (11.5-14.0); WHITE BLOOD COUNT 6.1 10^3/uL (4.0-10.5)
[2017-04-14 08:50] LABS: HEMOGLOBIN 7.6 g/dL (12.0-15.5)
[2017-04-14] MEDS ORDERED: NORMAL SALINE 250 ML IV PRN (08:58)
[2017-04-14] MEDS ORDERED: FUROSEMIDE INJ/PF 20 MG/2 ML SDV IV PRN ×2 (08:59)
[2017-04-14 16:03] VITALS: BP 156/68
== END 2017-04-14 16:24 | disposition home or self-care (01) ==
LOC: II 08:30 → 5TH 08:45 → II 16:24
PROVIDERS: ATTEND Internal Medicine Hematology & Oncology
PROC: 30233N1 Transfusion of Nonautologous Red Blood Cells into Peripheral Vein, Percutaneous Approach (ICD-10-PCS; principal; 2017-04-14)
PROC: 3E033GC Introduction of Other Therapeutic Substance into Peripheral Vein, Percutaneous Approach (ICD-10-PCS; 2017-04-14)
DX: D64.9 Anemia, unspecified (principal); E11.22 Type 2 diabetes mellitus with diabetic chronic kidney disease; N18.4 Chronic kidney disease, stage 4 (severe); E55.9 Vitamin D deficiency, unspecified; I50.9 Heart failure, unspecified; E11.42 Type 2 diabetes mellitus with diabetic polyneuropathy; Z79.84 Long term (current) use of oral hypoglycemic drugs; Z98.890 Other specified postprocedural states; Z90.49 Acquired absence of other specified parts of digestive tract; Z90.710 Acquired absence of both cervix and uterus; Z79.82 Long term (current) use of aspirin; Z79.899 Other long term (current) drug therapy; Z87.891 Personal history of nicotine dependence; Z79.02 Long term (current) use of antithrombotics/antiplatelets
CPT/HCPCS: 86900; 86901; 36415; 36430; 86850; 86920; P9016; A9270 ×2; J1940; 96374

== ENCOUNTER 2017-05-26 12:08 | Inpatient (IN) | payer MEDICARE ==
--- NOTE | 2017-05-26 12:34 | ER Document Report ---
ED Medical Screen (RME) - General Chief Complaint: fluid retention Stated Complaint: FLUID RETENTION Time Seen by Provider: 05/26/17 12:26 Notes: RME DISCLOSURE I have seen this patient as part of a Rapid Medical Evaluation and, if applicable, placed any initially appropriate orders. The patient will be seen and fully evaluated, including a full history and physical exam, by a provider ( in Main ED or Fast Track) when a room becomes available. 71-year-old female PMH CHF oxygen dependent (2 L nasal cannula) here with complaints of progressively worsening shortness of breath and leg swelling from her feet up to her hips over the past few days. She does take Lasix 80 mg daily and has not missed any doses over the last few days. She reports to me that her kidney doctor sent her here for admission and IV Lasix. EXAM Moderate BLEs pitting edema TRAVEL OUTSIDE OF THE [place] IN LAST 30 DAYS: No - Related Data Allergies/Adverse Reactions: Sulfa (Sulfonamide Antibiotics) Allergy (Intermediate, Verified 05/26/17 12:14) Hives Past Medical History - Social History Chew tobacco use (# tins/day): No Frequency of alcohol use: None Drug Abuse: None - Past Medical History Cardiac Medical History: Reports: Hx Congestive Heart Failure, Hx Coronary Artery Disease, Hx Heart Attack, Hx Hypertension, Hx Peripheral Vascular Disease Pulmonary Medical History: Reports: Hx Asthma, Hx COPD Neurological Medical History: Reports: Hx Cerebrovascular Accident - X 3 RESIDULE EFFECTS RESOLVED, DIFFICULTY WALKING. Denies: Hx Seizures Endocrine Medical History: Reports: Hx Diabetes Mellitus Type 2 - with neuropathy Renal/ Medical History: Reports: Hx Renal Insufficiency. Denies: Hx Peritoneal Dialysis GI Medical History: Reports: Hx Gastroesophageal Reflux Disease. Denies: Hx Hepatitis, Hx Hiatal Hernia, Hx Ulcer Musculoskeltal Medical History: Reports Hx Arthritis Infectious Medical History: Denies: Hx Hepatitis Past Surgical History: Reports: Hx Cholecystectomy, Hx Hysterectomy, Hx Tubal Ligation, Other - cataract surgery - Immunizations Hx Diphtheria, Pertussis, Tetanus Vaccination: No History of Influenza Vaccine for 11/2016 - 04/2017 Season: Refused Physical Exam - Vital signs Vitals: Temp Pulse Resp BP Pulse Ox 97.6 F 83 28 H 119/61 88 L 05/26/17 12:19 05/26/17 12:19 05/26/17 12:19 05/26/17 12:19 05/26/17 12:19 Course - Vital Signs Vital signs: Temp Pulse Resp BP Pulse Ox 97.6 F 83 28 H 119/61 88 L 05/26/17 12:19 05/26/17 12:19 05/26/17 12:19 05/26/17 12:19 05/26/17 12:19
[2017-05-26 12:55] LABS: ABSOLUTE EOSINOPHILS # (AUTO) 0.2 10^3/uL (0.0-0.6); ABSOLUTE LYMPHOCYTES (AUTO) 0.9 10^3/uL (0.5-4.7); ABSOLUTE MONOCYTES (AUTO) 0.5 10^3/uL (0.1-1.4); ABSOLUTE NEUT (AUTO) 5.4 10^3/uL (1.7-8.2); BASOPHILS % (AUTO) 0.5 % (0-2); EOSINOPHILS % (AUTO) 2.5 % (0-6); HEMOGLOBIN 8.6 g/dL (12.0-15.5); LYMPHOCYTES % (AUTO) 12.9 % (13-45); MEAN CORPUSCULAR HEMOGLOBIN 28.6 pg (27.0-33.4); MEAN CORPUSCULAR VOLUME 87 fl (80-97); MONOCYTES % (AUTO) 7.2 % (3-13); PLATELET COUNT 278 10^3/uL (150-450); RED CELL DISTRIBUTION WIDTH 18.1 % (11.5-14.0); SEGMENTED NEUTROPHILS % (AUTO) 76.9 % (42-78); TOTAL CELLS COUNTED % (AUTO) 100 %
--- NOTE | 2017-05-26 13:11 | RADIOLOGY REPORT (SQ) ---
EXAM DESCRIPTION: CHEST 2 VIEWS COMPLETED DATE/TIME: 05/26/2017 12:56 pm REASON FOR STUDY: SOB fluid overload COMPARISON: 04/03/2017 and 02/25/2016 EXAM PARAMETERS: NUMBER OF VIEWS: two views TECHNIQUE: Digital Frontal and Lateral radiographic views of the chest acquired. RADIATION DOSE: NA LIMITATIONS: none FINDINGS: LUNGS AND PLEURA: Chronic versus recurrent bilateral pleural effusions. Persistent fluid within the right minor fissure, unchanged from comparison imaging. No focal parenchymal opacity. No pneumothorax. MEDIASTINUM AND HILAR STRUCTURES: No masses or contour abnormalities. HEART AND VASCULAR STRUCTURES: The cardiac silhouette appears mildly enlarged in the study interval. Chronic versus recurrent central vascular congestion. BONES: No acute findings. HARDWARE: Midline surgical changes. OTHER: No other significant finding. IMPRESSION: Constellation of findings consistent with clinically suspected CHF exacerbation. TECHNICAL DOCUMENTATION: JOB ID: [id number] [employer]- All Rights Reserved Reading location - IP/workstation name: [email or web address]
[2017-05-26 13:18] LABS: ANION GAP 8 (5-19); BLOOD UREA NITROGEN 35 mg/dL (7-20); CALCIUM 9.1 mg/dL (8.4-10.2); CARBON DIOXIDE 27 mmol/L (22-30); CHLORIDE 100 mmol/L (98-107); GLUCOSE 107 mg/dL (75-110); POTASSIUM 5.5 mmol/L (3.6-5.0); SODIUM 134.6 mmol/L (137-145)
--- NOTE | 2017-05-26 13:20 | ER Document Report ---
ED General - General Chief Complaint: Edema Stated Complaint: FLUID RETENTION Time Seen by Provider: 05/26/17 12:26 Notes: 71-year-old female presents to the ER with shortness of breath and fluid retention. Patient has noticed over the last 3 weeks she has had increasing lower extremity edema and difficulty breathing. She states she cannot lay flat at night and was proper self up on pillows she is having increasing exertional dyspnea. She was seeing nephrology today Dr. Poole and was sent over here to the emergency department for admission for fluid overload and pulmonary edema. Nephrology Dr. Poole stated he will see the patient on consultation in the hospital but the patient does not need any dialysis or anything of the sort. The patient had no fever chills has had a nonproductive cough. Denies sore throat. Denies rashes. TRAVEL OUTSIDE OF THE [place] IN LAST 30 DAYS: No - Related Data Allergies/Adverse Reactions: Sulfa (Sulfonamide Antibiotics) Allergy (Intermediate, Verified 05/26/17 12:14) Hives Past Medical History - Social History Smoking Status: Never Smoker Chew tobacco use (# tins/day): No Frequency of alcohol use: None Drug Abuse: None Family History: Reviewed & Not Pertinent Patient has suicidal ideation: No Patient has homicidal ideation: No - Past Medical History Cardiac Medical History: Reports: Hx Congestive Heart Failure, Hx Coronary Artery Disease, Hx Heart Attack, Hx Hypertension, Hx Peripheral Vascular Disease Pulmonary Medical History: Reports: Hx Asthma, Hx COPD Neurological Medical History: Reports: Hx Cerebrovascular Accident - X 3 RESIDULE EFFECTS RESOLVED, DIFFICULTY WALKING. Denies: Hx Seizures Endocrine Medical History: Reports: Hx Diabetes Mellitus Type 2 - with neuropathy Renal/ Medical History: Reports: Hx Renal Insufficiency. Denies: Hx Peritoneal Dialysis GI Medical History: Reports: Hx Gastroesophageal Reflux Disease. Denies: Hx Hepatitis, Hx Hiatal Hernia, Hx Ulcer Musculoskeltal Medical History: Reports Hx Arthritis Infectious Medical History: Denies: Hx Hepatitis Past Surgical History: Reports: Hx Cholecystectomy, Hx Hysterectomy, Hx Open Heart Surgery, Hx Tubal Ligation, Other - cataract surgery - Immunizations Hx Diphtheria, Pertussis, Tetanus Vaccination: No Review of Systems - Review of Systems Constitutional: Malaise, Weakness, Weight gain Cardiovascular: Orthopnea, Dyspnea, Edema Respiratory: Cough, Short of breath Genitourinary: denies: Dysuria, Hematuria -: Yes All other systems reviewed and negative Physical Exam - Vital signs Vitals: Temp Pulse Resp BP Pulse Ox 97.6 F 83 28 H 119/61 88 L 05/26/17 12:19 05/26/17 12:19 05/26/17 12:19 05/26/17 12:19 05/26/17 12:19 - Notes Notes: GENERAL_APPEARANCE: well_nourished, alert, cooperative, patient will not lay flat on the bed and is sitting on the edge of the bed VITALS: reviewed, see vital signs table. HEAD: no_swelling\tenderness on the head. EYES: PERRL, EOMI, conjunctiva_clear. NOSE: no_nasal_discharge. MOUTH: (-)decreased moisture. THROAT: no_tonsilar_inflammation, no_airway_obstruction. no_lymphadenopathy NECK: supple, no_neck_tenderness, (-)thyromegaly. BACK: no_back_tenderness. CHEST_WALL: no_chest_tenderness. LUNGS: no_wheezing, bibasilar Rales no_rhonchi, (-)accessory muscle use, there air exchange bilateral. HEART: normal_rate, normal_rhythm, normal_S1, normal_S2, (-)S3, (-)S4, no_ murmur, no_rub. ABDOMEN: soft, no_abd_tenderness, (-)guarding, (-)rebound, no_organomegaly, no_ abd_masses. EXTREMITIES: good pulses in all_extremities, no_swelling\tenderness in the extremities, 3+_edema. SKIN: warm, dry, good_color, no_rash. MENTAL_STATUS: speech_clear, oriented_X_3, normal_affect, responds_ appropriately to questions. Course - Re-evaluation Re-evalutation: 05/26/17 13:19 Dr. Poole called head. He is concerned about this patient being fluid overloaded. Recommends admission to the hospital and continued diuresis. Patient has been on home Lasix but has not been diuresing appropriately. The patient arrives with acute decompensated congestive heart failure. The patient has rales on exam. She has 3+ edema. She was given a dose of Lasix here will be given Nitropaste. I will speak with the admitting service for admission. - Vital Signs Vital signs: Temp Pulse Resp BP Pulse Ox 97.6 F 83 22 H 110/66 100 05/26/17 12:19 05/26/17 12:19 05/26/17 13:30 05/26/17 13:30 05/26/17 13:30 - Laboratory Result Diagrams: 05/26/17 12:42 05/26/17 12:42 Laboratory results interpreted by me: 05/26/17 05/26/17 05/26/17 12:42 12:42 12:42 RBC 3.00 L Hgb 8.6 L Hct 26.0 L RDW 18.1 H Lymphocytes % 12.9 L Sodium 134.6 L Potassium 5.5 H BUN 35 H Creatinine 2.18 H Est GFR ( Amer) 27 L Est GFR (Non-Af Amer) 22 L NT-Pro-B Natriuret Pep [id number] H - EKG Interpretation by Me EKG shows normal: Sinus rhythm Rhythm: NSR Additional EKG results interpreted by me: 05/26/17 14:02 NS @ 85 Discharge - Discharge Clinical Impression: Acute renal insufficiency CHF (congestive heart failure) Qualifiers: Heart failure type: systolic Heart failure chronicity: acute Qualified Code(s) : I50.21 - Acute systolic (congestive) heart failure Condition: Fair Disposition: ADMITTED INPATIENT Admitting Provider: Hospitalist Unit Admitted: Telemetry
[2017-05-26] MEDS ORDERED: NITROGLYCERIN 2% OINTMENT 1 GM PACKET TP ONE (13:21)
[2017-05-26] MEDS ORDERED: FUROSEMIDE INJ/PF 100 MG/10 ML SDV IV ONE (13:21)
[2017-05-26 13:27] LABS: NT PRO BNP 17400 pg/mL (5-900)
[2017-05-26 13:30] LABS: TROPONIN I < 0.012 ng/mL
[2017-05-26] MEDS ORDERED: ONDANSETRON HCL INJ/PF 4 MG/2 ML SDV IV PRN (14:11)
[2017-05-26] MEDS ORDERED: TRAMADOL HCL 50 MG TABLET PO PRN (14:18)
[2017-05-26] MEDS ORDERED: MECLIZINE HCL 25 MG TABLET PO PRN (14:18)
[2017-05-26] MEDS ORDERED: NITROGLYCERIN 0.4 MG/TAB 25 TAB/BOTTLE SL PRN (14:18)
[2017-05-26] MEDS ORDERED: ALBUTEROL SULFATE IH PRN (14:18)
[2017-05-26] MEDS ORDERED: ALBUTEROL SULFATE HFA (90 MCG/PUFF) 200 PUFF/8.5 GM MDI IH PRN (14:25)
--- NOTE | 2017-05-26 15:43 | PDOC H&P ---
History of Present Illness Admission Date/PCP: 05/26/17 14:24 NO LOCALMD Patient complains of: Increasing shortness of breath and dyspnea History of Present Illness: VAMSHI DOUGHERTY is a 71 year old female female with past medical history of CAD, post op CABG in Jun, 2016, essential hypertension and chronic diastolic heart failure; who presents to the ER with shortness of breath and fluid retention. Patient has noticed over the last 3 weeks she has had increasing lower extremity edema and difficulty breathing. She states she cannot lay flat at night and was proper self up on pillows she is having increasing exertional dyspnea. She was seeing nephrology today Dr. Poole and was referred to the ER for admission for acute on chronic heart failure Nephrology Dr. Poole stated he will see the patient on consultation in the hospital but the patient does not need any dialysis or anything of the sort. The patient had no fever chills has had a nonproductive cough. Denies sore throat. Denies rashes. Past Medical History Cardiac Medical History: Reports: Congestive Heart Failure, Coronary Artery Disease, Myocardial Infarction, Hypertension, Peripheral Vascular Disease Pulmonary Medical History: Reports: Asthma, Chronic Obstructive Pulmonary Disease (COPD) Neurological Medical History: Denies: Seizures Endocrine Medical History: Reports: Diabetes Mellitus Type 2 - with neuropathy GI Medical History: Reports: Gastroesophageal Reflux Disease Denies: Hepatitis, Hiatal Hernia Musculoskeltal Medical History: Reports: Arthritis Hematology: Reports: Anemia Past Surgical History Past Surgical History: Reports: Cholecystectomy, Hysterectomy, Tubal Ligation, Other - cataract surgery Social History Information Source: Patient Lives with: Family Smoking Status: Never Smoker Frequency of Alcohol Use: None Hx Recreational Drug Use: No Drugs: None Hx Prescription Drug Abuse: No - Advance Directive Resuscitation Status: Full Code Surrogate healthcare decision maker:: is her surrogate decision maker Family History Family History: CAD, DM, Hypertension Parental Family History Reviewed: Yes Children Family History Reviewed: Yes Sibling(s) Family History Reviewed.: Yes Medication/Allergy Allergies/Adverse Reactions: Sulfa (Sulfonamide Antibiotics) Allergy (Intermediate, Verified 05/26/17 12:14) Hives Review of Systems Constitutional: PRESENT: chills, fatigue, weakness, weight gain Eyes: ABSENT: visual disturbances Ears: ABSENT: hearing changes Cardiovascular: PRESENT: dyspnea on exertion, edema, orthropnea, palpitations Respiratory: PRESENT: cough, dyspnea, sputum Gastrointestinal: PRESENT: bloating, heartburn Genitourinary: ABSENT: dysuria, hematuria Musculoskeletal: ABSENT: joint swelling Integumentary: ABSENT: rash, wounds Neurological: PRESENT: weakness. ABSENT: abnormal gait, abnormal speech, confusion, dizziness, focal weakness, syncope Psychiatric: ABSENT: anxiety, depression, homidical ideation, suicidal ideation Endocrine: ABSENT: cold intolerance, heat intolerance, polydipsia, polyuria Hematologic/Lymphatic: ABSENT: easy bleeding, easy bruising Physical Exam Vital Signs: Temp Pulse Resp BP Pulse Ox 97.6 F 83 22 H 110/66 100 05/26/17 12:19 05/26/17 12:19 05/26/17 13:30 05/26/17 13:30 05/26/17 13:30 General appearance: PRESENT: no acute distress, obese, well-developed, well- nourished Head exam: PRESENT: atraumatic, normocephalic Eye exam: PRESENT: conjunctiva pink, EOMI, PERRLA. ABSENT: scleral icterus Ear exam: PRESENT: normal external ear exam Mouth exam: PRESENT: moist, tongue midline Neck exam: ABSENT: carotid bruit, JVD, lymphadenopathy, thyromegaly Respiratory exam: PRESENT: decreased breath sounds - bilateral bases, rales, symmetrical, unlabored Cardiovascular exam: PRESENT: RRR. ABSENT: diastolic murmur, rubs, systolic murmur Pulses: PRESENT: normal dorsalis pedis pul Vascular exam: PRESENT: normal capillary refill GI/Abdominal exam: PRESENT: normal bowel sounds, soft, tenderness Rectal exam: PRESENT: deferred Extremities exam: PRESENT: full ROM, other - +3 bilateral lower extremity edema Neurological exam: PRESENT: alert, awake, oriented to person, oriented to place , oriented to time, oriented to situation, CN II-XII grossly intact. ABSENT: motor sensory deficit Psychiatric exam: PRESENT: appropriate affect, normal mood. ABSENT: homicidal ideation, suicidal ideation Skin exam: PRESENT: dry, intact, warm. ABSENT: cyanosis, rash Results Laboratory Results: 05/26/17 14:37 Troponin I < 0.012 Impressions: Chest X-Ray 05/26/17 12:30 IMPRESSION: Constellation of findings consistent with clinically suspected CHF exacerbation. Assessment & Plan - Diagnosis (1) Acute on chronic diastolic heart failure due to coronary artery disease Is this a current diagnosis for this admission?: Yes Plan: Will start on IV lasix bid. Consult cardiology, Dr Ryan (2) Acute renal failure Qualifiers: Acute renal failure type: unspecified Qualified Code(s): N17.9 - Acute kidney failure, unspecified Is this a current diagnosis for this admission?: Yes Plan: Patient with CKD now with increase in creatinine to 2.[address] Poole nephrology (3) COPD (chronic obstructive pulmonary disease) with acute bronchitis Is this a current diagnosis for this admission?: Yes Plan: Continue home inhalers (4) Claudication of both lower extremities Is this a current diagnosis for this admission?: Yes Plan: Aspirin, plavix and statin (5) Diabetes Qualifiers: Diabetes mellitus type: type 2 Diabetes mellitus moth exterminator insulin use: without moth exterminator use Diabetes mellitus complication status: with unspecified complications Qualified Code(s): E11.8 - Type 2 diabetes mellitus with unspecified complications Is this a current diagnosis for this admission?: Yes Plan: Continue home medication and sliding scale coverage (7) Hyperlipidemia Qualifiers: Hyperlipidemia type: unspecified Qualified Code(s): E78.5 - Hyperlipidemia , unspecified Is this a current diagnosis for this admission?: Yes Plan: Continue statin (8) Shortness of breath Is this a current diagnosis for this admission?: Yes Plan: Fluid volume overload - Time Time Spent: 50 to 70 Minutes Critical Time spent with patient: 25-34 minutes Medications reviewed and adjusted accordingly: Yes Anticipated discharge: Home with Homehealth - Inpatient Certification Based on my medical assessment, after consideration of the patient's comorbidities, presenting symptoms, or acuity I expect that the services needed warrant INPATIENT care.: Yes I certify that my determination is in accordance with my understanding of Medicare's requirements for reasonable and necessary INPATIENT services [42 CFR 412.3e].: Yes Medical Necessity: Failure to Improve With Outpatient Therapy, Significant Comorbidiites Make Outpatient Treatment Too Risky, Need Close Monitoring Due to Risk of Patient Decompensation
[2017-05-26] MEDS ORDERED: INSULIN LISPRO 100 UNIT/ML 3 ML VIAL SUBCUT PRN (17:27)
[2017-05-26] MEDS ORDERED: DEXTROSE 50%-WATER 25 GM/50 ML DISP.SYRIN IV PRN ×2 (17:27)
[2017-05-26] MEDS ORDERED: DEXTROSE 40% GEL 15 GM TUBE PO PRN ×2 (17:27)
[2017-05-26] MEDS ORDERED: GLUCAGON,HUMAN RECOMB 1 MG INJ IM PRN (17:27)
[2017-05-26] MEDS: MIDODRINE HCL 5 MG TABLET PO SCH (19:10)
--- NOTE | 2017-05-26 21:02 | EKG REPORT ---
SEVERITY:- ABNORMAL ECG - SINUS RHYTHM PROBABLE LVH WITH SECONDARY REPOL ABNRM : Confirmed by: Jere Ryan 26-May-2017 21:02:07
[2017-05-26] MEDS ORDERED: ATORVASTATIN CALCIUM 40 MG TABLET PO SCH (22:00)
[2017-05-26] MEDS ORDERED: CARVEDILOL 12.5 MG TABLET PO SCH ×2 (22:00)
[2017-05-26] MEDS: GLIPIZIDE 10 MG TABLET PO SCH (22:00)
[2017-05-26] MEDS: CARVEDILOL 6.25 MG TABLET PO SCH (22:01)
[2017-05-26] MEDS: FUROSEMIDE INJ/PF 40 MG/4 ML SDV IV SCH (22:02)
[2017-05-27 03:09] LABS: ABSOLUTE EOSINOPHILS # (AUTO) 0.1 10^3/uL (0.0-0.6); ABSOLUTE LYMPHOCYTES (AUTO) 0.9 10^3/uL (0.5-4.7); ABSOLUTE MONOCYTES (AUTO) 0.4 10^3/uL (0.1-1.4); ABSOLUTE NEUT (AUTO) 5.1 10^3/uL (1.7-8.2); ABSOLUTE RETICS # 0.057 10^6/uL (0.028-0.122); BASOPHILS % (AUTO) 0.7 % (0-2); HEMATOCRIT 24.5 % (36.0-47.0); HEMOGLOBIN 8.1 g/dL (12.0-15.5); LYMPHOCYTES % (AUTO) 13.3 % (13-45); MEAN CORPUSCULAR HEMOGLOBIN 28.5 pg (27.0-33.4); MEAN CORPUSCULAR HGB CONC 33.2 g/dL (32.0-36.0); MEAN CORPUSCULAR VOLUME 86 fl (80-97); MONOCYTES % (AUTO) 6.5 % (3-13); PLATELET COUNT 264 10^3/uL (150-450); RED BLOOD COUNT 2.85 10^6/uL (3.72-5.28); RED CELL DISTRIBUTION WIDTH 18.5 % (11.5-14.0); SEGMENTED NEUTROPHILS % (AUTO) 77.5 % (42-78); TOTAL CELLS COUNTED % (AUTO) 100 %; WHITE BLOOD COUNT 6.5 10^3/uL (4.0-10.5)
[2017-05-27 03:23] LABS: ANION GAP 7 (5-19); BLOOD UREA NITROGEN 36 mg/dL (7-20); CALCIUM 8.9 mg/dL (8.4-10.2); CARBON DIOXIDE 28 mmol/L (22-30); CHLORIDE 103 mmol/L (98-107); GLUCOSE 86 mg/dL (75-110)
[2017-05-27 03:27] LABS: IRON(TIBC) < 10.1 ug/dL (37-170)
[2017-05-27 03:33] LABS: POTASSIUM 4.5 mmol/L (3.6-5.0)
[2017-05-27] MEDS: ASPIRIN 81 MG TABLET, ENT COATED PO SCH (09:42)
[2017-05-27] MEDS: MIDODRINE HCL 5 MG TABLET PO SCH ×3 (09:42→18:24)
[2017-05-27] MEDS: CLOPIDOGREL BISULFATE 75 MG TABLET PO SCH (09:42)
[2017-05-27] MEDS: DOCUSATE SODIUM 100 MG CAPSULE PO SCH (09:42)
[2017-05-27] MEDS: FUROSEMIDE INJ/PF 40 MG/4 ML SDV IV SCH ×2 (09:42→22:24)
[2017-05-27] MEDS: GLIPIZIDE 10 MG TABLET PO SCH ×2 (09:42→22:24)
[2017-05-27] MEDS ORDERED: ENOXAPARIN SODIUM INJ 30 MG/0.3 ML DISP.SYRIN SUBCUT SCH (10:00)
--- NOTE | 2017-05-27 12:39 | PDOC CONSULTATION ---
Consultation Consult Date: 05/27/17 Consult reason:: Acute exacerbation of congestive heart failure History of Present Illness Admission Date/PCP: 05/26/17 14:24 NO LOCALMD History of Present Illness: Here is a very pleasant 71-year-old female with past medical history of coronary artery disease status post coronary artery bypass grafting on 2016 with [facility] to LAD, SVG to D1 and OM1, status post mitral valve repair with 26 mm physio II ring annuloplasty along with P1/P2 cleft repair, diabetes mellitus, COPD on home oxygen, chronic kidney disease, hypertension was admitted with acute on chronic shortness of breath along with swelling of her lower extremities. Patient is known to us from our cardiology practice and was recently admitted last [facility] with similar complaints and responded very well to intravenous diuretic therapy. Patient had a transthoracic echocardiogram done in April 2017 which showed preserved LV ejection fraction of 60-65% with mild concentric left ventricular hypertrophy, mildly dilated left atrium, transmitral mean gradient of 10 mmHg at a heart rate of 95 bpm, moderate to severe tricuspid regurgitation and moderate pulmonary valve regurgitation. Patient claims that after she went home slowly she started getting swelling in her legs and increased shortness of breath. She has chronic respiratory failure at baseline and is on oxygen 24 hours a day at home. She claims that she has been compliant with her medication schedule. She recently went to see her convention services manager who referred her to admission to the hospital. She denies any fever or cough or cold. She does have chronic redness of the skin on both her legs which is now better per patient. No complaint of chest pain or palpitations or dizziness. She also has chronic anemia and claims that she has had GI workup in the past which was negative for GI bleeding. She denies any black stools or bleeding per rectum. Past Medical History Cardiac Medical History: Reports: Congestive Heart Failure, Coronary Artery Disease, Myocardial Infarction, Hypertension, Peripheral Vascular Disease Pulmonary Medical History: Reports: Asthma, Chronic Obstructive Pulmonary Disease (COPD) Neurological Medical History: Denies: Seizures Endocrine Medical History: Reports: Diabetes Mellitus Type 2 - with neuropathy Renal/ Medical History: Reports: Chronic Kidney Disease GI Medical History: Reports: Gastroesophageal Reflux Disease Denies: Hepatitis, Hiatal Hernia Musculoskeltal Medical History: Reports: Arthritis Hematology: Reports: Anemia Past Surgical History Past Surgical History: Reports: Cardiac Catheterization, Cholecystectomy, Coronary Artery Bypass Graft, Hysterectomy, Tubal Ligation, Other - Mitral valve repair, cataract surgery Social History Lives with: Family Smoking Status: Former Smoker Frequency of Alcohol Use: None Hx Recreational Drug Use: No Drugs: None Hx Prescription Drug Abuse: No - Advance Directive Resuscitation Status: Full Code Family History Family History: CAD, DM, Hypertension Parental Family History Reviewed: Yes Children Family History Reviewed: Yes Sibling(s) Family History Reviewed.: Yes Medication/Allergy Allergies/Adverse Reactions: Sulfa (Sulfonamide Antibiotics) Allergy (Intermediate, Verified 05/26/17 12:14) Hives Review of Systems Constitutional: PRESENT: weight gain Cardiovascular: PRESENT: edema, orthropnea Respiratory: PRESENT: dyspnea Physical Exam Vital Signs: Temp Pulse Resp BP Pulse Ox 98.6 F 85 18 103/42 L 97 05/27/17 07:53 05/27/17 07:53 05/27/17 07:53 05/27/17 07:53 05/27/17 07:53 Intake & Output 05/26/17 05/27/17 05/28/17 06:59 06:59 06:59 Intake Total 225 Output Total 4500 Balance -4275 Weight 78.5 kg General appearance: PRESENT: mild distress Mouth exam: PRESENT: neck supple Neck exam: PRESENT: JVD Respiratory exam: PRESENT: crackles Cardiovascular exam: PRESENT: diastolic murmur Rectal exam: PRESENT: deferred Extremities exam: PRESENT: pedal edema Neurological exam: PRESENT: alert, oriented to time, oriented to situation Skin exam: PRESENT: other - Mild erythema both lower extremities. Results Laboratory Results: 05/27/17 02:40 05/27/17 02:40 05/27/17 05/27/17 05/27/17 02:40 02:40 02:40 WBC 6.5 RBC 2.85 L Hgb 8.1 L Hct 24.5 L MCV 86 MCH 28.5 MCHC 33.2 RDW 18.5 H Plt Count 264 Seg Neutrophils % 77.5 Lymphocytes % 13.3 Monocytes % 6.5 Eosinophils % 2.0 Basophils % 0.7 Absolute Neutrophils 5.1 Absolute Lymphocytes 0.9 Absolute Monocytes 0.4 Absolute Eosinophils 0.1 Absolute Basophils 0.0 Retic Count (auto) 2.00 Absolute Retic 0.057 Sodium 138.0 Potassium 4.5 D Chloride 103 Carbon Dioxide 28 Anion Gap 7 BUN 36 H Creatinine 1.93 H Est GFR ( Amer) 31 L Est GFR (Non-Af Amer) 26 L Glucose 86 Calcium 8.9 Magnesium 2.0 Iron < 10.1 L TIBC 328 % Saturation UNABLE TO CALCULATE Ferritin 86.20 Vitamin B12 400.0 Folate 11.50 TSH 0.65 05/26/17 05/26/17 05/27/17 14:37 20:10 02:40 Troponin I < 0.012 < 0.012 < 0.012 NT-Pro-B Natriuret Pep 05/27/17 02:40 Troponin I NT-Pro-B Natriuret Pep [id number] H EKG Comments: EKG shows sinus rhythm, poor R-wave progression, LVH with secondary repolarization changes. Impressions: Chest X-Ray 05/26/17 12:30 IMPRESSION: Constellation of findings consistent with clinically suspected CHF exacerbation. Status: Image reviewed by me Assessment & Plan - Diagnosis (1) Acute on chronic diastolic heart failure Is this a current diagnosis for this admission?: Yes (2) CAD (coronary artery disease) Qualifiers: Coronary Disease-Associated Artery/Lesion type: [place] artery [place] vs. transplanted heart: [place] heart Associated angina: without angina Qualified Code(s): I25.10 - Atherosclerotic heart disease of [place] coronary artery without angina pectoris (3) S/P MVR (mitral valve repair) Is this a current diagnosis for this admission?: Yes (5) COPD (chronic obstructive pulmonary disease) Qualifiers: COPD type: unspecified COPD Qualified Code(s): J44.9 - Chronic obstructive pulmonary disease, unspecified Is this a current diagnosis for this admission?: Yes (6) Anemia Qualifiers: Anemia type: due to chronic kidney disease Chronic kidney disease stage: stage 4 (severe) Qualified Code(s): N18.4 - Chronic kidney disease, stage 4 ( severe); D63.1 - Anemia in chronic kidney disease; D63.1 - Anemia in chronic kidney disease Is this a current diagnosis for this admission?: Yes - Notes Notes: Patient with volume excess on exam and we agree with IV Lasix along with close monitoring of intake/output. Reviewed her intake and output and so far patient has put out 4875 mL of urine on current Lasix dose. We have discussed her recent transthoracic echocardiogram with patient's CT surgeon recently and plan was to get an outpatient BOGDAN at some point to reevaluate transmitral gradients to assess for mitral stenosis. Patient with multiple comorbidities including COPD on home oxygen, chronic kidney disease, anemia which all could contribute to her shortness of breath and these factors also make her high risk for any valvular surgery in the future. At this time we would initially work on getting her volume status corrected with IV diuretic therapy and when she is more euvolemic will consider switching her to oral bumetanide instead of furosemide for better bioavailability. Continue her statin and beta-cece therapy. Will reevaluate her volume status tomorrow. No anginal symptoms at this time to warrant any ischemia workup. Discussed plan of care with primary team as well as patient and her family. - Time Time Spent: 50 to 70 Minutes
[2017-05-27] MEDS: CARVEDILOL 6.25 MG TABLET PO SCH (14:13)
--- NOTE | 2017-05-27 15:39 | PDOC PROGRESS REPORT ---
Subjective Progress Note for:: 05/27/17 Subjective:: Patient complains of shortness of breath for close to a month. She sees Dr Shaw and was supposed to have an appointment with him on Monday. Review of systems All organ systems evaluated and negative except in subjective All significant diagnostics and laboratories have been reviewed Reason For Visit: ACUTE ON CHRONIC HEART FAILURE Physical Exam Vital Signs: Temp Pulse Resp BP Pulse Ox 98.6 F 82 18 130/64 H 96 05/27/17 04:04 05/27/17 04:04 05/27/17 04:04 05/27/17 04:04 05/27/17 04:04 Intake & Output 05/26/17 05/27/17 05/28/17 06:59 06:59 06:59 Intake Total 225 Output Total 4500 Balance -4275 Weight 78.5 kg General appearance: PRESENT: cooperative, mild distress Head exam: PRESENT: atraumatic, normocephalic Eye exam: PRESENT: conjunctiva pink, EOMI, PERRLA Neck exam: PRESENT: full ROM. ABSENT: JVD, lymphadenopathy, tenderness Respiratory exam: PRESENT: crackles, decreased breath sounds Cardiovascular exam: PRESENT: RRR. ABSENT: diastolic murmur, systolic murmur Vascular exam: PRESENT: normal capillary refill GI/Abdominal exam: PRESENT: normal bowel sounds, soft. ABSENT: tenderness Extremities exam: PRESENT: full ROM Musculoskeletal exam: PRESENT: ambulatory - 3+ edema Neurological exam: PRESENT: alert, awake, oriented to person, oriented to place , oriented to time, oriented to situation, CN II-XII grossly intact Psychiatric exam: PRESENT: appropriate affect, normal mood Skin exam: PRESENT: intact, normal color Results Laboratory Results: 05/27/17 02:40 05/27/17 02:40 05/27/17 05/27/17 05/27/17 02:40 02:40 02:40 WBC 6.5 RBC 2.85 L Hgb 8.1 L Hct 24.5 L MCV 86 MCH 28.5 MCHC 33.2 RDW 18.5 H Plt Count 264 Seg Neutrophils % 77.5 Lymphocytes % 13.3 Monocytes % 6.5 Eosinophils % 2.0 Basophils % 0.7 Absolute Neutrophils 5.1 Absolute Lymphocytes 0.9 Absolute Monocytes 0.4 Absolute Eosinophils 0.1 Absolute Basophils 0.0 Retic Count (auto) 2.00 Absolute Retic 0.057 Sodium 138.0 Potassium 4.5 D Chloride 103 Carbon Dioxide 28 Anion Gap 7 BUN 36 H Creatinine 1.93 H Est GFR ( Amer) 31 L Est GFR (Non-Af Amer) 26 L Glucose 86 Calcium 8.9 Magnesium 2.0 Iron < 10.1 L TIBC 328 % Saturation UNABLE TO CALCULATE Ferritin 86.20 Vitamin B12 400.0 Folate 11.50 TSH 0.65 05/26/17 05/26/17 05/27/17 14:37 20:10 02:40 Troponin I < 0.012 < 0.012 < 0.012 NT-Pro-B Natriuret Pep 05/27/17 02:40 Troponin I NT-Pro-B Natriuret Pep [id number] H Impressions: Chest X-Ray 05/26/17 12:30 IMPRESSION: Constellation of findings consistent with clinically suspected CHF exacerbation. Assessment & Plan - Diagnosis (1) Acute on chronic diastolic heart failure Is this a current diagnosis for this admission?: Yes Plan: Continue present management and appreciate Dr. Shaw's input (2) Chronic respiratory failure Qualifiers: Respiratory failure complication: hypoxia Qualified Code(s): J96.11 - Chronic respiratory failure with hypoxia Is this a current diagnosis for this admission?: Yes Plan: Continue oxygen supplementation (3) History of mitral valve repair Is this a current diagnosis for this admission?: Yes Plan: Patient now may be having problems with mitral stenosis (4) Anemia Qualifiers: Anemia type: due to chronic kidney disease Chronic kidney disease stage: stage 4 (severe) Qualified Code(s): N18.4 - Chronic kidney disease, stage 4 ( severe); D63.1 - Anemia in chronic kidney disease; D63.1 - Anemia in chronic kidney disease Is this a current diagnosis for this admission?: Yes Plan: Will trend (5) COPD (chronic obstructive pulmonary disease) Qualifiers: COPD type: unspecified COPD Qualified Code(s): J44.9 - Chronic obstructive pulmonary disease, unspecified Is this a current diagnosis for this admission?: Yes Plan: Will add Advair and Spiriva to her regimen (6) CKD (chronic kidney disease), stage IV Is this a current diagnosis for this admission?: Yes Plan: Will continue monitoring to see if there is an acute component - Time Time Spent with patient: 15-24 minutes Medications reviewed and adjusted accordingly: Yes Anticipated discharge: Home with Homehealth Within: within 72 hours - Inpatient Certification Based on my medical assessment, after consideration of the patient's comorbidities, presenting symptoms, or acuity I expect that the services needed warrant INPATIENT care.: Yes I certify that my determination is in accordance with my understanding of Medicare's requirements for reasonable and necessary INPATIENT services [42 CFR 412.3e].: Yes Medical Necessity: Need Close Monitoring Due to Risk of Patient Decompensation, Need For Continuous Telemetry Monitoring
[2017-05-27] MEDS ORDERED: FERUMOXYTOL 510 MG in NORMAL SALINE 100 ML IV ONE (17:34)
--- NOTE | 2017-05-27 17:47 | PDOC CONSULTATION ---
Consultation Consult Date: 05/27/17 Consult reason:: GITA in CHF History of Present Illness Admission Date/PCP: 05/26/17 14:24 NO LOCALMD History of Present Illness: Marianela Lyn is a 71-year-old female with past medical history of Diabetes, Hypertension, CKD 3/4 with base creatinine of around 2-2.5, coronary artery disease status post coronary artery bypass grafting on 07/20/2016 and also status post mitral valve repair, COPD on home oxygen, was admitted with acute on chronic shortness of breath along with swelling of her lower extremities. I saw this patient for the very first time in my office yesterday and she was in decompensated CHF and was advised admission. She has responded very well to medications especially after diuresis of approx 5 L. She was just released from [facility] after a similar admission and was drained of approx 25 L, a few days ago.She says she just gained all of that back within a week or so post discharge. has severe exertional dyspnea with some difficulty on talking as well ,but no orthopnea. No chest pains.Compliant with meds, but on high na diet. She was on continuous O2 ? from COPD or CHF or combined perspective. Patient had a transthoracic echocardiogram done in April 2017 which showed preserved LV ejection fraction of 60-65% with mild concentric left ventricular hypertrophy, mildly dilated left atrium, transmitral mean gradient of 10 mm Hg at a heart rate of 95 bpm, moderate to severe tricuspid regurgitation and moderate pulmonary valve regurgitation. Today she is c/o generalised myalgia and tenderness of her large muscles.Shehas chronic redness her edematous legs without any fever or chills. Her sugars are not well controlled. She is on no ADA or Cardio - renal diet. No complaint of chest pain or palpitations or dizziness. She also has chronic anemia and claims that she has had GI workup in the past which was negative for GI bleeding. She denies any GI bleeding. Labs and meds were reviewed and discussions were done with her treating CARIN No. Past Medical History Cardiac Medical History: Reports: Coronary Artery Disease, Hypertension-primary , Myocardial Infarction, Peripheral Vascular Disease Pulmonary Medical History: Reports: Asthma, Chronic Obstructive Pulmonary Disease (COPD) Neurological Medical History: Denies: Seizures Endocrine Medical History: Reports: Diabetes Mellitus Type 2 - with neuropathy Renal/ Medical History: Reports: Chronic Kidney Disease Stage IV GI Medical History: Reports: Gastroesophageal Reflux Disease Denies: Hepatitis, Hiatal Hernia Musculoskeltal Medical History: Reports: Arthritis Hematology Medical History: Reports Anemia Past Surgical History Past Surgical History: Reports: Cardiac Catheterization, Cholecystectomy, Coronary Artery Bypass Graft, Hysterectomy, Tubal Ligation, Other - Mitral valve repair, cataract surgery Social History Lives with: Family Smoking Status: Former Smoker Frequency of Alcohol Use: None Hx Recreational Drug Use: No Drugs: None Hx Prescription Drug Abuse: No - Advance Directive Resuscitation Status: Full Code Family History Parental Family History Reviewed: Yes - negative for ESRD Children Family History Reviewed: No Sibling(s) Family History Reviewed.: No Medication/Allergy Home Medications: Aspirin [Aspirin EC] 81 mg PO DAILY 05/27/17 Atorvastatin Calcium [Lipitor 80 mg Tablet] 80 mg PO QHS 05/27/17 Carvedilol [Coreg 3.125 mg Tablet] 3.125 mg PO Q12 05/27/17 Clopidogrel Bisulfate [Plavix 75 mg Tablet] 75 mg PO DAILY 05/27/17 Ergocalciferol (Vitamin D2) [Vitamin D2] 50,000 unit PO Q7D 05/27/17 Furosemide [Lasix 80 mg Tablet] 80 mg PO QAM 05/27/17 Gabapentin [Neurontin] 800 mg PO Q8 05/27/17 Glipizide [Glocotrol 5 Mg Tablet] 2.5 mg PO DAILY 05/27/17 Metolazone [Zaroxolyn 2.5 Mg Tablet] 2.5 mg PO DAILY 05/27/17 Oxycodone HCl/Acetaminophen [Percocet 5-325 mg Tablet] 1 tab PO Q6HP PRN Pantoprazole Sodium [Protonix] 40 mg PO DAILY 05/27/17 Potassium Chloride [Klor-Con M20] 20 meq PO DAILY 05/27/17 Tramadol HCl [Ultram 50 mg Tablet] 50 mg PO Q8HP PRN 05/27/17 Allergies/Adverse Reactions: Sulfa (Sulfonamide Antibiotics) Allergy (Intermediate, Verified 05/26/17 12:14) Hives Review of Systems All systems: reviewed and no additional remarkable complaints except as stated Constitutional: PRESENT: weakness. ABSENT: fever(s), headache(s) Nose, Mouth, and Throat: ABSENT: mouth pain, sore throat Cardiovascular: PRESENT: dyspnea on exertion, edema. ABSENT: chest pain, orthropnea, palpitations Respiratory: ABSENT: cough, hemoptysis Gastrointestinal: PRESENT: diarrhea. ABSENT: abdominal pain, coffee ground emesis, heartburn, hematemesis, hematochezia, nausea, vomiting Musculoskeletal: ABSENT: joint swelling Integumentary: ABSENT: lesions, pruritus Neurological: ABSENT: focal weakness, frequent falls, syncope Hematologic/Lymphatic: ABSENT: easy bruising, lymphadenopathy Physical Exam Vital Signs: Temp Pulse Resp BP Pulse Ox 98.8 F 84 18 142/64 H 99 05/27/17 15:43 05/27/17 15:43 05/27/17 15:43 05/27/17 15:43 05/27/17 15:43 Intake & Output 05/26/17 05/27/17 05/28/17 06:59 06:59 06:59 Intake Total 225 Output Total 4500 Balance -4275 Weight 78.5 kg General appearance: PRESENT: mild distress Eye exam: PRESENT: conjunctiva pale, EOMI, PERRLA. ABSENT: conjunctiva pink, scleral icterus Ear exam: PRESENT: normal external ear exam Mouth exam: PRESENT: neck supple Respiratory exam: PRESENT: clear to auscultation gita, symmetrical, tachypnea. ABSENT: crackles Cardiovascular exam: PRESENT: +S1, +S2, systolic murmur GI/Abdominal exam: PRESENT: soft. ABSENT: mass, organomegaly, tenderness Extremities exam: PRESENT: +2 edema. ABSENT: calf tenderness, clubbing Neurological exam: PRESENT: awake, oriented to person, oriented to place Skin exam: PRESENT: erythema - over her edematous legs but not sugestive of cellulitis.. ABSENT: cyanosis Results Laboratory Results: 05/27/17 02:40 05/27/17 02:40 05/27/17 05/27/17 05/27/17 02:40 02:40 02:40 WBC 6.5 RBC 2.85 L Hgb 8.1 L Hct 24.5 L MCV 86 MCH 28.5 MCHC 33.2 RDW 18.5 H Plt Count 264 Seg Neutrophils % 77.5 Lymphocytes % 13.3 Monocytes % 6.5 Eosinophils % 2.0 Basophils % 0.7 Absolute Neutrophils 5.1 Absolute Lymphocytes 0.9 Absolute Monocytes 0.4 Absolute Eosinophils 0.1 Absolute Basophils 0.0 Retic Count (auto) 2.00 Absolute Retic 0.057 Sodium 138.0 Potassium 4.5 D Chloride 103 Carbon Dioxide 28 Anion Gap 7 BUN 36 H Creatinine 1.93 H Est GFR ( Amer) 31 L Est GFR (Non-Af Amer) 26 L Glucose 86 Calcium 8.9 Magnesium 2.0 Iron < 10.1 L TIBC 328 % Saturation UNABLE TO CALCULATE Ferritin 86.20 Vitamin B12 400.0 Folate 11.50 TSH 0.65 05/26/17 05/26/17 05/27/17 14:37 20:10 02:40 Troponin I < 0.012 < 0.012 < 0.012 NT-Pro-B Natriuret Pep 05/27/17 02:40 Troponin I NT-Pro-B Natriuret Pep [id number] H Impressions: Chest X-Ray 05/26/17 12:30 IMPRESSION: Constellation of findings consistent with clinically suspected CHF exacerbation. Assessment & Plan - Diagnosis (1) Acute on chronic diastolic heart failure Is this a current diagnosis for this admission?: Yes Plan: Yesterday when I saw her in my office her JVD was elevated and she had fine rales to her midzone and these findings are gone as of today.She is not dyspneic while talking and she is able to talk long sentences. She has responded very well to measures instituted yesterday. (2) Acute renal insufficiency Plan: She has diabetic nephropathy and her added insults from Pre renal CHF. She has done well renally to the diuresis. Another insult that need looking into is whether she has a component of Rhabdomyolysis. I am going to hold off the Lipitor while getting confirmatory tests.Also order renal US. (3) CAD (coronary artery disease) Qualifiers: Coronary Disease-Associated Artery/Lesion type: [place] artery [place] vs. transplanted heart: [place] heart Associated angina: without angina Qualified Code(s): I25.10 - Atherosclerotic heart disease of [place] coronary artery without angina pectoris Plan: Currently inactive. (4) CKD (chronic kidney disease), stage IV Is this a current diagnosis for this admission?: Yes (5) COPD (chronic obstructive pulmonary disease) Qualifiers: COPD type: unspecified COPD Qualified Code(s): J44.9 - Chronic obstructive pulmonary disease, unspecified Is this a current diagnosis for this admission?: Yes Plan: Has been on continous O2. (6) S/P MVR (mitral valve repair) Is this a current diagnosis for this admission?: Yes Plan: As per cardiology. 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 (8) Iron deficiency anemia Plan: Plan IV Iron which will especially help her cardiac muscles. Adv her on the risks/benefits of IV Iron including severe anaphylaxis and she is willing to proceed. (9) Myalgia Plan: Likely acute Rhabdomyolysis from Lipitor.Will hold off Lipitor for now and get confirmatory testings. (10) Hypertension Plan: She is currently low normal. Isee that hospitalist has dadded Mididdrine. I had cut abck on the coreg from 25 to 6.25 yesterday but will cut back to 3.125 and at the same time cut abck on midodrine to 2.15 and monitor. Her Latest systolic BP was 140 and so caution with the midodrine. I would get her coreg back up if her ssytolic starts to pear picker and stop the midodrine.
[2017-05-27 18:48] LABS: APPEARANCE,URINE CLEAR; BILIRUBIN,URINE NEGATIVE (NEGATIVE); COLOR,URINE STRAW; GLUCOSE, URINE 50 mg/dL (NEGATIVE); KETONES,URINE NEGATIVE (NEGATIVE); LEUKOCYTE ESTERASE,URINE NEGATIVE (NEGATIVE); NITRITE,URINE NEGATIVE (NEGATIVE); PROTEIN,URINE 100 mg/dL (NEGATIVE); URINE SPECIFIC GRAVITY 1.009; UROBILINOGEN,URINE NEGATIVE mg/dL (<2.0)
[2017-05-27] MEDS ORDERED: FERUMOXYTOL (NESRD) 510 MG/17 ML VIAL IV ONE (19:07)
[2017-05-27] MEDS ORDERED: CARVEDILOL 6.25 MG TABLET PO SCH (22:00)
[2017-05-27] MEDS: FLUTICASONE/SALMETEROL DISKUS 500-50 MCG/DOSE IH SCH (22:24)
[2017-05-28 04:48] LABS: ABSOLUTE BASOPHILS # (AUTO) 0.1 10^3/uL (0.0-0.2); ABSOLUTE EOSINOPHILS # (AUTO) 0.2 10^3/uL (0.0-0.6); ABSOLUTE LYMPHOCYTES (AUTO) 1.2 10^3/uL (0.5-4.7); ABSOLUTE MONOCYTES (AUTO) 0.5 10^3/uL (0.1-1.4); ABSOLUTE NEUT (AUTO) 4.6 10^3/uL (1.7-8.2); BASOPHILS % (AUTO) 0.8 % (0-2); EOSINOPHILS % (AUTO) 2.4 % (0-6); HEMATOCRIT 23.9 % (36.0-47.0); LYMPHOCYTES % (AUTO) 18.9 % (13-45); MEAN CORPUSCULAR HGB CONC 33.7 g/dL (32.0-36.0); MEAN CORPUSCULAR VOLUME 86 fl (80-97); MONOCYTES % (AUTO) 8.2 % (3-13); PLATELET COUNT 248 10^3/uL (150-450); RED BLOOD COUNT 2.78 10^6/uL (3.72-5.28); SEGMENTED NEUTROPHILS % (AUTO) 69.7 % (42-78); TOTAL CELLS COUNTED % (AUTO) 100 %; WHITE BLOOD COUNT 6.6 10^3/uL (4.0-10.5)
[2017-05-28 05:07] LABS: ANION GAP 6 (5-19); BLOOD UREA NITROGEN 38 mg/dL (7-20); CARBON DIOXIDE 32 mmol/L (22-30); CHLORIDE 101 mmol/L (98-107); GLUCOSE 45 mg/dL (75-110); POTASSIUM 3.7 mmol/L (3.6-5.0); SODIUM 139.1 mmol/L (137-145)
[2017-05-28] MEDS ORDERED: NORMAL SALINE 250 ML IV PRN ×2 (06:32)
[2017-05-28] MEDS: FLUTICASONE/SALMETEROL DISKUS 500-50 MCG/DOSE IH SCH ×2 (09:44→21:12)
[2017-05-28] MEDS: TIOTROPIUM BROMIDE DPI 5 CAP/KIT (18 MCG/CAP) IH SCH (09:45)
[2017-05-28] MEDS: ASPIRIN 81 MG TABLET, ENT COATED PO SCH (09:46)
[2017-05-28] MEDS: GLIPIZIDE 10 MG TABLET PO SCH ×2 (09:46→21:12)
[2017-05-28] MEDS: CLOPIDOGREL BISULFATE 75 MG TABLET PO SCH (09:46)
[2017-05-28] MEDS: MIDODRINE HCL 5 MG TABLET PO SCH ×3 (09:47→17:43)
[2017-05-28] MEDS: FUROSEMIDE INJ/PF 40 MG/4 ML SDV IV SCH (09:49)
[2017-05-28] MEDS: DOCUSATE SODIUM 100 MG CAPSULE PO SCH (09:51)
--- NOTE | 2017-05-28 10:06 | PDOC PROGRESS REPORT ---
Subjective Progress Note for:: 05/28/17 Subjective:: Patient feels much better and claims her leg swelling is decreasing. No complaint of chest pain or dizziness or palpitations. Reason For Visit: ACUTE ON CHRONIC HEART FAILURE Physical Exam Vital Signs: Temp Pulse Resp BP Pulse Ox 97.8 F 84 20 121/71 96 05/28/17 07:50 05/28/17 07:50 05/28/17 07:50 05/28/17 07:50 05/28/17 07:50 Intake & Output 05/27/17 05/28/17 05/29/17 06:59 06:59 06:59 Intake Total 225 1281 Output Total 4500 8660 Balance -3246 -8618 Weight 78.5 kg 76.3 kg General appearance: PRESENT: no acute distress Respiratory exam: PRESENT: clear to auscultation gita Cardiovascular exam: PRESENT: diastolic murmur Pulses: PRESENT: +2 pedal pulses bilateral Extremities exam: PRESENT: pedal edema Additional comments: Bilateral lower extremity erythema present. No local increase in skin temperature. Results Laboratory Results: 05/28/17 04:36 05/28/17 04:36 05/27/17 05/28/17 05/28/17 17:40 04:36 04:36 WBC 6.6 RBC 2.78 L Hgb 8.0 L Hct 23.9 L MCV 86 MCH 29.0 MCHC 33.7 RDW 18.0 H Plt Count 248 Seg Neutrophils % 69.7 Lymphocytes % 18.9 Monocytes % 8.2 Eosinophils % 2.4 Basophils % 0.8 Absolute Neutrophils 4.6 Absolute Lymphocytes 1.2 Absolute Monocytes 0.5 Absolute Eosinophils 0.2 Absolute Basophils 0.1 Sodium 139.1 Potassium 3.7 Chloride 101 Carbon Dioxide 32 H Anion Gap 6 BUN 38 H Creatinine 1.99 H Est GFR ( Amer) 30 L Est GFR (Non-Af Amer) 25 L Glucose 45 L Calcium 9.0 Magnesium 1.9 Urine Color STRAW Urine Appearance CLEAR Urine pH 7.0 Ur Specific [place] 1.009 Urine Protein 100 H Urine Glucose (UA) 50 H Urine Ketones NEGATIVE Urine Blood SMALL H Urine Nitrite NEGATIVE Ur Leukocyte Esterase NEGATIVE Urine WBC (Auto) 0 Urine RBC (Auto) 11 Blood Type Antibody Screen 05/28/17 06:54 WBC RBC Hgb Hct MCV MCH MCHC RDW Plt Count Seg Neutrophils % Lymphocytes % Monocytes % Eosinophils % Basophils % Absolute Neutrophils Absolute Lymphocytes Absolute Monocytes Absolute Eosinophils Absolute Basophils Sodium Potassium Chloride Carbon Dioxide Anion Gap BUN Creatinine Est GFR ( Amer) Est GFR (Non-Af Amer) Glucose Calcium Magnesium Urine Color Urine Appearance Urine pH Ur Specific [place] Urine Protein Urine Glucose (UA) Urine Ketones Urine Blood Urine Nitrite Ur Leukocyte Esterase Urine WBC (Auto) Urine RBC (Auto) Blood Type A POSITIVE Antibody Screen NEGATIVE 05/26/17 05/26/17 05/27/17 14:37 20:10 02:40 Creatine Kinase CK-MB (CK-2) Troponin I < 0.012 < 0.012 < 0.012 NT-Pro-B Natriuret Pep 05/27/17 05/27/17 05/28/17 02:40 02:40 04:36 Creatine Kinase 202 H CK-MB (CK-2) 0.59 Troponin I NT-Pro-B Natriuret Pep [id number] H Impressions: Chest X-Ray 05/26/17 12:30 IMPRESSION: Constellation of findings consistent with clinically suspected CHF exacerbation. Assessment & Plan - Diagnosis (1) Acute on chronic diastolic heart failure Is this a current diagnosis for this admission?: Yes (2) CAD (coronary artery disease) Qualifiers: Coronary Disease-Associated Artery/Lesion type: [place] artery [place] vs. transplanted heart: [place] heart Associated angina: without angina Qualified Code(s): I25.10 - Atherosclerotic heart disease of [place] coronary artery without angina pectoris (3) S/P MVR (mitral valve repair) Is this a current diagnosis for this admission?: Yes (4) CKD (chronic kidney disease), stage IV Is this a current diagnosis for this admission?: Yes (5) COPD (chronic obstructive pulmonary disease) Qualifiers: COPD type: unspecified COPD Qualified Code(s): J44.9 - Chronic obstructive pulmonary disease, unspecified Is this a current diagnosis for this admission?: Yes (6) Anemia Qualifiers: Anemia type: due to chronic kidney disease Chronic kidney disease stage: stage 4 (severe) Qualified Code(s): N18.4 - Chronic kidney disease, stage 4 ( severe); D63.1 - Anemia in chronic kidney disease; D63.1 - Anemia in chronic kidney disease Is this a current diagnosis for this admission?: Yes - Notes Notes: Patient's volume status appears to be improving on physical exam and last 24 hours patient was -2.5 L. Would continue with IV diuretic for another day or 2 to try and get to her dry weight which is likely around 74 kg. Noted decrease in beta-cece dose and addition of midodrine and discuss with primary team this morning on possibly discontinuation of midodrine therapy. Would recommend a 24 hour observation of the patient upon switch to oral diuretic to ensure euvolemic state before discharge. Would recommend patient be switched to oral bumetanide initially at a dose of 2 mg in the morning and 1 mg in the afternoon. Would also request to repeat a basic metabolic panel before discharge to check for any potassium supplement requirements as might be needed. Appreciate nephrology input. Will see patient as an outpatient in 2-3 weeks after discharge and then plan B[facility]DAN as an outpatient. - Time Time with patient: 15-25 minutes
[2017-05-28] MEDS ORDERED: CARVEDILOL 3.125 MG TABLET PO ONE (11:15)
[2017-05-28] MEDS ORDERED: BUMETANIDE INJ/PF 1 MG/4 ML SDV IV ONE (13:00)
--- NOTE | 2017-05-28 13:33 | PDOC PROGRESS REPORT ---
Subjective Progress Note for:: 05/28/17 Subjective:: Patient relates that her shortness of breath is better with the inhalers that have been order. Patient also states that the swelling on yaima legs also getting better. Dr. Alfred contacted the author and recommended for patient to be discharged on Bumex twice a day. Review of systems All organ systems evaluated and negative except in subjective All significant diagnostics and laboratories have been reviewed Reason For Visit: ACUTE ON CHRONIC HEART FAILURE Physical Exam Vital Signs: Temp Pulse Resp BP Pulse Ox 98.3 F 78 18 127/84 H 100 05/28/17 12:04 05/28/17 12:04 05/28/17 12:04 05/28/17 12:04 05/28/17 12:04 Intake & Output 05/27/17 05/28/17 05/29/17 06:59 06:59 06:59 Intake Total 225 1281 0 Output Total 4500 3850 Balance -4275 -2569 0 Weight 78.5 kg 76.3 kg General appearance: PRESENT: no acute distress, cooperative, well-developed, well-nourished Head exam: PRESENT: atraumatic, normocephalic Eye exam: PRESENT: conjunctiva pink, EOMI, PERRLA Mouth exam: PRESENT: moist Neck exam: PRESENT: full ROM. ABSENT: JVD, lymphadenopathy, tenderness Respiratory exam: PRESENT: other - Adequate movement of air with scattered crackles. ABSENT: tachypnea, unlabored Cardiovascular exam: PRESENT: RRR, systolic murmur. ABSENT: diastolic murmur Vascular exam: PRESENT: normal capillary refill GI/Abdominal exam: PRESENT: normal bowel sounds, soft. ABSENT: tenderness Extremities exam: PRESENT: full ROM, +2 edema Musculoskeletal exam: PRESENT: ambulatory Neurological exam: PRESENT: alert, awake, oriented to person, oriented to place , oriented to time, oriented to situation, CN II-XII grossly intact Psychiatric exam: PRESENT: appropriate affect, normal mood Skin exam: PRESENT: intact, normal color Results Laboratory Results: 05/28/17 04:36 05/28/17 04:36 05/27/17 05/28/17 05/28/17 17:40 04:36 04:36 WBC 6.6 RBC 2.78 L Hgb 8.0 L Hct 23.9 L MCV 86 MCH 29.0 MCHC 33.7 RDW 18.0 H Plt Count 248 Seg Neutrophils % 69.7 Lymphocytes % 18.9 Monocytes % 8.2 Eosinophils % 2.4 Basophils % 0.8 Absolute Neutrophils 4.6 Absolute Lymphocytes 1.2 Absolute Monocytes 0.5 Absolute Eosinophils 0.2 Absolute Basophils 0.1 Sodium 139.1 Potassium 3.7 Chloride 101 Carbon Dioxide 32 H Anion Gap 6 BUN 38 H Creatinine 1.99 H Est GFR ( Amer) 30 L Est GFR (Non-Af Amer) 25 L Glucose 45 L Calcium 9.0 Magnesium 1.9 Urine Color STRAW Urine Appearance CLEAR Urine pH 7.0 Ur Specific [place] 1.009 Urine Protein 100 H Urine Glucose (UA) 50 H Urine Ketones NEGATIVE Urine Blood SMALL H Urine Nitrite NEGATIVE Ur Leukocyte Esterase NEGATIVE Urine WBC (Auto) 0 Urine RBC (Auto) 11 Blood Type Antibody Screen 05/28/17 06:54 WBC RBC Hgb Hct MCV MCH MCHC RDW Plt Count Seg Neutrophils % Lymphocytes % Monocytes % Eosinophils % Basophils % Absolute Neutrophils Absolute Lymphocytes Absolute Monocytes Absolute Eosinophils Absolute Basophils Sodium Potassium Chloride Carbon Dioxide Anion Gap BUN Creatinine Est GFR ( Amer) Est GFR (Non-Af Amer) Glucose Calcium Magnesium Urine Color Urine Appearance Urine pH Ur Specific [place] Urine Protein Urine Glucose (UA) Urine Ketones Urine Blood Urine Nitrite Ur Leukocyte Esterase Urine WBC (Auto) Urine RBC (Auto) Blood Type A POSITIVE Antibody Screen NEGATIVE 05/26/17 05/26/17 05/27/17 14:37 20:10 02:40 Creatine Kinase CK-MB (CK-2) Troponin I < 0.012 < 0.012 < 0.012 NT-Pro-B Natriuret Pep 05/27/17 05/27/17 05/28/17 02:40 02:40 04:36 Creatine Kinase 202 H CK-MB (CK-2) 0.59 Troponin I NT-Pro-B Natriuret Pep [id number] H Impressions: Chest X-Ray 05/26/17 12:30 IMPRESSION: Constellation of findings consistent with clinically suspected CHF exacerbation. Assessment & Plan - Diagnosis (1) Acute on chronic diastolic heart failure Is this a current diagnosis for this admission?: Yes Plan: Will change to Bumex IV. Will continue with Midodrine for now. Will add low- dose hydralazine (2) Chronic respiratory failure Qualifiers: Respiratory failure complication: hypoxia Qualified Code(s): J96.11 - Chronic respiratory failure with hypoxia Is this a current diagnosis for this admission?: Yes Plan: Continue oxygen supplementation (3) History of mitral valve repair Is this a current diagnosis for this admission?: Yes Plan: Patient now may be having problems with mitral stenosis (4) Anemia Qualifiers: Anemia type: due to chronic kidney disease Chronic kidney disease stage: stage 4 (severe) Qualified Code(s): N18.4 - Chronic kidney disease, stage 4 ( severe); D63.1 - Anemia in chronic kidney disease; D63.1 - Anemia in chronic kidney disease Is this a current diagnosis for this admission?: Yes Plan: Will transfuse 1 unit of packed red blood cell patient amenable to treatment (5) COPD (chronic obstructive pulmonary disease) Qualifiers: COPD type: unspecified COPD Qualified Code(s): J44.9 - Chronic obstructive pulmonary disease, unspecified Is this a current diagnosis for this admission?: Yes Plan: Continue Advair and Spiriva (6) CKD (chronic kidney disease), stage IV Is this a current diagnosis for this admission?: Yes Plan: Stable - Time Time Spent with patient: 15-24 minutes Medications reviewed and adjusted accordingly: Yes Anticipated discharge: Home with Homehealth Within: within 48 hours - Inpatient Certification Based on my medical assessment, after consideration of the patient's comorbidities, presenting symptoms, or acuity I expect that the services needed warrant INPATIENT care.: Yes I certify that my determination is in accordance with my understanding of Medicare's requirements for reasonable and necessary INPATIENT services [42 CFR 412.3e].: Yes Medical Necessity: Need Close Monitoring Due to Risk of Patient Decompensation, Need For Continuous Telemetry Monitoring
[2017-05-28] MEDS: HYDRALAZINE HCL 10 MG TABLET PO SCH ×2 (13:38→21:12)
[2017-05-28 16:16] LABS: ABSOLUTE EOSINOPHILS # (AUTO) 0.1 10^3/uL (0.0-0.6); ABSOLUTE LYMPHOCYTES (AUTO) 0.8 10^3/uL (0.5-4.7); ABSOLUTE MONOCYTES (AUTO) 0.5 10^3/uL (0.1-1.4); ABSOLUTE NEUT (AUTO) 6.4 10^3/uL (1.7-8.2); BASOPHILS % (AUTO) 0.6 % (0-2); EOSINOPHILS % (AUTO) 1.6 % (0-6); HEMATOCRIT 31.2 % (36.0-47.0); LYMPHOCYTES % (AUTO) 9.7 % (13-45); MEAN CORPUSCULAR HEMOGLOBIN 28.5 pg (27.0-33.4); MEAN CORPUSCULAR VOLUME 86 fl (80-97); MONOCYTES % (AUTO) 6.3 % (3-13); PLATELET COUNT 261 10^3/uL (150-450); RED BLOOD COUNT 3.61 10^6/uL (3.72-5.28); RED CELL DISTRIBUTION WIDTH 17.4 % (11.5-14.0); SEGMENTED NEUTROPHILS % (AUTO) 81.8 % (42-78); TOTAL CELLS COUNTED % (AUTO) 100 %; WHITE BLOOD COUNT 7.8 10^3/uL (4.0-10.5)
[2017-05-28 16:17] LABS: HEMOGLOBIN 10.3 g/dL (12.0-15.5)
[2017-05-28] MEDS: CARVEDILOL 3.125 MG TABLET PO SCH (21:12)
[2017-05-28] MEDS ORDERED: BUMETANIDE INJ/PF 1 MG/4 ML SDV IV SCH (22:00)
[2017-05-29] MEDS: HYDRALAZINE HCL 10 MG TABLET PO SCH ×3 (05:52→22:15)
[2017-05-29] MEDS: OXYCODONE-ACETAMINOPHEN 5-325 MG TABLET PO PRN ×3 (06:30→22:15)
[2017-05-29 06:45] LABS: ABSOLUTE BASOPHILS # (AUTO) 0.1 10^3/uL (0.0-0.2); ABSOLUTE EOSINOPHILS # (AUTO) 0.2 10^3/uL (0.0-0.6); ABSOLUTE LYMPHOCYTES (AUTO) 1.6 10^3/uL (0.5-4.7); ABSOLUTE MONOCYTES (AUTO) 0.6 10^3/uL (0.1-1.4); ABSOLUTE NEUT (AUTO) 5.5 10^3/uL (1.7-8.2); BASOPHILS % (AUTO) 0.6 % (0-2); EOSINOPHILS % (AUTO) 3.1 % (0-6); HEMOGLOBIN 10.6 g/dL (12.0-15.5); MEAN CORPUSCULAR HEMOGLOBIN 28.5 pg (27.0-33.4); MEAN CORPUSCULAR HGB CONC 33.2 g/dL (32.0-36.0); MEAN CORPUSCULAR VOLUME 86 fl (80-97); MONOCYTES % (AUTO) 8.1 % (3-13); PLATELET COUNT 297 10^3/uL (150-450); RED BLOOD COUNT 3.72 10^6/uL (3.72-5.28); RED CELL DISTRIBUTION WIDTH 17.1 % (11.5-14.0); SEGMENTED NEUTROPHILS % (AUTO) 68.2 % (42-78); TOTAL CELLS COUNTED % (AUTO) 100 %
[2017-05-29 07:12] LABS: TRANSFERRIN 227 mg/dL (200-370)
[2017-05-29 07:20] LABS: ANION GAP 10 (5-19); BLOOD UREA NITROGEN 38 mg/dL (7-20); CALCIUM 9.2 mg/dL (8.4-10.2); CARBON DIOXIDE 33 mmol/L (22-30); CHLORIDE 98 mmol/L (98-107); GLUCOSE 44 mg/dL (75-110); POTASSIUM 3.8 mmol/L (3.6-5.0); SODIUM 141.3 mmol/L (137-145)
[2017-05-29] MEDS ORDERED: BUMETANIDE 1 MG TABLET PO SCH ×2 (10:00→18:00)
[2017-05-29] MEDS: DOCUSATE SODIUM 100 MG CAPSULE PO SCH (11:05)
[2017-05-29] MEDS: ASPIRIN 81 MG TABLET, ENT COATED PO SCH (11:05)
[2017-05-29] MEDS: TIOTROPIUM BROMIDE DPI 5 CAP/KIT (18 MCG/CAP) IH SCH (11:06)
[2017-05-29] MEDS: CLOPIDOGREL BISULFATE 75 MG TABLET PO SCH (11:06)
[2017-05-29] MEDS: FLUTICASONE/SALMETEROL DISKUS 500-50 MCG/DOSE IH SCH ×2 (11:06→21:11)
[2017-05-29] MEDS: GLIPIZIDE 10 MG TABLET PO SCH ×2 (11:06→21:12)
[2017-05-29] MEDS: CARVEDILOL 3.125 MG TABLET PO SCH ×2 (11:06→22:15)
[2017-05-29] MEDS: BUMETANIDE 1 MG TABLET PO SCH (11:07)
[2017-05-29 14:39] LABS: A/G RATIO 0.9 (0.7-1.7); ALBUMIN 2 2.7 g/dL (2.9-4.4); ALPHA-2-GLOBULIN 2 0.7 g/dL (0.4-1.0); MONOCLONAL SPIKE Not Observed g/dL (Not Observed); PROTEIN TOTAL SERUM 5.7 g/dL (6.0-8.5)
--- NOTE | 2017-05-29 14:43 | PDOC PROGRESS REPORT ---
Subjective Progress Note for:: 05/29/17 Subjective:: Patient was sitting up on the edge of her bed. She has had no complaints of SOB , chest pain, n/v/d/c. She produced 2.6L of urine yesterday. She is still complaining of the swelling in her legs. Reason For Visit: ACUTE ON CHRONIC HEART FAILURE Physical Exam Vital Signs: Temp Pulse Resp BP Pulse Ox 98.4 F 72 18 121/79 100 05/29/17 08:10 05/29/17 08:10 05/29/17 08:10 05/29/17 08:10 05/29/17 08:10 Intake & Output 05/28/17 05/29/17 05/30/17 06:59 06:59 06:59 Intake Total 1281 1050 Output Total 3850 2650 Balance -2569 -1600 Weight 76.3 kg 75.5 kg General appearance: PRESENT: no acute distress, well-developed, well-nourished Mouth exam: PRESENT: moist, neck supple Neck exam: PRESENT: full ROM. ABSENT: JVD Respiratory exam: PRESENT: crackles. ABSENT: accessory muscle use, clear to auscultation gita, rales, rhonchi, wheezes Cardiovascular exam: PRESENT: +S1, +S2, systolic murmur GI/Abdominal exam: PRESENT: soft. ABSENT: mass, organomegaly, tenderness Extremities exam: PRESENT: pedal edema, tenderness, +2 edema Musculoskeletal exam: PRESENT: tenderness. ABSENT: normal inspection Neurological exam: PRESENT: alert, awake, oriented to person, oriented to place , oriented to time, oriented to situation Psychiatric exam: PRESENT: appropriate affect, normal mood Skin exam: PRESENT: erythema, intact, warm. ABSENT: cyanosis Results Laboratory Results: 05/29/17 06:03 05/29/17 06:03 05/27/17 05/28/17 05/29/17 02:40 15:28 06:03 WBC 7.8 8.0 RBC 3.61 L 3.72 Hgb 10.3 L D 10.6 L Hct 31.2 L 32.0 L MCV 86 86 MCH 28.5 28.5 MCHC 33.0 33.2 RDW 17.4 H 17.1 H Plt Count 261 297 Seg Neutrophils % 81.8 H 68.2 Lymphocytes % 9.7 L 20.0 Monocytes % 6.3 8.1 Eosinophils % 1.6 3.1 Basophils % 0.6 0.6 Absolute Neutrophils 6.4 5.5 Absolute Lymphocytes 0.8 1.6 Absolute Monocytes 0.5 0.6 Absolute Eosinophils 0.1 0.2 Absolute Basophils 0.0 0.1 Sodium Potassium Chloride Carbon Dioxide Anion Gap BUN Creatinine Est GFR ( Amer) Est GFR (Non-Af Amer) Glucose Calcium Magnesium Transferrin 227 05/29/17 06:03 WBC RBC Hgb Hct MCV MCH MCHC RDW Plt Count Seg Neutrophils % Lymphocytes % Monocytes % Eosinophils % Basophils % Absolute Neutrophils Absolute Lymphocytes Absolute Monocytes Absolute Eosinophils Absolute Basophils Sodium 141.3 Potassium 3.8 Chloride 98 Carbon Dioxide 33 H Anion Gap 10 BUN 38 H Creatinine 2.00 H Est GFR ( Amer) 30 L Est GFR (Non-Af Amer) 25 L Glucose 44 L Calcium 9.2 Magnesium 1.9 Transferrin 05/26/17 05/26/17 05/27/17 14:37 20:10 02:40 Creatine Kinase CK-MB (CK-2) Troponin I < 0.012 < 0.012 < 0.012 NT-Pro-B Natriuret Pep 05/27/17 05/27/17 05/28/17 02:40 02:40 04:36 Creatine Kinase 202 H CK-MB (CK-2) 0.59 Troponin I NT-Pro-B Natriuret Pep [id number] H Impressions: Chest X-Ray 05/26/17 12:30 IMPRESSION: Constellation of findings consistent with clinically suspected CHF exacerbation. Assessment & Plan - Diagnosis (1) Acute on chronic diastolic heart failure Is this a current diagnosis for this admission?: Yes Plan: After talking with Dr. Poole both of use feel that she could benefit from a couple more days of in-hospital diuresis. Looks to still have several kilos of fluid on. (2) CKD (chronic kidney disease), stage IV Is this a current diagnosis for this admission?: Yes Plan: looks to be slightly above her baseline of 1.7, due to fluid overload from CHF (3) Iron deficiency anemia Plan: received IV feraheme on Monday. Will consider second dose in a week. Hemoglobin should start to improve after that. If not will work her up as outpatient for anemia due to CKD. (4) COPD (chronic obstructive pulmonary disease) Qualifiers: COPD type: unspecified COPD Qualified Code(s): J44.9 - Chronic obstructive pulmonary disease, unspecified Is this a current diagnosis for this admission?: Yes Plan: currently on continuous O2 (5) S/P MVR (mitral valve repair) Is this a current diagnosis for this admission?: Yes Plan: per cardiology (6) Myalgia Plan: off of statin (7) Hypertension Plan: stable, off of midodrine (8) Diabetes Qualifiers: Diabetes mellitus type: type 2 Diabetes mellitus buttermaker continuous churn insulin use: without detention use Diabetes mellitus complication status: with unspecified complications Qualified Code(s): E11.8 - Type 2 diabetes mellitus with unspecified complications Is this a current diagnosis for this admission?: Yes
[2017-05-29] MEDS: GABAPENTIN 100 MG CAPSULE PO SCH ×2 (15:59→21:13)
--- NOTE | 2017-05-30 04:29 | PDOC PROGRESS REPORT ---
Subjective Progress Note for:: 05/29/17 Subjective:: Patient refers that breathign is better but is having bilateral leg pain. Has been having problems sleepin at night because of pain. Reason For Visit: ACUTE ON CHRONIC HEART FAILURE Physical Exam Vital Signs: Temp Pulse Resp BP Pulse Ox 98.4 F 79 16 128/77 H 100 05/29/17 03:42 05/29/17 03:42 05/29/17 03:42 05/29/17 03:42 05/29/17 03:42 Intake & Output 05/28/17 05/29/17 05/30/17 06:59 06:59 06:59 Intake Total 1281 1050 Output Total 3850 2650 Balance -2569 -1600 Weight 76.3 kg 75.5 kg General appearance: PRESENT: no acute distress, cooperative, obese, well- developed Head exam: PRESENT: atraumatic, normocephalic Eye exam: PRESENT: conjunctiva pink, EOMI, PERRLA Mouth exam: PRESENT: moist Neck exam: PRESENT: full ROM. ABSENT: JVD, lymphadenopathy, tenderness Respiratory exam: PRESENT: clear to auscultation gita Cardiovascular exam: PRESENT: RRR. ABSENT: diastolic murmur, systolic murmur Vascular exam: PRESENT: normal capillary refill GI/Abdominal exam: PRESENT: normal bowel sounds, soft. ABSENT: organolmegaly, tenderness Extremities exam: PRESENT: full ROM, other - 3+ edema Musculoskeletal exam: PRESENT: ambulatory Neurological exam: PRESENT: alert, awake, oriented to person, oriented to place , oriented to time, oriented to situation, CN II-XII grossly intact Psychiatric exam: PRESENT: depressed Skin exam: PRESENT: intact, normal color Results Laboratory Results: 05/29/17 06:03 05/29/17 06:03 05/27/17 05/28/17 05/28/17 02:40 06:54 15:28 WBC 7.8 RBC 3.61 L Hgb 10.3 L D Hct 31.2 L MCV 86 MCH 28.5 MCHC 33.0 RDW 17.4 H Plt Count 261 Seg Neutrophils % 81.8 H Lymphocytes % 9.7 L Monocytes % 6.3 Eosinophils % 1.6 Basophils % 0.6 Absolute Neutrophils 6.4 Absolute Lymphocytes 0.8 Absolute Monocytes 0.5 Absolute Eosinophils 0.1 Absolute Basophils 0.0 Sodium Potassium Chloride Carbon Dioxide Anion Gap BUN Creatinine Est GFR ( Amer) Est GFR (Non-Af Amer) Glucose Calcium Magnesium Transferrin 227 Blood Type A POSITIVE Antibody Screen NEGATIVE 05/29/17 05/29/17 06:03 06:03 WBC 8.0 RBC 3.72 Hgb 10.6 L Hct 32.0 L MCV 86 MCH 28.5 MCHC 33.2 RDW 17.1 H Plt Count 297 Seg Neutrophils % 68.2 Lymphocytes % 20.0 Monocytes % 8.1 Eosinophils % 3.1 Basophils % 0.6 Absolute Neutrophils 5.5 Absolute Lymphocytes 1.6 Absolute Monocytes 0.6 Absolute Eosinophils 0.2 Absolute Basophils 0.1 Sodium 141.3 Potassium 3.8 Chloride 98 Carbon Dioxide 33 H Anion Gap 10 BUN 38 H Creatinine 2.00 H Est GFR ( Amer) 30 L Est GFR (Non-Af Amer) 25 L Glucose 44 L Calcium 9.2 Magnesium 1.9 Transferrin Blood Type Antibody Screen 05/26/17 05/26/17 05/27/17 14:37 20:10 02:40 Creatine Kinase CK-MB (CK-2) Troponin I < 0.012 < 0.012 < 0.012 NT-Pro-B Natriuret Pep 05/27/17 05/27/17 05/28/17 02:40 02:40 04:36 Creatine Kinase 202 H CK-MB (CK-2) 0.59 Troponin I NT-Pro-B Natriuret Pep [id number] H Impressions: Chest X-Ray 05/26/17 12:30 IMPRESSION: Constellation of findings consistent with clinically suspected CHF exacerbation. Assessment & Plan - Diagnosis (1) Acute on chronic diastolic heart failure Is this a current diagnosis for this admission?: Yes Plan: Discontinue Midodrine . To transition to oral Bumex. Good diuresis so far (2) Chronic respiratory failure Qualifiers: Respiratory failure complication: hypoxia Qualified Code(s): J96.11 - Chronic respiratory failure with hypoxia Is this a current diagnosis for this admission?: Yes Plan: Continue oxygen supplementation (3) History of mitral valve repair Is this a current diagnosis for this admission?: Yes Plan: Patient now having problems with mitral stenosis (4) Anemia Qualifiers: Anemia type: due to chronic kidney disease Chronic kidney disease stage: stage 4 (severe) Qualified Code(s): N18.4 - Chronic kidney disease, stage 4 ( severe); D63.1 - Anemia in chronic kidney disease; D63.1 - Anemia in chronic kidney disease Is this a current diagnosis for this admission?: Yes Plan: Improved after tranfusion of one 1 pRBC (5) COPD (chronic obstructive pulmonary disease) Qualifiers: COPD type: unspecified COPD Qualified Code(s): J44.9 - Chronic obstructive pulmonary disease, unspecified Is this a current diagnosis for this admission?: Yes Plan: Continue Advair and Spiriva (6) CKD (chronic kidney disease), stage IV Is this a current diagnosis for this admission?: Yes Plan: Stable (7) Chronic pain syndrome Is this a current diagnosis for this admission?: Yes Plan: Add gabapentin - Time Time Spent with patient: 15-24 minutes Medications reviewed and adjusted accordingly: Yes Anticipated discharge: Home with Homehealth Within: within 24 hours - Inpatient Certification Based on my medical assessment, after consideration of the patient's comorbidities, presenting symptoms, or acuity I expect that the services needed warrant INPATIENT care.: Yes I certify that my determination is in accordance with my understanding of Medicare's requirements for reasonable and necessary INPATIENT services [42 CFR 412.3e].: Yes Medical Necessity: Need Close Monitoring Due to Risk of Patient Decompensation, Need For Continuous Telemetry Monitoring
[2017-05-30 05:24] LABS: ANION GAP 11 (5-19); BLOOD UREA NITROGEN 41 mg/dL (7-20); CALCIUM 8.1 mg/dL (8.4-10.2); CARBON DIOXIDE 31 mmol/L (22-30); CHLORIDE 98 mmol/L (98-107); GLUCOSE 41 mg/dL (75-110); POTASSIUM 3.7 mmol/L (3.6-5.0); SODIUM 140.2 mmol/L (137-145)
[2017-05-30] MEDS: HYDRALAZINE HCL 10 MG TABLET PO SCH (06:02)
[2017-05-30] MEDS: GABAPENTIN 100 MG CAPSULE PO SCH (06:04)
[2017-05-30] MEDS: TIOTROPIUM BROMIDE DPI 5 CAP/KIT (18 MCG/CAP) IH SCH (09:23)
[2017-05-30] MEDS: ASPIRIN 81 MG TABLET, ENT COATED PO SCH (09:23)
[2017-05-30] MEDS: FLUTICASONE/SALMETEROL DISKUS 500-50 MCG/DOSE IH SCH (09:23)
[2017-05-30] MEDS: CARVEDILOL 3.125 MG TABLET PO SCH (09:24)
[2017-05-30] MEDS: CLOPIDOGREL BISULFATE 75 MG TABLET PO SCH (09:24)
[2017-05-30] MEDS: GLIPIZIDE 10 MG TABLET PO SCH (09:24)
[2017-05-30] MEDS: DOCUSATE SODIUM 100 MG CAPSULE PO SCH (09:24)
[2017-05-30] MEDS: BUMETANIDE 1 MG TABLET PO SCH (09:24)
[2017-05-30 13:31] VITALS: BP 120/61
--- NOTE | 2017-05-30 20:05 | PDOC PROGRESS REPORT ---
Subjective Progress Note for:: 05/29/17 Subjective:: Asked to follow patient because of questions from nurses. Patient is generally improved., Review medications. Patient has no complaints. She has been noted to be ambulating without any difficulty. Reason For Visit: ACUTE ON CHRONIC HEART FAILURE Physical Exam Vital Signs: Temp Pulse Resp BP Pulse Ox 98.4 F 75 18 121/79 100 05/29/17 08:10 05/29/17 14:00 05/29/17 08:10 05/29/17 08:10 05/29/17 08:10 Intake & Output 05/28/17 05/29/17 05/30/17 06:59 06:59 06:59 Intake Total 1281 1050 440 Output Total 3850 2650 775 Balance -4579 -1600 -490 Weight 76.3 kg 75.5 kg Exam: GENERAL: well-nourished and in no acute distress. Alert and oriented x3 HEAD: Atraumatic, normocephalic. EYES: Pupils equal round and reactive to light, extraocular movements intact, sclera anicteric, conjunctiva are normal. ENT: TMs normal, nares patent, oropharynx clear without exudates. Moist mucous membranes. No oral ulcerations or bleeding gums noted NECK: supple without lymphadenopathy. Trachea is central. No cervical or axillary lymphadenopathy noted. Carotids are 2+, JVD WNL LUNGS: Respiration seems nonlabored, no significant accessory muscle action noted. Breath sounds clear to auscultation bilaterally and equal noted. No wheezes rales or rhonchi noted. No significant dullness noted on percussion. CHEST: Palpation of the chest wall shows no significant chest wall tenderness. No other significant abnormalities noted. HEART: [place] [employer]NCE, No PSH, 1/6 ALEKSANDRA aortic area, 1/6 law systolic murmur mitral area, no rubs, no gallops. ABDOMEN: Soft, no significant tenderness appreciated, normoactive bowel sounds. No guarding, no rebound. No rigidity noted . No masses appreciated. EXTREMITIES: Pedal pulses are 1-2+, no calf tenderness noted. No clubbing or cyanosis. negative pedal edema noted NEUROLOGICAL: Focused neurological exam showed no significant neurologic deficit. Normal speech, no focal weakness appreciated. PSYCH: Normal mood, normal affect. Judgment and insight within normal limits. SKIN: No significant ecchymosis, skin is noted to be warm. MUSCULOSKELETAL EXAM: No significant acute joint swelling noted. Results Laboratory Results: 05/29/17 06:03 05/29/17 06:03 05/27/17 05/29/17 05/29/17 02:40 06:03 06:03 WBC 8.0 RBC 3.72 Hgb 10.6 L Hct 32.0 L MCV 86 MCH 28.5 MCHC 33.2 RDW 17.1 H Plt Count 297 Seg Neutrophils % 68.2 Lymphocytes % 20.0 Monocytes % 8.1 Eosinophils % 3.1 Basophils % 0.6 Absolute Neutrophils 5.5 Absolute Lymphocytes 1.6 Absolute Monocytes 0.6 Absolute Eosinophils 0.2 Absolute Basophils 0.1 Sodium 141.3 Potassium 3.8 Chloride 98 Carbon Dioxide 33 H Anion Gap 10 BUN 38 H Creatinine 2.00 H Est GFR ( Amer) 30 L Est GFR (Non-Af Amer) 25 L Glucose 44 L Calcium 9.2 Magnesium 1.9 Transferrin 227 05/26/17 05/26/17 05/27/17 14:37 20:10 02:40 Creatine Kinase CK-MB (CK-2) Troponin I < 0.012 < 0.012 < 0.012 NT-Pro-B Natriuret Pep 05/27/17 05/27/17 05/28/17 02:40 02:40 04:36 Creatine Kinase 202 H CK-MB (CK-2) 0.59 Troponin I NT-Pro-B Natriuret Pep [id number] H EKG Comments: Telemetry shows sinus rhythm without any sustained tachycardia or bradycardia. Impressions: Chest X-Ray 05/26/17 12:30 IMPRESSION: Constellation of findings consistent with clinically suspected CHF exacerbation. Assessment & Plan - Diagnosis (1) CHF (congestive heart failure) Qualifiers: Heart failure type: diastolic Heart failure chronicity: acute on chronic Qualified Code(s): I50.33 - Acute on chronic diastolic (congestive) heart failure (2) CAD (coronary artery disease) Qualifiers: Coronary Disease-Associated Artery/Lesion type: [place] artery [place] vs. transplanted heart: [place] heart Associated angina: without angina Qualified Code(s): I25.10 - Atherosclerotic heart disease of [place] coronary artery without angina pectoris Is this a current diagnosis for this admission?: Yes (3) COPD (chronic obstructive pulmonary disease) Qualifiers: COPD type: unspecified COPD Qualified Code(s): J44.9 - Chronic obstructive pulmonary disease, unspecified Is this a current diagnosis for this admission?: Yes (4) S/P MVR (mitral valve repair) Is this a current diagnosis for this admission?: Yes - Notes Notes: Patient noted to be improving. Current medications reviewed. Patient seems to be on adequate regimen. Gradually escalate medications. Patient could follow- up with her primary care billing spec for further adjustment. It probably worthwhile to get a 2D echo as an outpatient. Cardiac enzymes are noted to be negative. If patient has recurrent CHF, would consider also do a ischemia evaluation. - Time Time with patient: 15-25 minutes - CODE STATUS was discussed, patient remains full code. Multiple medical problems were addressed. More than 50% of the time spent coordinating care, discussing management plans with involved caregivers. Management plans discussed with involved personnels. Medical decision making was of moderate to high complexity, patient's has multiple comorbidities. Medications reviewed and adjusted accordingly: Yes
--- NOTE | 2017-05-31 06:18 | PDOC DISCHARGE SUMMARY ---
General - Admit/Disc Date/PCP Admission Date/Primary Care Provider: 05/26/17 14:24 NO LOCALMD Discharge Date: 05/30/17 - Discharge Diagnosis (1) Acute on chronic diastolic heart failure Is this a current diagnosis for this admission?: Yes (2) COPD (chronic obstructive pulmonary disease) Is this a current diagnosis for this admission?: Yes (3) CKD (chronic kidney disease), stage IV Is this a current diagnosis for this admission?: Yes (4) Anemia Is this a current diagnosis for this admission?: Yes (5) Chronic respiratory failure Is this a current diagnosis for this admission?: Yes (6) History of mitral valve repair Is this a current diagnosis for this admission?: Yes (7) Chronic pain syndrome Is this a current diagnosis for this admission?: Yes - Additional Information Resuscitation Status: Full Code Discharge Diet: Cardiac, Diabetic Discharge Activity: Activity As Tolerated, Balance Activity w/Rest, Weigh Daily Prescriptions: Bumetanide [Bumex 1 mg Tablet] 1 mg PO QPM #30 tablet Bumetanide [Bumex 1 mg Tablet] 2 mg PO DAILY #60 tablet Fluticasone/Salmeterol [Advair 500-50 Diskus 14 Dose/Diskus] 1 inh IH Q12 #60 inhaler Gabapentin [Neurontin 100 mg Capsule] 100 mg PO Q8 #90 capsule Hydralazine HCl [Apresoline 10 mg Tablet] 10 mg PO Q8 #90 tablet Tiotropium [place] [Spiriva Handihaler 5 Cap/Kit (18 Mcg/Cap)] 1 cap IH DAILY # 30 kit Home Medications: Aspirin [Aspirin EC] 81 mg PO DAILY 05/27/17 Atorvastatin Calcium [Lipitor 80 mg Tablet] 80 mg PO QHS 05/27/17 Carvedilol [Coreg 3.125 mg Tablet] 3.125 mg PO Q12 05/27/17 Clopidogrel Bisulfate [Plavix 75 mg Tablet] 75 mg PO DAILY 05/27/17 Ergocalciferol (Vitamin D2) [Vitamin D2] 50,000 unit PO Q7D 05/27/17 Glipizide [Glucotrol 5 mg Tablet] 2.5 mg PO DAILY 05/27/17 Oxycodone HCl/Acetaminophen [Percocet 5-325 mg Tablet] 1 tab PO Q6HP PRN Pantoprazole Sodium [Protonix] 40 mg PO DAILY 05/27/17 Potassium Chloride [Klor-Con M20] 20 meq PO DAILY 05/27/17 Bumetanide [Bumex 1 mg Tablet] 1 mg PO QPM #30 tablet 05/30/17 Bumetanide [Bumex 1 mg Tablet] 2 mg PO DAILY #60 tablet 05/30/17 Fluticasone/Salmeterol [Advair 500-50 Diskus 14 Dose/Diskus] 1 inh IH Q12 #60 inhaler 05/30/17 Gabapentin [Neurontin 100 mg Capsule] 100 mg PO Q8 #90 capsule 05/30/17 Hydralazine HCl [Apresoline 10 mg Tablet] 10 mg PO Q8 #90 tablet 05/30/17 Tiotropium [place] [Spiriva Handihaler 5 Cap/Kit (18 Mcg/Cap)] 1 cap IH DAILY # 30 kit 05/30/17 History of Present Illness History of Present Illness: VAMSHI DOUGHERTY is a 71 year old female with past medical history of CAD, post op 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 Patient has noticed over the last 3 weeks she has had increasing lower extremity edema and difficulty breathing. She stated she cannot lay flat at night and was proper self up on pillows. She was having increasing exertional dyspnea. She was seeing nephrology on the day of admission by Dr. Poole and was referred to the ER for admission for acute on chronic heart failure. Dr. Poole stated he will see the patient on consultation in the hospital but the patient did not need any dialysis or anything of that sort. The patient had no fever chills has had a nonproductive cough. Denies sore throat. Denies rashes.Patient was admitted under hospitalist service Hospital Course Hospital Course: Patient was admitted under the hospitalist service. Troponin was trended and negative. Patient received IV diuresis with further improvement of weight. Patient lost a total of 8 kg while hospitalized. Patient was seen by Dr. Shaw who is her marketing finance specialist on as outpatient basis. Major issue on this patient is due to problems related to to a too tight mitral valve replacement. Patient had been referred but does not fit criteria for any further intervention. He recommended to discharge patient on Bumex instead of Lasix. While hospitalized patient was transfused 1 unit of packed red blood cell to try to optimize cardiac status. Renal function experienced a slight improvement when compared to admission. Patient demonstrated cardiorenal syndrome. Dr. Poole followed up patient while hospitalized. Due to the history of COPD patient was placed on Advair and Spiriva. Patient reported improvement of her breathing status as well. Patient received education by the author regarding fluid intake as she appeared to understand. Her was at bedside. She is to follow-up with Dr. Shaw as scheduled as well with PCP and Dr Poole. Since patient had achieved maximum benefit of hospitalization stay prompted to discharge under stable condition Physical Exam Vital Signs: Temp Pulse Resp BP Pulse Ox 98.1 F 85 16 109/63 98 05/30/17 03:54 05/30/17 03:54 05/30/17 03:54 05/30/17 03:54 05/30/17 03:54 Intake & Output 05/28/17 05/29/17 05/30/17 06:59 06:59 06:59 Intake Total 1281 1050 490 Output Total 3850 2650 925 Balance -2569 -1600 -435 Weight 76.3 kg 75.5 kg 71.3 kg General appearance: PRESENT: no acute distress, cooperative, obese Head exam: PRESENT: atraumatic, normocephalic Eye exam: PRESENT: conjunctiva pink, EOMI, PERRLA Ear exam: PRESENT: normal external ear exam Mouth exam: PRESENT: moist Neck exam: PRESENT: full ROM. ABSENT: JVD, lymphadenopathy, tenderness Respiratory exam: PRESENT: clear to auscultation gita Cardiovascular exam: PRESENT: RRR, systolic murmur. ABSENT: diastolic murmur Vascular exam: PRESENT: normal capillary refill GI/Abdominal exam: PRESENT: normal bowel sounds, soft, tenderness Extremities exam: PRESENT: full ROM, +2 edema Musculoskeletal exam: PRESENT: ambulatory Neurological exam: PRESENT: alert, awake, oriented to person, oriented to place , oriented to time, oriented to situation, CN II-XII grossly intact Psychiatric exam: PRESENT: depressed Skin exam: PRESENT: intact, normal color Results Laboratory Results: 05/29/17 06:03 05/30/17 04:33 05/27/17 05/29/17 05/29/17 02:40 06:03 06:03 WBC 8.0 RBC 3.72 Hgb 10.6 L Hct 32.0 L MCV 86 MCH 28.5 MCHC 33.2 RDW 17.1 H Plt Count 297 Seg Neutrophils % 68.2 Lymphocytes % 20.0 Monocytes % 8.1 Eosinophils % 3.1 Basophils % 0.6 Absolute Neutrophils 5.5 Absolute Lymphocytes 1.6 Absolute Monocytes 0.6 Absolute Eosinophils 0.2 Absolute Basophils 0.1 Sodium 141.3 Potassium 3.8 Chloride 98 Carbon Dioxide 33 H Anion Gap 10 BUN 38 H Creatinine 2.00 H Est GFR ( Amer) 30 L Est GFR (Non-Af Amer) 25 L Glucose 44 L Calcium 9.2 Magnesium 1.9 Transferrin 227 05/30/17 04:33 WBC RBC Hgb Hct MCV MCH MCHC RDW Plt Count Seg Neutrophils % Lymphocytes % Monocytes % Eosinophils % Basophils % Absolute Neutrophils Absolute Lymphocytes Absolute Monocytes Absolute Eosinophils Absolute Basophils Sodium 140.2 Potassium 3.7 Chloride 98 Carbon Dioxide 31 H Anion Gap 11 BUN 41 H Creatinine 1.98 H Est GFR ( Amer) 30 L Est GFR (Non-Af Amer) 25 L Glucose 41 L Calcium 8.1 L Magnesium Transferrin 05/26/17 05/26/17 05/27/17 14:37 20:10 02:40 Creatine Kinase CK-MB (CK-2) Troponin I < 0.012 < 0.012 < 0.012 NT-Pro-B Natriuret Pep 05/27/17 05/27/17 05/28/17 02:40 02:40 04:36 Creatine Kinase 202 H CK-MB (CK-2) 0.59 Troponin I NT-Pro-B Natriuret Pep [id number] H Impressions: Chest X-Ray 05/26/17 12:30 IMPRESSION: Constellation of findings consistent with clinically suspected CHF exacerbation. Qualifiers - * PATEINT BEING DISCHARGED WITH ANY OF THE FOLLOWING DIAGNOSIS?: Heart Failure HF Pt being discharged on ACEI for LVEF less than 40%?: Yes HF Pt being discharged on ARBS for LVEF less than 40%?: Yes HF Pt with Afib discharged with Warfarin?: No Reason(s) for not prescribing Warfarin:: Not indicated HF Pt discharged on evidence-based Beta Sanjay:: Yes Plan Discharge Plan: Discharge home with follow-up with Dr. Shaw, Dr. Poole and PCP Time Spent: Greater than 30 Minutes
== END 2017-05-30 13:45 | disposition home or self-care (01) | DRG 291 ==
LOC: ER 12:08 → EH 14:24 → 4W 17:13
PROVIDERS: ADMIT Family Medicine; ATTEND Family Medicine
PROC: 30233N1 Transfusion of Nonautologous Red Blood Cells into Peripheral Vein, Percutaneous Approach (ICD-10-PCS; principal; 2017-05-28)
DX: I13.0 Hypertensive heart and chronic kidney disease with heart failure and stage 1 through stage 4 chronic kidney disease, or unspecified chronic kidney disease (principal); I50.33 Acute on chronic diastolic (congestive) heart failure; N17.9 Acute kidney failure, unspecified; J96.11 Chronic respiratory failure with hypoxia; N18.4 Chronic kidney disease, stage 4 (severe); E11.22 Type 2 diabetes mellitus with diabetic chronic kidney disease; D63.1 Anemia in chronic kidney disease; E11.40 Type 2 diabetes mellitus with diabetic neuropathy, unspecified; I73.9 Peripheral vascular disease, unspecified; I25.10 Atherosclerotic heart disease of native coronary artery without angina pectoris; E78.5 Hyperlipidemia, unspecified; I07.1 Rheumatic tricuspid insufficiency; I37.1 Nonrheumatic pulmonary valve insufficiency; G89.4 Chronic pain syndrome; I25.2 Old myocardial infarction; Z99.81 Dependence on supplemental oxygen; Z79.01 Long term (current) use of anticoagulants; Z79.84 Long term (current) use of oral hypoglycemic drugs; Z79.82 Long term (current) use of aspirin; Z79.891 Long term (current) use of opiate analgesic; Z79.899 Other long term (current) drug therapy
CPT/HCPCS: 36415; 36430; 71046; 80048; 81001; 82550; 82553; 82607; 82728; 82746; 82962; 83540; 83550; 83735; 83880; 84165; 84443; 84466; 84484; 85025; 85045; 86850; 86900; 86901; 86920; 93005; 93010; 96374; 99285; J1940; J3490; J7050; P9016

== ENCOUNTER → 2017-06-19 | Outpatient (CLI) | payer MEDICARE ==
[2017-06-19 10:18] LABS: ABSOLUTE EOSINOPHILS # (AUTO) 0.2 10^3/uL (0.0-0.6); ABSOLUTE LYMPHOCYTES (AUTO) 1.2 10^3/uL (0.5-4.7); ABSOLUTE MONOCYTES (AUTO) 0.7 10^3/uL (0.1-1.4); ABSOLUTE NEUT (AUTO) 6.3 10^3/uL (1.7-8.2); BASOPHILS % (AUTO) 0.6 % (0-2); EOSINOPHILS % (AUTO) 1.9 % (0-6); HEMOGLOBIN 13.2 g/dL (12.0-15.5); LYMPHOCYTES % (AUTO) 14.1 % (13-45); MEAN CORPUSCULAR HGB CONC 33.8 g/dL (32.0-36.0); MEAN CORPUSCULAR VOLUME 86 fl (80-97); MONOCYTES % (AUTO) 8.3 % (3-13); PLATELET COUNT 312 10^3/uL (150-450); RED BLOOD COUNT 4.54 10^6/uL (3.72-5.28); RED CELL DISTRIBUTION WIDTH 16.5 % (11.5-14.0); SEGMENTED NEUTROPHILS % (AUTO) 75.1 % (42-78); TOTAL CELLS COUNTED % (AUTO) 100 %; WHITE BLOOD COUNT 8.5 10^3/uL (4.0-10.5)
[2017-06-19 10:35] LABS: ALANINE AMINOTRANSFERASE 51 U/L (9-52); ALBUMIN 4.1 g/dL (3.5-5.0); ALKALINE PHOSPHATASE 156 U/L (38-126); ANION GAP 10 (5-19); ASPARTATE AMINO TRANSFERASE 47 U/L (14-36); BILIRUBIN,DIRECT 0.5 mg/dL (0.0-0.4); BILIRUBIN,TOTAL 0.6 mg/dL (0.2-1.3); BLOOD UREA NITROGEN 56 mg/dL (7-20); CALCIUM 9.8 mg/dL (8.4-10.2); CARBON DIOXIDE 34 mmol/L (22-30); CHLORIDE 93 mmol/L (98-107); GLUCOSE 172 mg/dL (75-110); IRON(TIBC) 127.9 ug/dL (37-170); PHOSPHORUS 4.8 mg/dL (2.5-4.5); POTASSIUM 5.4 mmol/L (3.6-5.0)
[2017-06-19 14:24] LABS: AMORPHOUS SEDIMENT,URINE TRACE /HPF; APPEARANCE,URINE SLIGHTLY-CLOUDY; BILIRUBIN,URINE NEGATIVE (NEGATIVE); COLOR,URINE YELLOW; GLUCOSE, URINE 50 mg/dL (NEGATIVE); KETONES,URINE NEGATIVE (NEGATIVE); LEUKOCYTE ESTERASE,URINE MODERATE (NEGATIVE); NITRITE,URINE NEGATIVE (NEGATIVE); PROTEIN,URINE >=500 mg/dL (NEGATIVE); URINE SPECIFIC GRAVITY 1.011; UROBILINOGEN,URINE NEGATIVE mg/dL (<2.0)
== END ==
LOC: OD 09:45
PROVIDERS: ATTEND Internal Medicine Nephrology
DX: I12.9 Hypertensive chronic kidney disease with stage 1 through stage 4 chronic kidney disease, or unspecified chronic kidney disease (principal); N18.4 Chronic kidney disease, stage 4 (severe); I50.9 Heart failure, unspecified; E11.9 Type 2 diabetes mellitus without complications
CPT/HCPCS: 36415; 80053; 81001; 82728; 83540; 83550; 83970; 84100; 85025

== ENCOUNTER → 2017-07-19 | Outpatient (CLI) | payer MEDICARE ==
[2017-07-19 13:33] LABS: HEMATOCRIT 22.1 % (36.0-47.0); MEAN CORPUSCULAR HEMOGLOBIN 30.2 pg (27.0-33.4); MEAN CORPUSCULAR HGB CONC 33.9 g/dL (32.0-36.0); MEAN CORPUSCULAR VOLUME 89 fl (80-97); PLATELET COUNT 395 10^3/uL (150-450); RED BLOOD COUNT 2.48 10^6/uL (3.72-5.28); RED CELL DISTRIBUTION WIDTH 19.7 % (11.5-14.0); WHITE BLOOD COUNT 6.3 10^3/uL (4.0-10.5)
[2017-07-19 13:41] LABS: HEMOGLOBIN 7.5 g/dL (12.0-15.5)
[2017-07-19 13:58] LABS: ALANINE AMINOTRANSFERASE 35 U/L (9-52); ALBUMIN 3.4 g/dL (3.5-5.0); ALKALINE PHOSPHATASE 126 U/L (38-126); ANION GAP 10 (5-19); ASPARTATE AMINO TRANSFERASE 25 U/L (14-36); BILIRUBIN,DIRECT 0.5 mg/dL (0.0-0.4); BILIRUBIN,TOTAL 0.5 mg/dL (0.2-1.3); BLOOD UREA NITROGEN 41 mg/dL (7-20); CALCIUM 8.8 mg/dL (8.4-10.2); CARBON DIOXIDE 28 mmol/L (22-30); CHLORIDE 92 mmol/L (98-107); GLUCOSE 126 mg/dL (75-110); PHOSPHORUS 4.8 mg/dL (2.5-4.5); SODIUM 129.8 mmol/L (137-145); TOTAL PROTEIN 6.5 g/dL (6.3-8.2)
[2017-07-19 15:58] LABS: IRON(TIBC) 37.8 ug/dL (37-170)
[2017-07-19 17:21] LABS: APPEARANCE,URINE CLEAR; BILIRUBIN,URINE NEGATIVE (NEGATIVE); COLOR,URINE YELLOW; GLUCOSE, URINE 50 mg/dL (NEGATIVE); KETONES,URINE NEGATIVE (NEGATIVE); LEUKOCYTE ESTERASE,URINE NEGATIVE (NEGATIVE); NITRITE,URINE NEGATIVE (NEGATIVE); PROTEIN,URINE 100 mg/dL (NEGATIVE); URINE SPECIFIC GRAVITY 1.006; UROBILINOGEN,URINE NEGATIVE mg/dL (<2.0)
[2017-07-19 17:30] LABS: URINE CREATININE 29.6 mg/dL (15-278)
[2017-07-19 17:43] LABS: UR PRO/CREAT RATIO RESULT 8.1 mg/mg (0.0-0.2); URINE PROTEIN 239.4 mg/dL (<12)
== END ==
LOC: OD 12:13
PROVIDERS: ATTEND Internal Medicine Nephrology
DX: D64.9 Anemia, unspecified (principal); E11.22 Type 2 diabetes mellitus with diabetic chronic kidney disease; N18.4 Chronic kidney disease, stage 4 (severe); R80.9 Proteinuria, unspecified; I50.9 Heart failure, unspecified; E87.6 Hypokalemia
CPT/HCPCS: 36415; 80053; 81001; 82570; 82728; 83540; 83550; 83970; 84100; 84156; 85027

== ENCOUNTER 2017-07-21 10:08 | Emergency (ER) | payer MEDICARE ==
[2017-07-21] MEDS ORDERED: NORMAL SALINE 250 ML IV PRN (10:58)
--- NOTE | 2017-07-21 11:01 | ER Document Report ---
ED General - General Chief Complaint: Abnormal Lab Results Stated Complaint: ABNORMAL LABS Time Seen by Provider: 07/21/17 10:32 Notes: 71-year-old female sent to emergency department for abnormal labs. Followed by Dr. Poole with nephrology. H&H apparently low. Patient states that she had open heart surgery last year. Since that time she has had worsening symptoms including worsening anemia, shortness of breath, congestive heart failure, worsening renal failure. States that she has also had some intermittent dark stools but also thinks that maybe she is taking iron but not real sure. states whenever she goes to stand up she almost passes out. Has gained 20 pounds over the last several months. Increased swelling of the bilateral lower extremities, shortness of breath, dizziness. No syncope. Denies any chest pain or abdominal pain at this time. Had blood transfusions in the last 6 months. TRAVEL OUTSIDE OF THE [place] IN LAST 30 DAYS: No - HPI Onset/Duration: Gradual, Worse Severity: Moderate Associated symptoms: Leg swelling, Shortness of breath, Sweating, Weakness Exacerbated by: Movement, Walking - Related Data Allergies/Adverse Reactions: Sulfa (Sulfonamide Antibiotics) Allergy (Intermediate, Verified 07/21/17 10:08) Hives Past Medical History - General Information source: Patient, [facility] Records - Social History Smoking Status: Never Smoker Frequency of alcohol use: None Drug Abuse: None Lives with: Spouse/Significant other Family History: CAD, DM, Hypertension - Past Medical History Cardiac Medical History: Reports: Hx Congestive Heart Failure, Hx Coronary Artery Disease, Hx Heart Attack, Hx Hypertension, Hx Peripheral Vascular Disease Pulmonary Medical History: Reports: Hx Asthma, Hx COPD Neurological Medical History: Reports: Hx Cerebrovascular Accident - X 3 RESIDULE EFFECTS RESOLVED, DIFFICULTY WALKING. Denies: Hx Seizures Endocrine Medical History: Reports: Hx Diabetes Mellitus Type 2 - with neuropathy Renal/ Medical History: Reports: Hx Renal Insufficiency. Denies: Hx Peritoneal Dialysis GI Medical History: Reports: Hx Gastroesophageal Reflux Disease. Denies: Hx Hepatitis, Hx Hiatal Hernia, Hx Ulcer Musculoskeltal Medical History: Reports Hx Arthritis Infectious Medical History: Denies: Hx Hepatitis Past Surgical History: Reports: Hx Cardiac Catheterization, Hx Cholecystectomy, Hx Coronary Artery Bypass Graft, Hx Hysterectomy, Hx Open Heart Surgery, Hx Tubal Ligation, Other - Mitral valve repair, cataract surgery - Immunizations Hx Diphtheria, Pertussis, Tetanus Vaccination: No Review of Systems - Review of Systems Constitutional: Diaphoresis, Malaise, Weakness. denies: Fever EENT: denies: Blurred vision, Nose congestion, Mouth pain Cardiovascular: Palpitations, Heart racing, Orthopnea, Dizziness, Lightheaded, Edema. denies: Chest pain, Syncope Respiratory: denies: Cough, Hurts to breathe, Short of breath, Wheezing Gastrointestinal: denies: Abdominal pain, Diarrhea, Nausea, Constipation Genitourinary: denies: Burning, Dysuria, Discharge, Frequency, Flank pain, Urgency Skin: denies: Dryness, Lesions, Lumps, Rash Hematologic/Lymphatic: Anemia, Easy bleeding, Easy bruising Neurological/Psychological: Weakness. denies: Confusion, Dementia, Depression, Anxiety, Paralysis, Seizure, Lost consciousness, Headaches, Numbness Physical Exam - Vital signs Vitals: Temp Pulse Resp BP Pulse Ox 98.4 F 85 16 137/69 H 98 07/21/17 10:12 07/21/17 10:12 07/21/17 10:12 07/21/17 10:12 07/21/17 10:12 Interpretation: Tachycardic - Notes Notes: Pale in appearance. - General General appearance: Appears well, Alert - HEENT Head: Normocephalic, Atraumatic Eyes: Normal Pupils: PERRL - Respiratory Respiratory status: No respiratory distress Chest status: Nontender Breath sounds: Normal Chest palpation: Normal - Cardiovascular Rhythm: Tachycardia Murmur: Yes - Abdominal Inspection: Normal Distension: No distension Bowel sounds: Normal Tenderness: Nontender Organomegaly: No organomegaly - Rectal Tenderness: No Hemorrhoids: None - Back Back: Normal, Nontender - Extremities General upper extremity: Normal inspection, Nontender, Normal color, Normal ROM , Normal temperature General lower extremity: Normal inspection, Nontender, Normal color, Normal ROM , Normal temperature, Normal weight bearing. No: Armando's sign - Neurological Neuro grossly intact: Yes Cognition: Normal Orientation: AAOx4 Joel Coma Scale Eye Opening: Spontaneous Joel Coma Scale Verbal: Oriented [place] Coma Scale Motor: Obeys Commands [place] Coma Scale Total: 15 Speech: Normal Motor strength normal: LUE, RUE, LLE, RLE Sensory: Normal - Psychological Associated symptoms: Normal affect, Normal mood - Skin Skin Temperature: Warm Skin Moisture: Dry Skin Color: Pale Course - Re-evaluation Re-evalutation: 07/21/17 11:15 She with reported low H&H. Labs reviewed and indeed patient has an anemia with hemoglobin of 6. Type and cross for 2 units PRBCs, cardiac labs, EKG, chest x- ray ordered. Anticipate patient will likely need admit 07/21/17 12:57 Patient with hemoglobin of 7 and hematocrit of 21 but symptomatic when she goes from sitting to standing. The hemoglobin 1 month ago was 13. Pale and intermittent tachycardia with occult blood positive from below. No GI is available at this facility. Patient will need to be transferred. Will attempt to find a suitable accepting hospital at this time. 07/21/17 12:58 07/21/17 12:59 Laboratory 07/21/17 07/21/17 07/21/17 10:30 10:30 10:30 WBC 6.4 RBC 2.34 L Hgb 7.1 L Hct 21.1 L MCV 90 MCH 30.4 MCHC 33.7 RDW 20.3 H Plt Count 364 Seg Neutrophils % 78.2 H Lymphocytes % 11.7 L Monocytes % 7.0 Eosinophils % 2.6 Basophils % 0.5 Absolute Neutrophils 5.0 Absolute Lymphocytes 0.7 Absolute Monocytes 0.4 Absolute Eosinophils 0.2 Absolute Basophils 0.0 PT 13.4 INR 0.97 APTT 30.4 Sodium 134.2 L Potassium 5.1 H Chloride 94 L Carbon Dioxide 29 Anion Gap 11 BUN 49 H Creatinine 1.88 H Est GFR ( Amer) 32 L Est GFR (Non-Af Amer) 26 L Glucose 136 H Lactic Acid Calcium 8.9 Total Bilirubin 0.3 Direct Bilirubin 0.3 Neonat Total Bilirubin Not Reportable Neonat Direct Bilirubin Not Reportable Neonat Indirect Bili Not Reportable AST 19 ALT 32 Alkaline Phosphatase 108 Troponin I NT-Pro-B Natriuret Pep Total Protein 6.3 Albumin 3.3 L Stool Occult Blood Blood Type Antibody Screen Crossmatch 07/21/17 07/21/17 07/21/17 10:30 10:30 10:30 WBC RBC Hgb Hct MCV MCH MCHC RDW Plt Count Seg Neutrophils % Lymphocytes % Monocytes % Eosinophils % Basophils % Absolute Neutrophils Absolute Lymphocytes Absolute Monocytes Absolute Eosinophils Absolute Basophils PT INR APTT Sodium Potassium Chloride Carbon Dioxide Anion Gap BUN Creatinine Est GFR ( Amer) Est GFR (Non-Af Amer) Glucose Lactic Acid 1.2 Calcium Total Bilirubin Direct Bilirubin Neonat Total Bilirubin Neonat Direct Bilirubin Neonat Indirect Bili AST ALT Alkaline Phosphatase Troponin I < 0.012 NT-Pro-B Natriuret Pep 07944 H Total Protein Albumin Stool Occult Blood Blood Type A POSITIVE Antibody Screen NEGATIVE Crossmatch See Detail 07/21/17 10:58 WBC RBC Hgb Hct MCV MCH MCHC RDW Plt Count Seg Neutrophils % Lymphocytes % Monocytes % Eosinophils % Basophils % Absolute Neutrophils Absolute Lymphocytes Absolute Monocytes Absolute Eosinophils Absolute Basophils PT INR APTT Sodium Potassium Chloride Carbon Dioxide Anion Gap BUN Creatinine Est GFR ( Amer) Est GFR (Non-Af Amer) Glucose Lactic Acid Calcium Total Bilirubin Direct Bilirubin Neonat Total Bilirubin Neonat Direct Bilirubin Neonat Indirect Bili AST ALT Alkaline Phosphatase Troponin I NT-Pro-B Natriuret Pep Total Protein Albumin Stool Occult Blood POSITIVE Blood Type Antibody Screen Crossmatch 07/21/17 14:11 She has been accepted to [facility] in [facility], Dr. Ferrara has accepted patient. Patient stable at this time. Pending transfer. - Vital Signs Vital signs: Temp Pulse Resp BP Pulse Ox 97.6 F 85 18 160/91 H 100 07/21/17 13:16 07/21/17 10:12 07/21/17 13:46 07/21/17 13:46 07/21/17 13:46 - Laboratory Result Diagrams: 07/21/17 10:30 07/21/17 10:30 Laboratory results interpreted by me: 07/21/17 07/21/17 07/21/17 10:30 10:30 10:30 RBC 2.34 L Hgb 7.1 L Hct 21.1 L RDW 20.3 H Seg Neutrophils % 78.2 H Lymphocytes % 11.7 L Sodium 134.2 L Potassium 5.1 H Chloride 94 L BUN 49 H Creatinine 1.88 H Est GFR ( Amer) 32 L Est GFR (Non-Af Amer) 26 L Glucose 136 H NT-Pro-B Natriuret Pep Albumin 3.3 L Crossmatch See Detail 07/21/17 10:30 RBC Hgb Hct RDW Seg Neutrophils % Lymphocytes % Sodium Potassium Chloride BUN Creatinine Est GFR ( Amer) Est GFR (Non-Af Amer) Glucose NT-Pro-B Natriuret Pep 32055 H Albumin Crossmatch - EKG Interpretation by Nh EKG shows normal: Sinus rhythm, QRS Complexes, ST-T Waves [place]/QRS: Left axis deviation Voltage: Consistant with LVH When compared to previous EKG there are: No significant change Critical Care Note - Critical Care Note Total time excluding time spent on procedures (mins): 60 Comments: Anemia, tachycardia, renal failure, blood loss, consultation with specialist Discharge - Discharge Clinical Impression: Gastrointestinal bleeding Qualifiers: GI bleed type/associated pathology: unspecified gastrointestinal hemorrhage type Qualified Code(s): K92.2 - Gastrointestinal hemorrhage, unspecified Chronic renal disease Qualifiers: Chronic kidney disease stage: unspecified stage Qualified Code(s): N18.9 - Chronic kidney disease, unspecified Congestive heart failure (CHF) Qualifiers: Heart failure type: unspecified Heart failure chronicity: unspecified Qualified Code(s): I50.9 - Heart failure, unspecified Condition: Stable Disposition: [facility] Referrals: Jozef POOLE MD [ACTIVE STAFF] - Follow up as needed
[2017-07-21 11:57] LABS: ABSOLUTE EOSINOPHILS # (AUTO) 0.2 10^3/uL (0.0-0.6); ABSOLUTE LYMPHOCYTES (AUTO) 0.7 10^3/uL (0.5-4.7); ABSOLUTE MONOCYTES (AUTO) 0.4 10^3/uL (0.1-1.4); BASOPHILS % (AUTO) 0.5 % (0-2); EOSINOPHILS % (AUTO) 2.6 % (0-6); HEMATOCRIT 21.1 % (36.0-47.0); LYMPHOCYTES % (AUTO) 11.7 % (13-45); MEAN CORPUSCULAR HEMOGLOBIN 30.4 pg (27.0-33.4); MEAN CORPUSCULAR HGB CONC 33.7 g/dL (32.0-36.0); MEAN CORPUSCULAR VOLUME 90 fl (80-97); PLATELET COUNT 364 10^3/uL (150-450); RED BLOOD COUNT 2.34 10^6/uL (3.72-5.28); RED CELL DISTRIBUTION WIDTH 20.3 % (11.5-14.0); SEGMENTED NEUTROPHILS % (AUTO) 78.2 % (42-78); TOTAL CELLS COUNTED % (AUTO) 100 %; WHITE BLOOD COUNT 6.4 10^3/uL (4.0-10.5)
[2017-07-21 12:03] LABS: INTERNATIONAL RATION (INR) 0.97; PROTHROMBIN TIME 13.4 SEC (11.4-15.4)
[2017-07-21 12:04] LABS: PARTIAL THROMBOPLASTIN TIME 30.4 SEC (23.5-35.8)
[2017-07-21 12:07] LABS: HEMOGLOBIN 7.1 g/dL (12.0-15.5)
[2017-07-21 12:15] LABS: ALANINE AMINOTRANSFERASE 32 U/L (9-52); ALBUMIN 3.3 g/dL (3.5-5.0); ALKALINE PHOSPHATASE 108 U/L (38-126); ANION GAP 11 (5-19); ASPARTATE AMINO TRANSFERASE 19 U/L (14-36); BILIRUBIN,DIRECT 0.3 mg/dL (0.0-0.4); BILIRUBIN,TOTAL 0.3 mg/dL (0.2-1.3); BLOOD UREA NITROGEN 49 mg/dL (7-20); CALCIUM 8.9 mg/dL (8.4-10.2); CARBON DIOXIDE 29 mmol/L (22-30); CHLORIDE 94 mmol/L (98-107); GLUCOSE 136 mg/dL (75-110); POTASSIUM 5.1 mmol/L (3.6-5.0); SODIUM 134.2 mmol/L (137-145); TOTAL PROTEIN 6.3 g/dL (6.3-8.2)
[2017-07-21 12:27] LABS: NT PRO BNP 14700 pg/mL (5-900)
[2017-07-21 12:28] LABS: TROPONIN I < 0.012 ng/mL
[2017-07-21] MEDS ORDERED: PANTOPRAZOLE SODIUM 40 MG VIAL IV ONE ×2 (13:33→20:30)
[2017-07-21] MEDS ORDERED: DEXTROSE 5%-NORMAL SALINE 1,000 ML IV ONE (17:46)
--- NOTE | 2017-07-21 20:54 | EKG REPORT ---
SEVERITY:- ABNORMAL ECG - SINUS RHYTHM PROBABLE LVH WITH SECONDARY REPOL ABNRM : Confirmed by: Jere Ryan 21-Jul-2017 20:54:16
[2017-07-21 21:44] LABS: HEMATOCRIT 28.3 % (36.0-47.0); MEAN CORPUSCULAR HEMOGLOBIN 30.6 pg (27.0-33.4); MEAN CORPUSCULAR HGB CONC 34.2 g/dL (32.0-36.0); MEAN CORPUSCULAR VOLUME 90 fl (80-97); PLATELET COUNT 330 10^3/uL (150-450); RED BLOOD COUNT 3.16 10^6/uL (3.72-5.28); RED CELL DISTRIBUTION WIDTH 18.2 % (11.5-14.0); WHITE BLOOD COUNT 6.5 10^3/uL (4.0-10.5)
[2017-07-21 21:46] LABS: HEMOGLOBIN 9.7 g/dL (12.0-15.5)
[2017-07-21 23:34] VITALS: BP 100/71
== END 2017-07-21 23:45 | disposition short-term general hospital (02) ==
LOC: ER 10:08
DX: D64.9 Anemia, unspecified (principal); R06.02 Shortness of breath; I50.9 Heart failure, unspecified; N19 Unspecified kidney failure; M79.89 Other specified soft tissue disorders; R42 Dizziness and giddiness; R61 Generalized hyperhidrosis; J44.9 Chronic obstructive pulmonary disease, unspecified; E11.40 Type 2 diabetes mellitus with diabetic neuropathy, unspecified; R00.2 Palpitations
CPT/HCPCS: 93005; 96376; 99291; 96361; 96374; 86900; 86901; 36415; 36430; 86850; 85025; 85027; 85610; 85730; 82272; 80053; 84484; 86920; 83605; 83880; 93010; P9016; C9113; S0164

== ENCOUNTER → 2017-07-26 | Emergency (ER) | payer MEDICARE ==
[~2017-07-26] MED LIST changes: -ACETAMINOPHEN 325 MG TABLET PO PRN; -DIPHENHYDRAMINE HCL 25 MG CAPSULE PO PRN; +EPINEPHRINE INJ 1 MG/10 ML DISP.SYRIN ONE; +ROCURONIUM BROMIDE INJ 50 MG/5 ML VIAL IV ONE; +SODIUM BICARBONATE 8.4% INJ 50 MEQ/50 ML DISP.SYRIN ONE
[2017-07-26 18:33] VITALS: BP 80/62
--- NOTE | 2017-07-26 18:40 | RADIOLOGY REPORT (SQ) ---
EXAM DESCRIPTION: CHEST SINGLE VIEW COMPLETED DATE/TIME: 07/26/2017 6:26 pm REASON FOR STUDY: POST ARREST, POST INTUBATION COMPARISON: 05/26/2017 EXAM PARAMETERS: NUMBER OF VIEWS: One view. TECHNIQUE: Single frontal radiographic view of the chest acquired. RADIATION DOSE: NA LIMITATIONS: None. FINDINGS: LUNGS AND PLEURA: No pneumothorax. Mild interstitial prominence. Small bilateral signifi cant effusions. MEDIASTINUM AND HILAR STRUCTURES: Stable. HEART AND VASCULAR STRUCTURES: Similar cardiomegaly. Mild increased vascularity. BONES: No acute findings. HARDWARE: Endotracheal tube tip overlies the mid trachea approximately 5 cm above the level of the ca ary. Nasogastric catheters present with side port near the GE junction. Prior CABG -AVR. OTHER: No other significant finding. IMPRESSION: Endotracheal tube tip overlies the mid trachea approximately 5 cm above the level of the genesis. Nasogastric catheters present with side port near the GE junction.No pneumothorax. Mild in terstitial prominence. Small bilateral significant effusions. TECHNICAL DOCUMENTATION: JOB ID: [id number] [id number] 2010 [employer]- All Rights Reserved Reading location - IP/workstation name: [email or web address]
--- NOTE | 2017-07-26 19:51 | ER Document Report ---
ED General - General Chief Complaint: Cardiac Arrest Stated Complaint: POST ARREST Time Seen by Provider: 07/26/17 17:55 Mode of Arrival: Medic Information source: Emergency Med Personnel Cannot obtain history due to: Intubated Notes: Per EMS has been reported the patient was just discharged from [facility] today. He states that they walked up the stairs and the patient collapsed and was unresponsive. Upon EMS arrival they report asystole. Patient received over 5 rounds of ACLS and epinephrine prior to arrival. EMS achieved ROSC and lost it 3 times prior to arrival. TRAVEL OUTSIDE OF THE [place] IN LAST 30 DAYS: No - HPI Onset: Just prior to arrival Onset/Duration: Sudden Recently seen / treated by doctor: Yes - Related Data Allergies/Adverse Reactions: Sulfa (Sulfonamide Antibiotics) Allergy (Intermediate, Verified 07/21/17 10:08) Hives Past Medical History - General Information source: Emergency Med Personnel, [facility] Records Cannot obtain history due to: Intubated - Social History Smoking Status: Unknown if Ever Smoked Family History: CAD, DM, Hypertension - Past Medical History Cardiac Medical History: Reports: Hx Congestive Heart Failure, Hx Coronary Artery Disease, Hx Heart Attack, Hx Hypertension, Hx Peripheral Vascular Disease Pulmonary Medical History: Reports: Hx Asthma, Hx COPD Neurological Medical History: Reports: Hx Cerebrovascular Accident - X 3 RESIDULE EFFECTS RESOLVED, DIFFICULTY WALKING. Denies: Hx Seizures Endocrine Medical History: Reports: Hx Diabetes Mellitus Type 2 - with neuropathy Renal/ Medical History: Reports: Hx Renal Insufficiency. Denies: Hx Peritoneal Dialysis GI Medical History: Reports: Hx Gastroesophageal Reflux Disease. Denies: Hx Hepatitis, Hx Hiatal Hernia, Hx Ulcer Musculoskeltal Medical History: Reports Hx Arthritis Infectious Medical History: Denies: Hx Hepatitis Past Surgical History: Reports: Hx Cardiac Catheterization, Hx Cardiac Surgery - bypass, Hx Cholecystectomy, Hx Coronary Artery Bypass Graft, Hx Hysterectomy, Hx Open Heart Surgery, Hx Tubal Ligation, Other - Mitral valve repair, cataract surgery - Immunizations Hx Diphtheria, Pertussis, Tetanus Vaccination: No Review of Systems - Review of Systems -: Yes ROS unobtainable due to patient's medical condition Physical Exam - Vital signs Vitals: Pulse Ox 83 L 07/26/17 17:28 - Notes Notes: PHYSICAL EXAMINATION: GENERAL: No spontaneous movements, intubated, on backboard HEAD: Atraumatic, normocephalic. EYES: Pupils fixed and dilated. ENT: Nares patent, oropharynx clear without exudates. LUNGS: Breath sounds with ventilation. HEART: Regular rate and rhythm without murmurs ABDOMEN: Mild abdominal distention Female : deferred NEUROLOGICAL: GCS 3 SKIN: dry mucus membranes Course - Re-evaluation Re-evalutation: 07/26/17 23:26 Chest X-Ray 07/26/17 00:00 IMPRESSION: Endotracheal tube tip overlies the mid trachea approximately 5 cm above the level of the genesis. Nasogastric catheters present with side port near the GE junction.No pneumothorax. Mild interstitial prominence. Small bilateral significant effusions. 07/27/17 23:06 71-year-old female with congestive heart failure, coronary artery disease, COPD , type 2 diabetes, previous CABG presents via EMS after being found in asystole. EMS reports 5 rounds of ACLS prior to arrival. They also report that the patient lost Ross several times while in route. Per EMS states that she just arrived home from [facility] when she got up the stairs and collapse. Upon arrival patient has a Tereso airway in place, bilateral breath sounds. No spontaneous movements. Pupils are fixed and dilated. Several rounds of ACLS were performed. We did achieve and lose Ross several times. We did wait until family arrived before performing our final pulse check which was PEA. At that time time of was called at 1820. Sisters are at the bedside awaiting 's arrival. - Vital Signs Vital signs: Temp Pulse Resp BP Pulse Ox 24 H 80/62 L 88 L 07/26/17 18:10 07/26/17 18:10 07/26/17 18:10 - Diagnostic Test Radiology reviewed: Image reviewed, Reports reviewed Procedures - Intubation Orotracheal Time of Intubation: 18:00 Airway evaluation: Normal anatomy Mallampati Classification: Class 1 Medications: Etomidate Intubation method: Orotracheal Blade type: Mike Blade size: 3 Equipment used: Glidescope ETT size: 7.5 ETT secured at: Teeth ETT secured at (cm): 22 Breath Sounds after Intubation: Equal End tidal CO2 confirmed: Yes Ventilator settings: AC Intubation Complications: No complications Critical Care Note - Critical Care Note Total time excluding time spent on procedures (mins): 60 - minutes of critical care time spent in direct contact evaluating and reevaluating the patient, treating symptoms, reviewing labs and studies and speaking with family and consultants excluding any procedures Discharge - Discharge Clinical Impression: Cardiac arrest Referrals: HANH NATARAJAN MD [Primary Care Provider] - Follow up as needed
--- NOTE | 2017-07-26 22:36 | EKG REPORT ---
SEVERITY:- ABNORMAL ECG - SINUS TACHYCARDIA LEFT ANTERIOR FASCICULAR BLOCK PROBABLE LVH WITH SECONDARY REPOL ABNRM CONSIDER ANTERIOR INFARCT : Confirmed by: Natasha Holcomb MD 26-Jul-2017 22:35:38
== END ==
LOC: ER 17:34
PROC: 0BH17EZ Insertion of Endotracheal Airway into Trachea, Via Natural or Artificial Opening (ICD-10-PCS; principal; 2017-07-26)
DX: I46.9 Cardiac arrest, cause unspecified (principal); I50.9 Heart failure, unspecified; I11.0 Hypertensive heart disease with heart failure; J44.9 Chronic obstructive pulmonary disease, unspecified; E11.9 Type 2 diabetes mellitus without complications; Z95.1 Presence of aortocoronary bypass graft; Z88.2 Allergy status to sulfonamides
CPT/HCPCS: 93005; 99291; 92950; 96374; 71045; 93010; 31500; J3490 ×2; J0171; 94660